=== PATIENT | male | born 1960 | race American Indian/Alaskan Native ===

== ENCOUNTER 2017-03-29 18:15 | Inpatient (IN) ==
[2017-03-29] MEDS ORDERED: IOPAMIDOL 100 ML BOTTLE IJ ONE (18:16)
[2017-03-29] MEDS ORDERED: IPRATROPIUM/ALBUTEROL 3 ML AMPUL.NEB NEB ONE ×3 (18:32→19:28)
[2017-03-29] MEDS ORDERED: 0.9 % SODIUM CHLORIDE 1,000 ML IV ONE ×2 (18:46→19:48)
[2017-03-29 19:12] LABS: Basophils # (Auto) 0 K/mcL (0.0-0.3); Basophils % (Auto) 0.3 % (0.0-2.0); Eosinophils # (Auto) 0.7 K/mcL (0.0-0.7); Eosinophils % (Auto) 5.5 % (0.0-7.0); Granulocytes % (Auto) 61.4 % (38.0-78.0); Lymphocytes # (Auto) 2.9 K/mcL (1.5-4.8); Lymphocytes % (Auto) 23.5 % (15.5-49.0); Mean Cell Volume 85.7 fL (80.0-100.0); Mean Corpuscular HGB Conc 33.6 g/dL (31.0-36.0); Mean Corpuscular Hemoglobin 28.8 pg (26.0-34.0); Monocytes # (Auto) 1.1 K/mcL (0.1-0.9); Monocytes % (Auto) 9.3 % (1.0-12.0); Platelet Count 352 K/mcL (140-440); RBC 4.91 M/mcL (4.50-5.90); Red Cell Distribution Width 13.9 % (11.5-14.5)
[2017-03-29 19:28] LABS: ALT/SGPT 11 U/l (0-40); Albumin 3.9 gm/dL (3.2-5.2); Albumin/Globulin Ratio 0.8 (1.0-2.3); Alkaline Phosphatase 116 U/L (39-117); Blood Urea Nitrogen 24 mg/dl (6-20); proBNP 298.6 pg/ml (0-125)
--- NOTE | 2017-03-29 19:50 | Emergency Department Note ---
SOB HPI - General Chief Complaint: Shortness of Breath/Dyspnea Stated Complaint: shortness of breath Time Seen by Provider: 03/29/17 18:46 Source: patient Mode of arrival: ambulatory Limitations: no limitations - History of Present Illness 56-year-old male comes in with complaint of slowly worsening shortness of breath over the last 1-2 years. He is wheezing and has a history of asthma and briefly smoked back in the 1970s. He has an upcoming appointment with Dr. Burr, the clean room technician, for possible idiopathic pulmonary fibrosis next month. He is not on home oxygen. He does have some chest pressure but no chest pain. Denies fever chills nausea vomiting diarrhea. He states, "I just can't breathe". Looking on his history he also has a history of bronchiectasis. No specific trigger or recent illness - Related Data Home Medications Medication Instructions Recorded Confirmed aspirin 81 mg tablet,delayed 81 mg PO QDAY 03/28/17 03/29/17 release furosemide 20 mg tablet 20 mg PO QDAY 03/28/17 03/29/17 lisinopril 10 mg tablet 10 mg PO QDAY 03/28/17 03/29/17 omeprazole 20 mg capsule,delayed 20 mg PO QDAY cap 03/28/17 03/29/17 release Allergies Allergy/AdvReac Type Severity Reaction Status Date / Time Cyclobenzaprine Allergy Unknown Verified 03/29/17 18:20 naproxen Allergy Unknown Verified 03/29/17 18:20 Review of Systems All systems ED: reviewed and negative except as stated. Past Medical History - Past Medical History Attestation: Yes: The following information was validated with the patient. Medical history: Reports: asthma (and bronchiectasis), coronary artery disease, CVA, hyperlipidemia, hypertension, renal disease, other (psoriasis) Surgical history ED: Reports: no surgical history - Social History smoking status: Former smoker Alcohol use: Reports: Occasionally Physical Exam Mild respiratory distress. Normocephalic atraumatic. Conjunctiva clear sclerae anicteric. No nasal discharge or congestion. Oropharynx pink and moist. Neck is supple without lymphadenopathy thyromegaly or carotid bruit. Heart is regular rate and rhythm no murmurs appreciated. Lungs are basically clear to auscultation bilaterally but he does have an end expiratory wheeze with pursed lip breathing. He does have some modest improvement after single breathing treatment but end expiratory wheeze and shortness of breath remains. Abdomen is soft nontender nondistended. +2 radial pulse. No pedal edema. He is alert oriented able to answer questions appropriately and can talk in full sentences but he does take frequent shallow breaths. No dysarthria ataxia - General Limitations: no limitations Course Vital Signs Temperature 98.0 F 03/29/17 18:16 Respiratory Rate 30 H 03/29/17 18:16 Blood Pressure 100/61 03/29/17 18:16 Pulse Oximetry (%) 90 03/29/17 18:16 Temperature 98.0 F 03/29/17 18:16 Pulse Rate 106 H 03/29/17 20:04 Respiratory Rate 26 H 03/29/17 20:04 Blood Pressure 131/101 03/29/17 20:04 Pulse Oximetry (%) 96 03/29/17 20:04 Shortness of Breath/Dyspnea - Lab Data Lab results reviewed: Yes I reviewed the patient's lab results. Result diagrams: 03/29/17 18:20 03/29/17 18:20 Lab Results 03/29/17 03/29/17 03/29/17 Range/Units 18:20 18:20 18:20 WBC 12.3 H (4.5-11.0) K/mcL RBC 4.91 (4.50-5.90) M/mcL Hgb 14.1 (13.5-16.5) g/dL Hct 42.1 (41.0-55.0) % POC Hct 41.0 (41.0-55.0) % MCV 85.7 (80.0-100.0) fL MCH 28.8 (26.0-34.0) pg MCHC 33.6 (31.0-36.0) g/dL RDW 13.9 (11.5-14.5) % Plt Count 352 (140-440) K/mcL MPV 8.3 (7.4-10.4) fL Gran % 61.4 (38.0-78.0) % Lymph % (Auto) 23.5 (15.5-49.0) % [place] % (Auto) 9.3 (1.0-12.0) % Eos % (Auto) 5.5 (0.0-7.0) % Baso % (Auto) 0.3 (0.0-2.0) % Gran # 7.5 (1.8-8.0) K/mcL Lymph # (Auto) 2.9 (1.5-4.8) K/mcL [place] # (Auto) 1.1 H (0.1-0.9) K/mcL Eos # (Auto) 0.7 (0.0-0.7) K/mcL Baso # (Auto) 0 (0.0-0.3) K/mcL D-Dimer 1.86 H (0.00-0.40) ug/ml POC Sodium 140 (133-145) mmol/L Sodium 138 (133-145) mmol/L POC Potassium 3.6 (3.3-5.1) mmol/L Potassium 3.3 (3.3-5.1) mmol/L POC Chloride 107 (96-108) mmol/L Chloride 99 (96-108) mmol/L Carbon Dioxide 21 L (22-30) mmol/L POC Total CO2 21 L (22-30) mmol/L Anion Gap 18.0 H (8-16) POC BUN 24 H (6-20) mg/dl BUN 24 H (6-20) mg/dl Creatinine 1.8 H (0.7-1.2) mg/dl POC Creatinine 1.6 H (0.7-1.2) mg/dl GFR Calculation 41 Glucose 118 H (70-105) mg/dL POC Glucose 109 H (70-105) mg/dL Calcium 8.6 (8.6-10.4) mg/dl POC WB Ioniz Calcium 0.96 L (1.16-1.32) mmol/L Total Bilirubin 0.4 (0.0-1.0) mg/dL AST 16 (0-37) U/l ALT 11 (0-40) U/l Alkaline Phosphatase 116 (39-117) U/L Troponin T (0-0.03) ng/ml NT-Pro-B Natriuret Pep 298.6 H (0-125) pg/ml Total Protein 8.7 H (5.9-8.4) gm/dL Albumin 3.9 (3.2-5.2) gm/dL Globulin 4.8 H (2.2-3.7) gm/dL Albumin/Globulin Ratio 0.8 L (1.0-2.3) 03/29/17 Range/Units 18:20 WBC (4.5-11.0) K/mcL RBC (4.50-5.90) M/mcL Hgb (13.5-16.5) g/dL Hct (41.0-55.0) % POC Hct (41.0-55.0) % MCV (80.0-100.0) fL MCH (26.0-34.0) pg MCHC (31.0-36.0) g/dL RDW (11.5-14.5) % Plt Count (140-440) K/mcL MPV (7.4-10.4) fL Gran % (38.0-78.0) % Lymph % (Auto) (15.5-49.0) % [place] % (Auto) (1.0-12.0) % Eos % (Auto) (0.0-7.0) % Baso % (Auto) (0.0-2.0) % Gran # (1.8-8.0) K/mcL Lymph # (Auto) (1.5-4.8) K/mcL [place] # (Auto) (0.1-0.9) K/mcL Eos # (Auto) (0.0-0.7) K/mcL Baso # (Auto) (0.0-0.3) K/mcL D-Dimer (0.00-0.40) ug/ml POC Sodium (133-145) mmol/L Sodium (133-145) mmol/L POC Potassium (3.3-5.1) mmol/L Potassium (3.3-5.1) mmol/L POC Chloride (96-108) mmol/L Chloride (96-108) mmol/L Carbon Dioxide (22-30) mmol/L POC Total CO2 (22-30) mmol/L Anion Gap (8-16) POC BUN (6-20) mg/dl BUN (6-20) mg/dl Creatinine (0.7-1.2) mg/dl POC Creatinine (0.7-1.2) mg/dl GFR Calculation Glucose (70-105) mg/dL POC Glucose (70-105) mg/dL Calcium (8.6-10.4) mg/dl POC WB Ioniz Calcium (1.16-1.32) mmol/L Total Bilirubin (0.0-1.0) mg/dL AST (0-37) U/l ALT (0-40) U/l Alkaline Phosphatase (39-117) U/L Troponin T < 0.01 (0-0.03) ng/ml NT-Pro-B Natriuret Pep (0-125) pg/ml Total Protein (5.9-8.4) gm/dL Albumin (3.2-5.2) gm/dL Globulin (2.2-3.7) gm/dL Albumin/Globulin Ratio (1.0-2.3) rterial blood gas shows a pH 7.4 PCO2 of 40 PO2 of 81% on oxygen - Radiology Data Radiology results reviewed: Yes I reviewed the patient's radiology results. CT scan with angiogram of the chest is done to rule out pulmonary embolism- no embolism is seen. This is compared to previous CT from 4 months ago but today' s scan also shows a pneumonia atop likely end-stage pulmonary fibrosis and bronchiectasis - EKG Data EKG attestation: Yes I reviewed and interpreted this EKG. EKG results narrative: EKG shows a rate of 100 normal sinus rhythm with LVH Disposition Pt seen by BOTTLE LABEL INSPECTOR/PA only: No (MD only) Clinical Impression: Hypoxia, Pulmonary fibrosis Pneumonia Qualifiers: Pneumonia type: due to unspecified organism Laterality: bilateral Lung location : lower lobe of lung Qualified Code(s): J18.9 - Pneumonia, unspecified organism Bronchiectasis Qualifiers: Bronchiectasis type: with acute lower respiratory infection Qualified Code(s): J47.0 - Bronchiectasis with acute lower respiratory infection Summary: patient was initially brought in with oxygen saturations in the 70s - he required 4 L to bring him into the 90s. He does not have home oxygen. Workup done with CT angiogram, laboratory, EKG and ABG. He was given 2 breathing treatments which helped only modestly. He continued to require respiratory support Laboratory shows leukocytosis and CT scan showed new bilateral pneumonia on top end-stage pulmonary fibrosis and bronchiectasis. started Zosyn. discussed case with Dr. Dowling the hospitalist agreed to accept the patient in transfer for further inpatient care Disposition: Xfer As Inpt ([facility]) Condition: Serious Referrals: Kristopher Tillman MD [Primary Care Provider] -
--- NOTE | 2017-03-29 20:13 | Cat Scan Report ---
CLINICAL INFORMATION: History of severe interstitial lung disease with extensive bronchiectasis and honeycombing. Hypoxia. COMPARISON: CT scan dated 10/25/2016. Chest x-rays dated 01/01/2017 and 10/18/2016 TECHNIQUE: Axial images obtained through the chest. 80 mL intravenous contrast administration was administered, and scanning was performed during pulmonary arterial phase. Sagittally and coronally reformatted images were obtained. MIP reformatted images. FINDINGS: Main pulmonary artery, right pulmonary artery, left pulmonary artery are negative. No intraluminal filling defects. No lobar, segmental, or subsegmental abnormalities. Negative examination for pulmonary embolism. Very severe bilateral lung disease. There is extensive bilateral lobe bronchiectasis. There is mild bronchiectasis in the right middle lobe. There is honeycombing. Findings are consistent with severe interstitial lung disease. There has been interval development of extensive groundglass density throughout both lungs. This is predominantly in the lower lobes but there are focal groundglass infiltrates in the upper lobes as well. This is a nonspecific appearance and this patient with severe underlying lung disease. Super imposed pneumonia is suspected. There is extensive mediastinal and right hilar adenopathy. Adenopathy is unchanged since previous examination. No pleural fluid. No pericardial fluid. No axillary or supraclavicular adenopathy. Upper abdomen is negative except for calcified gallstones. Negative thoracic spine. No rib or sternal lesions. IMPRESSION: 1. Very severe lung disease with extensive bronchiectasis and honeycombing. Appearance is consistent with interstitial pulmonary fibrosis. 2. Extensive groundglass density. Findings suggest superimposed pneumonia 3. Mediastinal and right hilar adenopathy, stable 4. Cholelithiasis 5. Negative pulmonary CTA Interpreted and Authenticated by: Jeffrey Schrader 03/29/17
[2017-03-29] MEDS ORDERED: PIPERACILLIN SODIUM/TAZOBACTAM 3.375 GM in DEXTROSE 5% IN WATER 50 ML IV ONE (20:45)
--- NOTE | 2017-03-29 21:00 | Internal Med History&Physical ---
Medical - H&P: HPI Patient information: Note initiated : 03/29/17 at 8:56 pm Patient: Drew Broussard Jr 56 y/o M admitted on for shortness of breath. History of present illness: Mr. Bobo Hayden is a 56 year old man, his chart indicates he has a past history of alcohol abuse, coronary disease, CHF, stroke. The patient presented to the emergency room today complaining that he had been having dizziness and severe headaches and shortness of breath for more than a year now. He says he is gotten to the point where he just cannot take it anymore. He is feeling extremely weak, whenever he tries to walk more than 15 or 20 feet. If he stops to rest, his breathing eventually gets back to normal. He has had persistent headaches, so has been taking ibuprofen 2 tablets every 4-6 hours at home. I believe he was being seen at the [facility] clinic. It looks like someone had started an evaluation back in October, and the patient says he has an upcoming appointment with our lead recoverer, but he has not been seen yet In the emergency room, he was noted to have room air O2 saturations in the 70s, at rest. CT scan of his chest showed diffuse severe disease, consistent with probable IPF, with superimposed infiltrates, worrisome for a new pneumonia. The patient is admitted for treatment of same. Otherwise, he denies recent fever or chills. He does have a chronic cough that is productive of yellowish to greenish sputum, but only very small amounts. He does report chronic headaches and dizziness. He denies new eye or ear symptoms , or sore throat. He denies swollen glands, chest pain or palpitations, abdominal pain, nausea or vomiting, diarrhea or constipation, dysuria. He denies any significant changes in his weight recently. He does admit that he drinks alcohol on an almost daily basis. He says when he drinks varies from vodka to whiskey to beer, and tends to drink with whatever friends he can find and drinks whenever they have. He could not give me a definite amount. Otherwise, he is unemployed, so they should be limited occupational exposure. He smoked for 5 years or so as a child, but quit around age 15. He has a fairly poor historian, and seems unaware of most of his medical history that probably came from the [facility] clinic. He does not recall ever having any heart issues, but thinks he does recall a stroke at some point in the past, but could not remember timeframe. Past medical history: Alcohol abuse Bronchiectasis/asthma Coronary artery disease CHF Hypertension Folate deficiency GERD History of CVA Hyperlipidemia Vitamin D deficiency X Current medications: (Patient is confused about his medications, and actually told the pharmacist that he was not taking aspirin, after confirming to me that he did take aspirin. He also told her that he is allergic to Naprosyn, but also told me that he has been popping ibuprofen quite frequently.) Omeprazole 20 mg daily Lisinopril 10 mg daily Lasix 20 mg daily 81 mg aspirin daily Ibuprofen, [id number], 2 tabs every 4-6 hours as needed headache Allergies: (Patient is unsure about these) Cyclobenzaprine Naprosyn Family history: The patient believes his mother had diabetes. His father's health is unknown. At least one sister has diabetes. Another sister has some type of lung disease. He says his family is "split apart", so he is not in touch with many of them. He reports he has 6 children. He believes they are all healthy. Social history: Distant smoking history in the 1970s. He says he quit around age 15. He drinks vodka, whiskey, and/or beer, most days, depending on which friends he is hanging around with. He is unemployed, other than doing occasional yard work. He has been very physically limited over the last year or so due to his breathing. I believe he said he currently lives with an ex- girlfriend.. He did not want us to call any family members to notify them that he was here. He stated "they do not let me know when they are in the hospital". Medical - H&P: Meds Home Medications Medication Instructions Recorded Confirmed Type aspirin 81 mg tablet,delayed 81 mg PO QDAY 03/28/17 03/29/17 History release furosemide 20 mg tablet 20 mg PO QDAY 03/28/17 03/29/17 History lisinopril 10 mg tablet 10 mg PO QDAY 03/28/17 03/29/17 History omeprazole 20 mg capsule,delayed 20 mg PO QDAY cap 03/28/17 03/29/17 History release Allergies Allergy/AdvReac Type Severity Reaction Status Date / Time Cyclobenzaprine Allergy Mild Hives Verified 03/30/17 09:27 naproxen Allergy Mild Hives Verified 03/30/17 09:28 Medical - H&P: Exam - Constitutional Vitals: Temp Pulse Resp BP Pulse Ox 98.0 F 105 H 32 H 134/76 97 03/29/17 18:16 03/29/17 20:54 03/29/17 20:54 03/29/17 20:46 03/29/17 20:54 On arrival, O2 saturation 86% on room air, dropping into the 70s per the ER MD. 2 saturation 90% on 4 L nasal cannula. Respiratory rate varying from 20-40. Heart rate 105. On exam, initially the patient is not in any distress. He does seem to have mild dyspnea with talking. Otherwise he is calm and cooperative, but he seems to have very limited recall of any of his medical history or even his symptoms. Head: Is normocephalic, atraumatic. Eyes: PERRLA, EOMI, anicteric. Ears: TMs and canals are clear. Pharynx: Is clear. Teeth are in good repair. Mucosa appears normal. Neck: Appears supple, without obvious lymphadenopathy, JVD, thyromegaly, bruits. Cardiac exam: Shows regular rate and rhythm, with normal S1 and S2. I do not appreciate murmurs, rubs, gallops. Lungs: Have fairly diffuse fine crackles throughout all lung figueroa. No significant wheezing or rhonchi is noted at this time. Abdomen: Soft and nontender, without obvious masses. Bowel sounds are active. There is no guarding or rebound. Extremities: Show no significant edema. Pulses are intact. Neurologic exam: Patient is alert and oriented, but extremely forgetful. He seems to lack any insight at all into his health issues. Otherwise his neuro exam is grossly nonfocal. Skin exam: Does not show any obvious rashes or other worrisome skin lesions. Medical - H&P: Reslt - Labs CBC & Chem 7: 03/30/17 05:15 03/30/17 05:15 Labs: Short CBC 03/29/17 Range/Units 18:20 WBC 12.3 H (4.5-11.0) K/mcL Hgb 14.1 (13.5-16.5) g/dL Hct 42.1 (41.0-55.0) % Plt Count 352 (140-440) K/mcL BMP 03/29/17 18:20 Sodium 138 Potassium 3.3 Chloride 99 Carbon Dioxide 21 L BUN 24 H Creatinine 1.8 H Glucose 118 H Calcium 8.6 Cardiac Enzymes 03/29/17 Range/Units 18:20 Troponin T < 0.01 (0-0.03) ng/ml Liver Function 03/29/17 Range/Units 18:20 Total Bilirubin 0.4 (0.0-1.0) mg/dL AST 16 (0-37) U/l ALT 11 (0-40) U/l Alkaline Phosphatase 116 (39-117) U/L Albumin 3.9 (3.2-5.2) gm/dL March 29: D-dimer is elevated at 1.86 Lactic acid is normal at 1.2 next Ionized calcium is low at 0.96 Troponin is normal at less than 0.01 BNP is mildly elevated at 298 Albumin is normal at 3.9 Globulin level is high at 4.8 ABG on room air: PH 7.4, PCO2 40, PO2 81, O2 saturation 96% CT angiogram: Shows severe lung disease with extensive bronchiectasis and honeycombing, consistent with interstitial pulmonary fibrosis. Extensive groundglass infiltrates, in both lungs, are dominantly in the lower lobes, but also focal groundglass infiltrates in the upper lobes. Suggest pneumonia. Mediastinal and right hilar adenopathy, stable. Cholelithiasis. Negative for PE. EKG: Shows sinus tachycardia at a rate of about 100, left axis deviation, nonspecific ST-T changes. January 14, 2017: PFTs: FVC is 2 L which is 51% of predicted. FEV1 is 1.7 L, 58% of predicted. FEV 1 / FVC is 86%. FEF 25-75 is 2.1, 79% of predicted. DLCO is 7.9, which is 31% of predicted. October 26, 2016: Echocardiogram: Moderate hypokinesis of the ventricular septum. Mildly depressed LV function, with ejection fraction 45-50%. Medical - H&P: A/P (1) Pneumonia Current visit: Yes Status: Acute (2) Bronchiectasis Current visit: Yes Status: Chronic (3) Hypoxia Current visit: Yes Status: Acute (4) Pulmonary fibrosis Current visit: Yes Status: Chronic (5) CAD (coronary artery disease) Current visit: No Status: Chronic (6) Alcohol abuse Current visit: Yes Status: Chronic - Narrative A/P Narrative: #1. Pulmonary/infectious disease. -This patient with apparent severe underlying lung disease presents with shortness of breath and hypoxia, and CT findings suggestive of pneumonia superimposed on probable pulmonary fibrosis. Admit. -Blood and sputum cultures -Empiric antibiotic coverage with Zosyn and Zithromax. -Consider inhaled steroids for COPD. -Bronchodilators, oxygen, pulmonary toilet. -Check follow-up chest x-ray in the morning. Check follow-up labs in the morning. -Pulmonary consult, if available. 2. CODE STATUS: Full code. He does not have a written POA, but says he would choose his cousin, Yane Wei. He says he will give her a call in the morning. 3. DVT prophylaxis: Subcu heparin. 4. Renal. Patient presents with abnormal renal function. It is unclear if this is acute or chronic. Hydrate, and recheck labs tomorrow. 5. History of alcohol abuse, ongoing. Start him on the alcohol withdrawal protocol. - crisis intervention counselor regarding the overall effect on his long-term health. 6. History of vitamin D deficiency. -Replace. 7. Cardiac. History of coronary disease, CHF, hypertension. -Continue lisinopril, aspirin, Lasix, assuming his renal function tolerates.. -Inquired about why he is not on a statin cholesterol drug. Since he really has no idea if he is ever been on one, I will go ahead and start him on Lipitor. 8. GI. History of GERD. Continue PPI. 9. Neurologic. Reported history of stroke. Continue aspirin, lisinopril. Consider statin. This visit took approximately 60 minutes, to review the patient's previous test , review his case with the ER MD, review more recent records and test results, interview and examine him, and write orders.
[2017-03-29] MEDS ORDERED: ACETAMINOPHEN 325 MG TABLET PO PRN (21:26)
[2017-03-29] MEDS ORDERED: DOCUSATE SODIUM 100 MG CAPSULE PO PRN (21:26)
[2017-03-29] MEDS ORDERED: ONDANSETRON 4 MG/2 ML VIAL IV PRN (21:26)
[2017-03-29] MEDS ORDERED: MAGNESIUM HYDROXIDE 30 ML ORAL.SUSP PO PRN (21:26)
[2017-03-29] MEDS ORDERED: NALOXONE HCL 0.4 MG/ML VIAL IV PRN (21:26)
[2017-03-29] MEDS ORDERED: ALBUTEROL SULFATE 2.5 MG/3 ML NEBULIZER NEB PRN (21:26)
[2017-03-29] MEDS ORDERED: POTASSIUM CHLORIDE 20 MEQ/10 ML VIAL IV ONE (21:34)
[2017-03-29] MEDS: POTASSIUM CHLORIDE 20 MEQ in 0.45 % SODIUM CHLORIDE 1,000 ML IV SCH (21:50)
[2017-03-29] MEDS: AZITHROMYCIN 500 MG in DEXTROSE 5% IN WATER 250 ML IV SCH (22:20)
[2017-03-30] MEDS ORDERED: PIPERACILLIN SODIUM/TAZOBACTAM 3.375 GM VIAL IV ONE (00:54)
[2017-03-30] MEDS: 0.9 % SODIUM CHLORIDE 10 ML SYRINGE IV SCH ×4 (01:13→21:08)
[2017-03-30] MEDS: PIPERACILLIN SODIUM/TAZOBACTAM 3.375 GM in DEXTROSE 5% IN WATER 50 ML IV SCH ×4 (01:14→20:58)
[2017-03-30] MEDS ORDERED: cloNIDine HCL 0.1 MG TABLET PO PRN (01:42)
[2017-03-30] MEDS ORDERED: LORazepam 2 MG/ML VIAL IV PRN (01:42)
[2017-03-30] MEDS: IPRATROPIUM/ALBUTEROL 3 ML AMPUL.NEB NEB SCH ×4 (01:54→19:15)
[2017-03-30] MEDS: HEPARIN 5,000 UNIT/ML VIAL SQ SCH ×3 (03:04→21:02)
[2017-03-30] MEDS: HYDROcodone/APAP 5/325MG TABLET PO PRN (05:30)
[2017-03-30] MEDS ORDERED: 0.9 % SODIUM CHLORIDE 10 ML SYRINGE IV SCH (06:00)
[2017-03-30 06:36] LABS: Basophils # (Auto) 0 K/mcL (0.0-0.3); Basophils % (Auto) 0.3 % (0.0-2.0); Eosinophils # (Auto) 0.7 K/mcL (0.0-0.7); Eosinophils % (Auto) 5.8 % (0.0-7.0); Granulocytes % (Auto) 68.6 % (38.0-78.0); Lymphocytes % (Auto) 17.7 % (15.5-49.0); Mean Cell Volume 86.4 fL (80.0-100.0); Mean Corpuscular Hemoglobin 28.5 pg (26.0-34.0); Monocytes # (Auto) 0.9 K/mcL (0.1-0.9); Monocytes % (Auto) 7.6 % (1.0-12.0); Platelet Count 311 K/mcL (140-440); RBC 4.58 M/mcL (4.50-5.90); Red Cell Distribution Width 13.6 % (11.5-14.5)
[2017-03-30] MEDS: PANTOPRAZOLE 40 MG TABLET PO SCH (06:59)
[2017-03-30] MEDS: POTASSIUM CHLORIDE 20 MEQ in 0.45 % SODIUM CHLORIDE 1,000 ML IV SCH ×4 (07:00→21:07)
[2017-03-30 07:32] LABS: ALT/SGPT 9 U/l (0-40); Albumin 3.3 gm/dL (3.2-5.2); Albumin/Globulin Ratio 0.8 (1.0-2.3); Alkaline Phosphatase 95 U/L (39-117); Bilirubin,Direct < 0.2 mg/dL (0.0-0.3); Blood Urea Nitrogen 13 mg/dl (6-20); Gamma Glutamyl Transpeptidase 33 U/L (8-61); Magnesium 2.1 mg/dL (1.6-2.5); Uric Acid 6.4 mg/dL (2.5-8.0)
[2017-03-30] MEDS: LISINOPRIL 10 MG TABLET PO SCH (08:57)
[2017-03-30] MEDS: MULTIVIT,THER IRON,CA,FA & MIN 1 TABLET PO SCH (08:57)
[2017-03-30] MEDS: FUROSEMIDE 20 MG TABLET PO SCH (08:58)
[2017-03-30] MEDS: FOLIC ACID 1 MG TABLET PO SCH (08:59)
[2017-03-30] MEDS: THIAMINE 100 MG TABLET PO SCH (08:59)
[2017-03-30 09:39] LABS: Ionized Calcium 1.13 mmol/L (1.16-1.32)
--- NOTE | 2017-03-30 10:12 | XRay Report ---
CLINICAL INFORMATION: Dyspnea TECHNIQUE: AP portable upright chest x-ray COMPARISON: Previous chest x-rays dated 01/01/2017 and 10/18/2016. Comparison made with previous chest CT scans dated 03/29/2017 and 10/25/2016 FINDINGS: Chest CT scan is consistent with severe lung disease, probably interstitial fibrosis. There are diffuse superimposed parenchymal infiltrates which are significantly worse than on 01/01/2017. Radiographic appearance is consistent with underlying lung disease and acute pneumonia. Acute pulmonary edema is possible. Continued radiographic follow-up recommended IMPRESSION: Diffuse parenchymal infiltrates, significantly worse than on 01/01/2017 Interpreted and Authenticated by: Jeffrey Schrader 03/30/17
[2017-03-30] MEDS: ASPIRIN 81 MG TAB.CHEW PO SCH (11:33)
--- NOTE | 2017-03-30 12:59 | Internal Med Progress Note ---
Medical - PN: Subj Patient information: Note initiated : 03/30/17 at 12:59 pm Patient: Drew Broussard Jr 56 y/o M admitted on 03/29/17 for shortness of breath. Interval history: March 29, 2017: History of present illness: Mr. Bobo Hayden is a 56 year old man, whose chart indicates he has a past history of alcohol abuse, coronary disease, CHF, stroke. The patient presented to the emergency room today complaining that he had been having dizziness and severe headaches and shortness of breath for more than a year now. He says he is gotten to the point where he just cannot take it anymore. He is feeling extremely weak, whenever he tries to walk more than 15 or 20 feet. If he stops to rest, his breathing eventually gets back to normal. He has had persistent headaches, so has been taking ibuprofen 2 tablets every 4-6 hours at home. I believe he was being seen at the [facility]. It looks like someone had started an evaluation back in October, and the patient says he has an upcoming appointment with our boiler/chiller operator, but he has not been seen yet In the emergency room, he was noted to have room air O2 saturations in the 70s, at rest. CT scan of his chest showed diffuse severe disease, consistent with probable IPF, with superimposed infiltrates, worrisome for a new pneumonia. The patient is admitted for treatment of same. Otherwise, he denies recent fever or chills. He does have a chronic cough that is productive of yellowish to greenish sputum, but only very small amounts. He does report chronic headaches and dizziness. He denies new eye or ear symptoms , or sore throat. He denies swollen glands, chest pain or palpitations, abdominal pain, nausea or vomiting, diarrhea or constipation, dysuria. He denies any significant changes in his weight recently. March 30: Today, the patient says he feels about the same. He feels okay at rest, but with trying to walk to the bathroom he becomes extremely short of breath. He still has a cough, productive of tiny amounts of yellowish phlegm, with some red streaks. His brother is actually here in the room with him today. He initially got up to use the bathroom early this morning and took his oxygen off. When he got back in bed, his O2 saturations red around 60%. After about 5 minutes on 4 L nasal cannula, he did return back up to 94%. When I entered the room today, he had just come back from the bathroom, while wearing his oxygen. His O2 levels are still down in the 60s at that time, and it did take about 5 minutes before he rebounded into the 90s. Otherwise, he denies fever or chills, chest pain or palpitations, abdominal pain , nausea or vomiting, diarrhea or constipation or dysuria. - Constitutional Vitals: Vital Signs Temp Pulse Resp BP Pulse Ox 97.2 F 100 H 20 133/77 90 03/30/17 12:00 03/30/17 07:47 03/30/17 12:00 03/30/17 12:00 03/30/17 12:00 Period Temp Pulse Resp BP Sys/Hernandez Pulse Ox Last 24 Hr 96.7 F-98.0 F 95-103 14-20 121-138/77-84 90-96 Intake and Output 03/29/17 03/30/17 03/30/17 21:59 05:59 13:59 Intake Total 400 / 400 1610 / 1610 Output Total 425 / 425 1275 / 1275 Balance -25 / -25 335 / 335 Weight 169 lb Patient Weight 03/31/17 05:59 Weight 169 lb O2 saturation is ranging from 60% to about 96%, on 4 L nasal cannula. Intake & Output: Intake & Output 03/29/17 03/30/17 03/30/17 21:59 05:59 13:59 Intake Total 400 / 400 1610 / 1610 Output Total 425 / 425 1275 / 1275 Balance -25 / -25 335 / 335 Weight 169 lb Intake: IV 1010 / 1010 Potassium Chloride 20 Meq 1010 / 1010 In Sodium Chloride 0.45% 1,000 ml @ 100 mls/hr IV .Q10H6M [facility] Rx#: [id number] Oral 400 / 400 GI Tube Flush 600 / 600 Output: Void Amount 425 / 425 1275 / 1275 Other: Meal Breakfast Percent of Meal Consumed 100% Feeding Ability Independent O2 saturation is ranging from 60% to about 96%, on 4 L nasal cannula. On exam, he is a well-developed well-nourished man, who appears older than his stated age. Neck is supple without obvious lymphadenopathy or JVD. Cardiac exam shows regular rate and rhythm without obvious murmurs. Lung exam shows fairly diffuse very fine crackles heard throughout all lung figueroa. No significant wheezing is noted. Abdomen is soft and nontender. Extremities show no significant edema. Neurologic exam is grossly nonfocal. Medical - PN: Obj Da - Labs CBC & Chem 7: 03/30/17 05:15 03/30/17 05:15 Labs: Abnormal Lab Results 03/30/17 03/30/17 03/30/17 08:42 05:15 05:15 WBC 11.2 H Hgb 13.1 L Hct 39.6 L Calcium 7.9 L Ionized Calcium Penny 1.13 L Lactate Dehydrogenase 347 H Globulin 4.1 H Albumin/Globulin Ratio 0.8 L March 30: -Chest x-ray: Diffuse parenchymal infiltrates, significantly worse than the chest x-ray from January 012016. There is evidence for pulmonary fibrosis with superimposed infiltrates consistent with acute pneumonia. Acute pulmonary edema is also possible. CBC differential looks normal this morning. Chemistries: BUN and creatinine are back to normal after hydration. LFTs are within normal limits except for LDH which is elevated at 347. Globulin level remains elevated at 4.1, with normal albumin of 3.3 Calcium continues low at 7.9. Ionized calcium is low at 1.13 March 29: CBC shows white blood cell count 12,000, hemoglobin 14, hematocrit 42, absolute monocyte count a bit elevated at 1100. D-dimer was elevated at 1.86 Lactic acid normal at 1.2 Chemistry panel showed normal electrolytes, but BUN elevated at 24, creatinine elevated at 1.8. Glucose 118. LFTs within normal limits. BNP slightly elevated at 298. ionized calcium is low at 0.96 Troponin is normal at less than 0.01 BNP is mildly elevated at 298 Albumin is normal at 3.9 Globulin level is high at 4.8 ABG on room air: PH 7.4, PCO2 40, PO2 81, O2 saturation 96% CT angiogram: Shows severe lung disease with extensive bronchiectasis and honeycombing, consistent with interstitial pulmonary fibrosis. Extensive groundglass infiltrates, in both lungs, are dominantly in the lower lobes, but also focal groundglass infiltrates in the upper lobes. Suggest pneumonia. Mediastinal and right hilar adenopathy, stable. Cholelithiasis. Negative for PE. EKG: Shows sinus tachycardia at a rate of about 100, left axis deviation, nonspecific ST-T changes. January 14, 2017: PFTs: FVC is 2 L which is 51% of predicted. FEV1 is 1.7 L, 58% of predicted. FEV 1 / FVC is 86%. FEF 25-75 is 2.1, 79% of predicted. DLCO is 7.9, which is 31% of predicted. October 26, 2016: Echocardiogram: Moderate hypokinesis of the ventricular septum. Mildly depressed LV function, with ejection fraction 45-50%. Meds: Medications Acetaminophen (Tylenol) 650 mg PO Q6HP PRN PRN Reason: PAIN/FEVER > 101 Hydrocodone Bitart/Acetaminophen ([place] 5/325mg) 1 tab PO Q4HP PRN PRN Reason: Pain Last Admin: 03/30/17 05:30 Dose: 1 tab Albuterol Sulfate (Ventolin) 2.5 mg NEB Q2HP PRN PRN Reason: Shortness Of Breath Albuterol/Ipratropium (Duoneb) 3 ml NEB Q6HRT [facility] Last Admin: 03/30/17 07:45 Dose: 3 ml Aspirin (Aspirin) 81 mg PO DAILY [facility] Last Admin: 03/30/17 11:33 Dose: 81 mg Budesonide (Pulmicort) 0.5 mg NEB Q12 [facility] Clonidine HCl (Catapres) 0.1 mg PO Q4HP PRN PRN Reason: Alcohol Withdrawal Docusate Sodium (Colace) 100 mg PO BID PRN PRN Reason: Constipation Folic Acid (Folic Acid) 1 mg PO DAILY [facility] Last Admin: 03/30/17 08:59 Dose: 1 mg Furosemide (Lasix) 20 mg PO DAILY [facility] Last Admin: 03/30/17 08:58 Dose: 20 mg Heparin Sodium (Porcine) (Heparin) 5,000 unit SQ Q12 [facility] Last Admin: 03/30/17 08:57 Dose: 5,000 unit Azithromycin 500 mg/ Dextrose 250 mls @ 250 mls/hr IV DAILY [facility] Stop: 03/31/17 09:59 Last Admin: 03/29/17 22:20 Dose: 250 mls/hr Potassium Chloride 20 meq/ (Sodium Chloride) 1,010 mls @ 100 mls/hr IV .Q10H6M [facility] Last Admin: 03/30/17 08:46 Dose: 100 mls/hr Piperacillin Sod/Tazobactam (Sod 3.375 gm/ Dextrose) 50 mls @ 100 mls/hr IV Q6H [facility] Last Admin: 03/30/17 08:56 Dose: 100 mls/hr Iron Carb/Multivit/Assignment Editor/Folic Acid (Multivitamin W/Minerals) 1 tab PO DAILY [facility] Last Admin: 03/30/17 08:57 Dose: 1 tab Lisinopril (Zestril) 10 mg PO DAILY [facility] Last Admin: 03/30/17 08:57 Dose: 10 mg Lorazepam (Ativan) 1 mg IV Q4HP PRN; Protocol PRN Reason: Alcohol Withdrawal Magnesium Hydroxide (Milk Of Magnesia) 30 ml PO DAILYP PRN PRN Reason: Constipation Naloxone HCl (Narcan) 0.1 mg IV Q2MIN PRN PRN Reason: Opiate Reversal Ondansetron HCl (Zofran) 4 mg IV Q6HP PRN PRN Reason: Nausea And Vomiting Pantoprazole Sodium (Protonix) 40 mg PO QAMAC [facility] Last Admin: 03/30/17 06:59 Dose: 40 mg Sodium Chloride (Saline Flush) 10 ml IV Q8 [facility] Last Admin: 03/30/17 06:31 Dose: Not Given Thiamine HCl (Vitamin B1) 100 mg PO QDAY [facility] Last Admin: 03/30/17 08:59 Dose: 100 mg Medical - PN: A/P - Time Spent With Patient Total time spent is greater than 50% in coordination of care (as documented) at patient's floor/unit and/or counseling patient: Greater than 35 minutes (1) Pneumonia Status: Acute Current Visit: Yes (2) Bronchiectasis Status: Chronic Current Visit: Yes (3) Hypoxia Status: Acute Current Visit: Yes (4) Pulmonary fibrosis Status: Chronic Current Visit: Yes (5) CAD (coronary artery disease) Status: Chronic Current Visit: No - Narrative A/P Narrative: #1. Pulmonary/infectious disease. -This patient with apparent severe underlying lung disease presents with shortness of breath and hypoxia, and CT findings suggestive of pneumonia superimposed on probable pulmonary fibrosis. -Blood and sputum cultures are pending. -Empiric antibiotic coverage with Zosyn and Zithromax. -Consider inhaled steroids for COPD. -Bronchodilators, oxygen, pulmonary toilet. -Check follow-up chest x-ray in the morning. Check follow-up labs in the morning. -Pulmonary consult, if available. -He will clearly need to be discharged home on continuous oxygen. 2. CODE STATUS: Full code. He does not have a written POA, but says he would choose his cousin, Yane Wei. He says he will give her a call in the morning. At least he did reach a younger brother today, who is here at the bedside today. 3. DVT prophylaxis: Subcu heparin. 4. Renal. Patient presents with abnormal renal function. Renal function is much improved today, after hydration.. 5. History of alcohol abuse, ongoing. -alcohol withdrawal protocol. - middle school counselor regarding the overall effect on his long-term health. 6. History of vitamin D deficiency. -Replace. 7. Cardiac. History of coronary disease, CHF, hypertension. -Continue lisinopril, aspirin, Lasix, assuming his renal function tolerates.. -Inquired about why he is not on a statin cholesterol drug. Since he really has no idea if he is ever been on one, I will go ahead and start him on Lipitor. 8. GI. History of GERD. Continue PPI. 9. Neurologic. Reported history of stroke. Continue aspirin, lisinopril. Consider statin. #10. Hematologic. Patient does present with anemia, and elevated globulin fraction. It is unclear what role that is playing in his pulmonary symptoms. -Check serum protein electrophoresis. Approximately 35 minutes was spent today, reviewing patient's test results, interviewing and examining him, reviewing test results and plan of care with the patient and his brother, and writing orders. Medical - PN: Qual - VTE Deep Vein Thrombosis/Pulmonary Embolism Present on Admission: No
[2017-03-30] MEDS: BUDESONIDE 0.5 MG/2 ML AMPUL.NEB NEB SCH ×2 (13:37→19:35)
[2017-03-30] MEDS: AZITHROMYCIN 500 MG in DEXTROSE 5% IN WATER 250 ML IV SCH (15:16)
[2017-03-30] MEDS: ATORVASTATIN 20 MG TABLET PO SCH (21:02)
[2017-03-30] MEDS: VITAMIN D3 1,000 UNIT TABLET PO SCH (21:02)
[2017-03-30] MEDS: CALCIUM CARBONATE 500 MG TAB.CHEW CHEWED SCH (21:02)
[2017-03-31] MEDS: IPRATROPIUM/ALBUTEROL 3 ML AMPUL.NEB NEB SCH ×4 (01:28→19:22)
[2017-03-31] MEDS: PIPERACILLIN SODIUM/TAZOBACTAM 3.375 GM in DEXTROSE 5% IN WATER 50 ML IV SCH ×4 (01:28→20:35)
[2017-03-31] MEDS: 0.9 % SODIUM CHLORIDE 10 ML SYRINGE IV SCH ×3 (06:10→22:30)
[2017-03-31] MEDS: POTASSIUM CHLORIDE 20 MEQ in 0.45 % SODIUM CHLORIDE 1,000 ML IV SCH ×4 (06:11→20:34)
[2017-03-31 07:31] LABS: Basophils # (Auto) 0 K/mcL (0.0-0.3); Basophils % (Auto) 0.4 % (0.0-2.0); Eosinophils # (Auto) 0.5 K/mcL (0.0-0.7); Eosinophils % (Auto) 5.1 % (0.0-7.0); Granulocytes % (Auto) 69.3 % (38.0-78.0); Lymphocytes # (Auto) 1.7 K/mcL (1.5-4.8); Lymphocytes % (Auto) 16.4 % (15.5-49.0); Mean Cell Volume 86.1 fL (80.0-100.0); Mean Corpuscular HGB Conc 33.1 g/dL (31.0-36.0); Mean Corpuscular Hemoglobin 28.5 pg (26.0-34.0); Monocytes # (Auto) 0.9 K/mcL (0.1-0.9); Monocytes % (Auto) 8.8 % (1.0-12.0); Platelet Count 306 K/mcL (140-440); RBC 4.24 M/mcL (4.50-5.90); Red Cell Distribution Width 13.3 % (11.5-14.5)
[2017-03-31] MEDS: BUDESONIDE 0.5 MG/2 ML AMPUL.NEB NEB SCH ×2 (07:31→19:22)
[2017-03-31 07:59] LABS: ALT/SGPT 9 U/l (0-40); Albumin/Globulin Ratio 0.7 (1.0-2.3); Alkaline Phosphatase 95 U/L (39-117); Bilirubin,Direct 0.3 mg/dL (0.0-0.3); Blood Urea Nitrogen 6 mg/dl (6-20); Gamma Glutamyl Transpeptidase 40 U/L (8-61); Uric Acid 4.3 mg/dL (2.5-8.0)
[2017-03-31] MEDS: FOLIC ACID 1 MG TABLET PO SCH (08:22)
[2017-03-31] MEDS: CALCIUM CARBONATE 500 MG TAB.CHEW CHEWED SCH ×2 (08:22→20:35)
[2017-03-31] MEDS: VITAMIN D3 1,000 UNIT TABLET PO SCH ×2 (08:22→20:35)
[2017-03-31] MEDS: FUROSEMIDE 20 MG TABLET PO SCH (08:22)
[2017-03-31] MEDS: MULTIVIT,THER IRON,CA,FA & MIN 1 TABLET PO SCH (08:22)
[2017-03-31] MEDS: LISINOPRIL 10 MG TABLET PO SCH (08:22)
[2017-03-31] MEDS: PANTOPRAZOLE 40 MG TABLET PO SCH (08:22)
[2017-03-31] MEDS: HEPARIN 5,000 UNIT/ML VIAL SQ SCH ×2 (08:22→20:34)
[2017-03-31] MEDS: THIAMINE 100 MG TABLET PO SCH (08:22)
[2017-03-31] MEDS: ASPIRIN 81 MG TAB.CHEW PO SCH (08:22)
[2017-03-31] MEDS: AZITHROMYCIN 500 MG in DEXTROSE 5% IN WATER 250 ML IV SCH (10:05)
--- NOTE | 2017-03-31 15:22 | Internal Med Progress Note ---
Medical - PN: Subj Patient information: Note initiated : 03/31/17 at 3:18 pm Service Date, if different from initiated Date: [] Patient: Drew Broussard Jr 56 y/o M admitted on 03/29/17 for shortness of breath. Chief Complaint: [] Interval history: March 29, 2017: History of present illness: Mr. Bobo Hayden is a 56 year old man, whose chart indicates he has a past history of alcohol abuse, coronary disease, CHF, stroke. The patient presented to the emergency room today complaining that he had been having dizziness and severe headaches and shortness of breath for more than a year now. He says he is gotten to the point where he just cannot take it anymore. He is feeling extremely weak, whenever he tries to walk more than 15 or 20 feet. If he stops to rest, his breathing eventually gets back to normal. He has had persistent headaches, so has been taking ibuprofen 2 tablets every 4-6 hours at home. I believe he was being seen at the [facility] clinic. It looks like someone had started an evaluation back in October, and the patient says he has an upcoming appointment with our mold stamper and repairer, but he has not been seen yet In the emergency room, he was noted to have room air O2 saturations in the 70s, at rest. CT scan of his chest showed diffuse severe disease, consistent with probable IPF, with superimposed infiltrates, worrisome for a new pneumonia. The patient is admitted for treatment of same. Otherwise, he denies recent fever or chills. He does have a chronic cough that is productive of yellowish to greenish sputum, but only very small amounts. He does report chronic headaches and dizziness. He denies new eye or ear symptoms , or sore throat. He denies swollen glands, chest pain or palpitations, abdominal pain, nausea or vomiting, diarrhea or constipation, dysuria. He denies any significant changes in his weight recently. March 30: Today, the patient says he feels about the same. He feels okay at rest, but with trying to walk to the bathroom he becomes extremely short of breath. He still has a cough, productive of tiny amounts of yellowish phlegm, with some red streaks. His brother is actually here in the room with him today. He initially got up to use the bathroom early this morning and took his oxygen off. When he got back in bed, his O2 saturations red around 60%. After about 5 minutes on 4 L nasal cannula, he did return back up to 94%. When I entered the room today, he had just come back from the bathroom, while wearing his oxygen. His O2 levels are still down in the 60s at that time, and it did take about 5 minutes before he rebounded into the 90s. Otherwise, he denies fever or chills, chest pain or palpitations, abdominal pain , nausea or vomiting, diarrhea or constipation or dysuria. March 31- patient feels a lot better. pulmonology consult pending. on 4 L oxygen. no overnight fever chills nausea vomiting or concerns per medical staff. Improving cough and dyspnea. On antibiotic coverage. friends at bedside. - Constitutional Vitals: Vital Signs Temp Pulse Resp BP Pulse Ox 98.0 F 98 H 20 100/61 96 03/31/17 12:00 03/31/17 13:21 03/31/17 13:21 03/31/17 12:00 03/31/17 12:00 Period Temp Pulse Resp BP Sys/Hernandez Pulse Ox Last 24 Hr 97.6 F-98.3 F 94-111 18-24 100-122/61-77 94-97 Intake and Output 03/31/17 03/31/17 03/31/17 05:59 13:59 21:59 Intake Total 250 / 250 1300 / 1300 Output Total 400 / 400 675 / 675 Balance -150 / -150 625 / 625 Weight 167 lb Patient Weight 04/01/17 05:59 Weight 167 lb Intake & Output: Intake & Output 03/31/17 03/31/17 03/31/17 05:59 13:59 21:59 Intake Total 250 / 250 1300 / 1300 Output Total 400 / 400 675 / 675 Balance -150 / -150 625 / 625 Weight 167 lb Intake: IV 50 / 50 1060 / 1060 Zosyn 3.375 gm In 50 / 50 50 / 50 Dextrose 5% in Water 50 ml @ 100 mls/hr IV Q6H [facility] Rx#:[id number] Potassium Chloride 20 Meq 1010 / 1010 In Sodium Chloride 0.45% 1,000 ml @ 100 mls/hr IV .Q10H6M [facility] Rx#: [id number] Oral 200 / 200 240 / 240 Output: Void Amount 400 / 400 675 / 675 Other: Meal Breakfast Percent of Meal Consumed 100% Feeding Ability Independent # Voids 1 General appearance: cooperative, no acute distress Exam: Alert oriented nonlabored breathing however on 4 L oxygen No anxiety Nondistended abdomen Medical - PN: Obj Da - Labs CBC & Chem 7: 03/31/17 05:52 03/31/17 05:52 Labs: Abnormal Lab Results 03/31/17 03/31/17 03/30/17 05:52 05:52 08:42 WBC RBC 4.24 L Hgb 12.1 L Hct 36.5 L Calcium 7.9 L Ionized Calcium Penny 1.13 L Lactate Dehydrogenase 324 H Albumin 3.0 L Globulin 4.1 H Albumin/Globulin Ratio 0.7 L 03/30/17 03/30/17 05:15 05:15 WBC 11.2 H RBC Hgb 13.1 L Hct 39.6 L Calcium 7.9 L Ionized Calcium Penny Lactate Dehydrogenase 347 H Albumin Globulin 4.1 H Albumin/Globulin Ratio 0.8 L Meds: Medications Acetaminophen (Tylenol) 650 mg PO Q6HP PRN PRN Reason: PAIN/FEVER > 101 Hydrocodone Bitart/Acetaminophen ([place] 5/325mg) 1 tab PO Q4HP PRN PRN Reason: Pain Last Admin: 03/30/17 05:30 Dose: 1 tab Albuterol Sulfate (Ventolin) 2.5 mg NEB Q2HP PRN PRN Reason: Shortness Of Breath Last Admin: 03/30/17 19:35 Dose: 2.5 mg Albuterol/Ipratropium (Duoneb) 3 ml NEB Q6HRT [facility] Last Admin: 03/31/17 13:20 Dose: 3 ml Aspirin (Aspirin) 81 mg PO DAILY [facility] Last Admin: 03/31/17 08:22 Dose: 81 mg Atorvastatin Calcium (Lipitor) 20 mg PO HS [facility] Last Admin: 03/30/17 21:02 Dose: 20 mg Budesonide (Pulmicort) 0.5 mg NEB Q12 [facility] Last Admin: 03/31/17 07:31 Dose: 0.5 mg Calcium Carbonate/Glycine (Tums) 500 mg CHEWED BID [facility] Last Admin: 03/31/17 08:22 Dose: 500 mg Clonidine HCl (Catapres) 0.1 mg PO Q4HP PRN PRN Reason: Alcohol Withdrawal Last Admin: 03/31/17 08:22 Dose: 0.1 mg Docusate Sodium (Colace) 100 mg PO BID PRN PRN Reason: Constipation Folic Acid (Folic Acid) 1 mg PO DAILY [facility] Last Admin: 03/31/17 08:22 Dose: 1 mg Furosemide (Lasix) 20 mg PO DAILY [facility] Last Admin: 03/31/17 08:22 Dose: 20 mg Heparin Sodium (Porcine) (Heparin) 5,000 unit SQ Q12 [facility] Last Admin: 03/31/17 08:22 Dose: 5,000 unit Potassium Chloride 20 meq/ (Sodium Chloride) 1,010 mls @ 100 mls/hr IV .Q10H6M [facility] Last Admin: 03/31/17 11:58 Dose: Not Given Piperacillin Sod/Tazobactam (Sod 3.375 gm/ Dextrose) 50 mls @ 100 mls/hr IV Q6H [facility] Last Infusion: 03/31/17 09:30 Dose: Infused Iron Carb/Multivit/[place]/Folic Acid (Multivitamin W/Minerals) 1 tab PO DAILY [facility] Last Admin: 03/31/17 08:22 Dose: 1 tab Lisinopril (Zestril) 10 mg PO DAILY [facility] Last Admin: 03/31/17 08:22 Dose: 10 mg Lorazepam (Ativan) 1 mg IV Q4HP PRN; Protocol PRN Reason: Alcohol Withdrawal Magnesium Hydroxide (Milk Of Magnesia) 30 ml PO DAILYP PRN PRN Reason: Constipation Naloxone HCl (Narcan) 0.1 mg IV Q2MIN PRN PRN Reason: Opiate Reversal Ondansetron HCl (Zofran) 4 mg IV Q6HP PRN PRN Reason: Nausea And Vomiting Pantoprazole Sodium (Protonix) 40 mg PO QAMAC [facility] Last Admin: 03/31/17 08:22 Dose: 40 mg Sodium Chloride (Saline Flush) 10 ml IV Q8 [facility] Last Admin: 03/31/17 13:39 Dose: Not Given Thiamine HCl (Vitamin B1) 100 mg PO QDAY [facility] Last Admin: 03/31/17 08:22 Dose: 100 mg Vitamin D (Vitamin D3) 1,000 unit PO BID [facility] Last Admin: 03/31/17 08:22 Dose: 1,000 unit Medical - PN: A/P - Time Spent With Patient Total time spent is greater than 50% in coordination of care (as documented) at patient's floor/unit and/or counseling patient: 15 - 24 minutes - Narrative A/P Narrative: * hypoxic respiratory insufficiency-econdary to primary fibrosis. Pulmonology consulted * Multifocal pneumonia-on antibiotic coverage including Zosyn/ azithromycin.Clinical improvement noted * prophylaxis subcutaneous heparin * Full CODE STATUS * Alcohol dependence-monitor for withdrawal * History of CAD/CHF-continue home meds * History of hypertension continue GABRIEL inhibitor * History of stroke continue aspirin and statin Plan * Antibiotic coverage * Pulmonary consult * pre-existing medical condition management as above Medical - PN: Qual - VTE Deep Vein Thrombosis/Pulmonary Embolism Present on Admission: No
[2017-03-31] MEDS: ATORVASTATIN 20 MG TABLET PO SCH (20:35)
[2017-04-01] MEDS: POTASSIUM CHLORIDE 20 MEQ in 0.45 % SODIUM CHLORIDE 1,000 ML IV SCH ×3 (00:55→19:47)
[2017-04-01] MEDS: PIPERACILLIN SODIUM/TAZOBACTAM 3.375 GM in DEXTROSE 5% IN WATER 50 ML IV SCH ×4 (02:45→19:46)
[2017-04-01] MEDS: IPRATROPIUM/ALBUTEROL 3 ML AMPUL.NEB NEB SCH ×4 (02:45→20:00)
[2017-04-01] MEDS: 0.9 % SODIUM CHLORIDE 10 ML SYRINGE IV SCH ×3 (06:10→23:14)
[2017-04-01 07:33] LABS: Basophils # (Auto) 0.1 K/mcL (0.0-0.3); Basophils % (Auto) 0.5 % (0.0-2.0); Eosinophils # (Auto) 0.6 K/mcL (0.0-0.7); Eosinophils % (Auto) 4.2 % (0.0-7.0); Lymphocytes # (Auto) 1.5 K/mcL (1.5-4.8); Lymphocytes % (Auto) 11.3 % (15.5-49.0); Mean Cell Volume 85.9 fL (80.0-100.0); Mean Corpuscular HGB Conc 33.3 g/dL (31.0-36.0); Mean Corpuscular Hemoglobin 28.6 pg (26.0-34.0); Monocytes # (Auto) 1.2 K/mcL (0.1-0.9); Platelet Count 334 K/mcL (140-440); RBC 4.29 M/mcL (4.50-5.90); Red Cell Distribution Width 13.2 % (11.5-14.5)
[2017-04-01 07:49] LABS: ALT/SGPT 10 U/l (0-40); Albumin 3.3 gm/dL (3.2-5.2); Albumin/Globulin Ratio 0.8 (1.0-2.3); Alkaline Phosphatase 104 U/L (39-117); Bilirubin,Direct 0.3 mg/dL (0.0-0.3); Blood Urea Nitrogen 7 mg/dl (6-20); Gamma Glutamyl Transpeptidase 49 U/L (8-61); Uric Acid 3.9 mg/dL (2.5-8.0)
[2017-04-01] MEDS: BUDESONIDE 0.5 MG/2 ML AMPUL.NEB NEB SCH ×2 (07:55→20:00)
[2017-04-01] MEDS: PANTOPRAZOLE 40 MG TABLET PO SCH (08:08)
[2017-04-01] MEDS: HEPARIN 5,000 UNIT/ML VIAL SQ SCH ×2 (08:33→21:39)
[2017-04-01] MEDS: FOLIC ACID 1 MG TABLET PO SCH (08:33)
[2017-04-01] MEDS: CALCIUM CARBONATE 500 MG TAB.CHEW CHEWED SCH ×2 (08:33→21:39)
[2017-04-01] MEDS: MULTIVIT,THER IRON,CA,FA & MIN 1 TABLET PO SCH (08:33)
[2017-04-01] MEDS: FUROSEMIDE 20 MG TABLET PO SCH (08:33)
[2017-04-01] MEDS: LISINOPRIL 10 MG TABLET PO SCH ×2 (08:33→08:35)
[2017-04-01] MEDS: THIAMINE 100 MG TABLET PO SCH (08:34)
[2017-04-01] MEDS: ASPIRIN 81 MG TAB.CHEW PO SCH (08:34)
[2017-04-01] MEDS: VITAMIN D3 1,000 UNIT TABLET PO SCH ×2 (08:34→21:39)
[2017-04-01] MEDS: OMEPRAZOLE 20 MG CAPSULE PO SCH (08:34)
--- NOTE | 2017-04-01 08:36 | Pulmonology Consult Note ---
History of Present Illness Patient information: Note initiated : 04/01/17 at 8:27 am Service Date, if different from initiated Date: [] Patient: Justin Broussard Jr 56 y/o M admitted on 03/29/17 for shortness of breath. 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 He had a sense of chills but denies fever. The patient indicates that he smoked for a few years but quit at a very young age. 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 He denies unusual pets plants or birds in the home. He does not consider himself to be an allergic person. He does have significant symptomatic gastroesophageal reflux disease. He denies travel outside of the [facility]. He denies known cardiac conditions. He is a vague historian and reports a stroke some years ago which she states mainly affected the left side of his face but had a full recovery in that regard. His ex- presents during the course of the interview and indicates that he can only take 2 or 3 steps trying to mow the lawn; walking around his home also leaves him significantly air hungry and short of breath. Other than hypertension the patient denies known cardiac issues. He has not experienced palpitations and he denies dependent edema or chest pain. He denies joint issues or inflammatory joint disease such as rheumatoid arthritis. He thinks he has a remote negative PPD skin test. The patient does indicate significant alcohol on a daily basis but more recently just when he gets together with his friends. Systems review is not considered reliable negative on questioning in detail fashion. On physical examination patient is a pleasant gentleman in no acute distress. Head is atraumatic and normocephalic. Eyes purulent EOMI sclera and conjunctiva clear. Neck supple carotids without bruits. Lungs significantly decreased breath sounds with fine and coarser interstitial lung sounds scattered throughout both lung figueroa more prevalent in the bases. Heart regular S1-S2 no gallop rub jugular venous distention no dependent edema. Bones joints and extremities are intact neurologic exam is nonfocal. Review of laboratory data indicates a profound interstitial fibrotic process with bronchiectasis and honeycombing. Laboratory values have only mild leukocytosis. Impression impression fibrotic lung disease possibly on the basis of intermittent aspiration reflux disease. This disease is fairly advanced and the patient is likely require oxygen therapy. Will recheck an echocardiogram if not recently performed and. Recommended intense antireflux regimen elevation of head of bed and empty stomach at bedtime. Agree with antibiotics to cover the possibility of pneumonia in his complex clinical setting. I will discuss and follow with. Thank you for the opportunity to participate in care of this pleasant gentleman. Inflammatory markers for rheumatologic pathologic conditions Medications and Allergies Home Medications Medication Instructions Recorded Confirmed Type aspirin 81 mg tablet,delayed 81 mg PO QDAY 03/28/17 03/29/17 History release furosemide 20 mg tablet 20 mg PO QDAY 03/28/17 03/29/17 History lisinopril 10 mg tablet 10 mg PO QDAY 03/28/17 03/29/17 History omeprazole 20 mg capsule,delayed 20 mg PO QDAY cap 03/28/17 03/29/17 History release Allergies Allergy/AdvReac Type Severity Reaction Status Date / Time Cyclobenzaprine Allergy Mild Hives Verified 03/30/17 09:27 naproxen Allergy Mild Hives Verified 03/30/17 09:28 Physical Examination Vital signs: Temp Pulse Resp BP Pulse Ox 98.9 F 101 H 26 H 112/73 91 04/01/17 08:00 04/01/17 04:00 04/01/17 08:00 04/01/17 08:00 04/01/17 08:00 Results - Laboratory Findings CBC and BMP: 04/01/17 05:55 04/01/17 05:55 PT/INR, D-dimer D-Dimer 1.86 ug/ml (0.00-0.40) H 03/29/17 18:20 Abnormal lab findings: Abnormal Labs 03/30/17 03/30/17 03/30/17 05:15 05:15 08:42 WBC 11.2 H RBC Hgb 13.1 L Hct 39.6 L Lymph % (Auto) Gran # Glynn # (Auto) Calcium 7.9 L Ionized Calcium Penny 1.13 L Lactate Dehydrogenase 347 H Albumin Globulin 4.1 H Albumin/Globulin Ratio 0.8 L 03/31/17 03/31/17 04/01/17 05:52 05:52 05:55 WBC 13.5 H RBC 4.24 L 4.29 L Hgb 12.1 L 12.3 L Hct 36.5 L 36.8 L Lymph % (Auto) 11.3 L Gran # 10.1 H Glynn # (Auto) 1.2 H Calcium 7.9 L Ionized Calcium Penny Lactate Dehydrogenase 324 H Albumin 3.0 L Globulin 4.1 H Albumin/Globulin Ratio 0.7 L 04/01/17 05:55 WBC RBC Hgb Hct Lymph % (Auto) Gran # Glynn # (Auto) Calcium Ionized Calcium Penny Lactate Dehydrogenase 344 H Albumin Globulin 4.0 H Albumin/Globulin Ratio 0.8 L
[2017-04-01] MEDS ORDERED: NON FORMULARY MEDICATION 1 DOSE MISCELL (Aspirin [Lo-Dose Aspirin Ec] 81 MG) PO SCH (09:00)
[2017-04-01] MEDS ORDERED: FUROSEMIDE 20 MG TABLET PO SCH (09:00)
--- NOTE | 2017-04-01 10:04 | Internal Med Progress Note ---
Medical - PN: Subj Patient information: Note initiated : 04/01/17 at 10:02 am Service Date, if different from initiated Date: [] Patient: Drew Broussard Jr 56 y/o M admitted on 03/29/17 for shortness of breath. Chief Complaint: [] Interval history: March 29, 2017: History of present illness: Mr. Bobo Hayden is a 56 year old man, whose chart indicates he has a past history of alcohol abuse, coronary disease, CHF, stroke. The patient presented to the emergency room today complaining that he had been having dizziness and severe headaches and shortness of breath for more than a year now. He says he is gotten to the point where he just cannot take it anymore. He is feeling extremely weak, whenever he tries to walk more than 15 or 20 feet. If he stops to rest, his breathing eventually gets back to normal. He has had persistent headaches, so has been taking ibuprofen 2 tablets every 4-6 hours at home. I believe he was being seen at the [facility] clinic. It looks like someone had started an evaluation back in October, and the patient says he has an upcoming appointment with our sales effectiveness manager, but he has not been seen yet In the emergency room, he was noted to have room air O2 saturations in the 70s, at rest. CT scan of his chest showed diffuse severe disease, consistent with probable IPF, with superimposed infiltrates, worrisome for a new pneumonia. The patient is admitted for treatment of same. Otherwise, he denies recent fever or chills. He does have a chronic cough that is productive of yellowish to greenish sputum, but only very small amounts. He does report chronic headaches and dizziness. He denies new eye or ear symptoms , or sore throat. He denies swollen glands, chest pain or palpitations, abdominal pain, nausea or vomiting, diarrhea or constipation, dysuria. He denies any significant changes in his weight recently. March 30: Today, the patient says he feels about the same. He feels okay at rest, but with trying to walk to the bathroom he becomes extremely short of breath. He still has a cough, productive of tiny amounts of yellowish phlegm, with some red streaks. His brother is actually here in the room with him today. He initially got up to use the bathroom early this morning and took his oxygen off. When he got back in bed, his O2 saturations red around 60%. After about 5 minutes on 4 L nasal cannula, he did return back up to 94%. When I entered the room today, he had just come back from the bathroom, while wearing his oxygen. His O2 levels are still down in the 60s at that time, and it did take about 5 minutes before he rebounded into the 90s. Otherwise, he denies fever or chills, chest pain or palpitations, abdominal pain , nausea or vomiting, diarrhea or constipation or dysuria. March 31- patient feels a lot better. pulmonology consult pending. on 4 L oxygen. no overnight fever chills nausea vomiting or concerns per medical staff. Improving cough and dyspnea. On antibiotic coverage. friends at bedside. April 01- patient is doing well. n currently 4 L oxygen. white count 13.5. pulmonology consulted. Recommends echocardiogram/oxygen therapy and antireflux regimen, continue antibiotic coverage for multifocal pneumonia. no overnight fever chills. No concerns from medical staff or patient. - Constitutional Vitals: Vital Signs Temp Pulse Resp BP Pulse Ox 98.9 F 95 H 26 H 112/73 91 04/01/17 08:00 04/01/17 07:55 04/01/17 08:00 04/01/17 08:00 04/01/17 08:00 Period Temp Pulse Resp BP Sys/Hernandez Pulse Ox Last 24 Hr 98.0 F-99.8 F 95-114 16-32 100-116/61-77 90-96 Intake and Output 03/31/17 04/01/17 04/01/17 21:59 05:59 13:59 Intake Total 1790 / 1790 350 / 350 1010 / 1010 Output Total 875 / 875 775 / 775 550 / 550 Balance 915 / 915 -425 / -425 460 / 460 Weight 168 lb Intake & Output: Intake & Output 03/31/17 04/01/17 04/01/17 21:59 05:59 13:59 Intake Total 1790 / 1790 350 / 350 1010 / 1010 Output Total 875 / 875 775 / 775 550 / 550 Balance 915 / 915 -425 / -425 460 / 460 Weight 168 lb Intake: IV 1110 / 1110 50 / 50 1010 / 1010 Zosyn 3.375 gm In 100 / 100 50 / 50 Dextrose 5% in Water 50 ml @ 100 mls/hr IV Q6H [facility] Rx#:[id number] Potassium Chloride 20 Meq 1010 / 1010 1010 / 1010 In Sodium Chloride 0.45% 1,000 ml @ 100 mls/hr IV .Q10H6M [facility] Rx#: [id number] Oral 680 / 680 300 / 300 Output: Void Amount 875 / 875 775 / 775 550 / 550 Other: Meal Dinner Percent of Meal Consumed 100% # Voids 1 General appearance: no acute distress Exam: alert oriented on 4 L oxygen No anxiety nondistended abdomen Medical - PN: Obj Da - Labs CBC & Chem 7: 04/01/17 05:55 04/01/17 05:55 Labs: Abnormal Lab Results 04/01/17 04/01/17 03/31/17 05:55 05:55 05:52 WBC 13.5 H RBC 4.29 L Hgb 12.3 L Hct 36.8 L Lymph % (Auto) 11.3 L Gran # 10.1 H Denali # (Auto) 1.2 H Calcium 7.9 L Ionized Calcium Penny Lactate Dehydrogenase 344 H 324 H Albumin 3.0 L Globulin 4.0 H 4.1 H Albumin/Globulin Ratio 0.8 L 0.7 L 03/31/17 03/30/17 03/30/17 05:52 08:42 05:15 WBC RBC 4.24 L Hgb 12.1 L Hct 36.5 L Lymph % (Auto) Gran # Denali # (Auto) Calcium 7.9 L Ionized Calcium Penny 1.13 L Lactate Dehydrogenase 347 H Albumin Globulin 4.1 H Albumin/Globulin Ratio 0.8 L 03/30/17 05:15 WBC 11.2 H RBC Hgb 13.1 L Hct 39.6 L Lymph % (Auto) Gran # Denali # (Auto) Calcium Ionized Calcium Penny Lactate Dehydrogenase Albumin Globulin Albumin/Globulin Ratio Meds: Medications Acetaminophen (Tylenol) 650 mg PO Q6HP PRN PRN Reason: PAIN/FEVER > 101 Hydrocodone Bitart/Acetaminophen (Tappan 5/325mg) 1 tab PO Q4HP PRN PRN Reason: Pain Last Admin: 03/30/17 05:30 Dose: 1 tab Albuterol Sulfate (Ventolin) 2.5 mg NEB Q2HP PRN PRN Reason: Shortness Of Breath Last Admin: 03/30/17 19:35 Dose: 2.5 mg Albuterol/Ipratropium (Duoneb) 3 ml NEB Q6HRT [facility] Last Admin: 04/01/17 07:55 Dose: 3 ml Aspirin (Aspirin) 81 mg PO DAILY [facility] Last Admin: 04/01/17 08:34 Dose: 81 mg Atorvastatin Calcium (Lipitor) 20 mg PO HS [facility] Last Admin: 03/31/17 20:35 Dose: 20 mg Budesonide (Pulmicort) 0.5 mg NEB Q12 [facility] Last Admin: 04/01/17 07:55 Dose: 0.5 mg Calcium Carbonate/Glycine (Tums) 500 mg CHEWED BID [facility] Last Admin: 04/01/17 08:33 Dose: 500 mg Clonidine HCl (Catapres) 0.1 mg PO Q4HP PRN PRN Reason: Alcohol Withdrawal Last Admin: 03/31/17 08:22 Dose: 0.1 mg Docusate Sodium (Colace) 100 mg PO BID PRN PRN Reason: Constipation Folic Acid (Folic Acid) 1 mg PO DAILY [facility] Last Admin: 04/01/17 08:33 Dose: 1 mg Furosemide (Lasix) 20 mg PO DAILY [facility] Last Admin: 04/01/17 08:33 Dose: 20 mg Furosemide (Lasix) 20 mg PO QDAY [facility] Last Admin: 04/01/17 08:35 Dose: 20 mg Heparin Sodium (Porcine) (Heparin) 5,000 unit SQ Q12 [facility] Last Admin: 04/01/17 08:33 Dose: 5,000 unit Potassium Chloride 20 meq/ (Sodium Chloride) 1,010 mls @ 100 mls/hr IV .Q10H6M [facility] Last Admin: 04/01/17 08:08 Dose: 100 mls/hr Piperacillin Sod/Tazobactam (Sod 3.375 gm/ Dextrose) 50 mls @ 100 mls/hr IV Q6H [facility] Last Admin: 04/01/17 08:34 Dose: 100 mls/hr Iron Carb/Multivit/Television Agent/Folic Acid (Multivitamin W/Minerals) 1 tab PO DAILY [facility] Last Admin: 04/01/17 08:33 Dose: 1 tab Lisinopril (Zestril) 10 mg PO DAILY [facility] Last Admin: 04/01/17 08:33 Dose: 10 mg Lisinopril (Zestril) 10 mg PO QDAY [facility] Last Admin: 04/01/17 08:35 Dose: 10 mg Lorazepam (Ativan) 1 mg IV Q4HP PRN; Protocol PRN Reason: Alcohol Withdrawal Magnesium Hydroxide (Milk Of Magnesia) 30 ml PO DAILYP PRN PRN Reason: Constipation Naloxone HCl (Narcan) 0.1 mg IV Q2MIN PRN PRN Reason: Opiate Reversal Omeprazole (Prilosec) 20 mg PO QAMAC [facility] Last Admin: 04/01/17 08:34 Dose: Not Given Ondansetron HCl (Zofran) 4 mg IV Q6HP PRN PRN Reason: Nausea And Vomiting Pantoprazole [facility]ix) [facility] Last Admin: 04/01/17 08:08 Dose: 40 mg Sodium Chloride (Saline Flush) 10 ml IV Q8 [facility] Last Admin: 04/01/17 06:10 Dose: 10 ml Thiamine HCl (Vitamin B1) 100 mg PO QDAY [facility] Last Admin: 04/01/17 08:34 Dose: 100 mg Vitamin D (Vitamin D3) 1,000 unit PO BID [facility] Last Admin: 04/01/17 08:34 Dose: 1,000 unit Medical - PN: A/P - Time Spent With Patient Total time spent is greater than 50% in coordination of care (as documented) at patient's floor/unit and/or counseling patient: 15 - 24 minutes - Narrative A/P Narrative: * hypoxic respiratory insufficiency-Secondary to primary fibrosis. Pulmonology consulted * Multifocal pneumonia-on antibiotic coverage including Zosyn/ azithromycin.Clinical improvement noted * advance pulmonary fibrosis- oncology consulted. Continue supplemental oxygen/ antireflux regimen. Echo pending * Sepsis secondary to multifocal pneumonia-continue close monitoring. White count 3000 * prophylaxis subcutaneous heparin * Full CODE STATUS * Alcohol dependence-monitor for withdrawal * History of CAD/CHF-continue home meds * History of hypertension continue GABRIEL inhibitor * History of stroke continue aspirin and statin Plan * Antibiotic coverage to continue * echocardiogram * pre-existing medical condition management as above * physical therapy Medical - PN: Qual - VTE Deep Vein Thrombosis/Pulmonary Embolism Present on Admission: No
--- NOTE | 2017-04-01 11:36 | XRay Report ---
CLINICAL INFORMATION: Severe lung disease. Possible aspiration pneumonia TECHNIQUE: Routine air contrast barium swallow COMPARISON: CT scan of the chest dated 03/29/2017 FINDINGS: Abnormal esophageal peristalsis. There are multiple tertiary contractions. 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 No esophageal strictures. No esophageal mass. No hiatal hernia Cervical esophagus is negative. No cricopharyngeal dysmotility. No Zenker's diverticulum. There is pooling in the valleculae. No airway penetration or aspiration observed. There is gastroesophageal reflux to the mid to upper thoracic esophagus. IMPRESSION: 1. Abnormal esophageal peristalsis for age. Tertiary contractions demonstrated as above 2. Gastroesophageal reflux 3. No esophageal strictures. No esophageal mass Interpreted and Authenticated by: Jeffrey Schrader 04/01/17
[2017-04-01] MEDS ORDERED: ACETAMINOPHEN 1,000 MG/100 ML BOTTLE IV PRN (17:31)
[2017-04-01] MEDS: ATORVASTATIN 20 MG TABLET PO SCH (21:39)
[2017-04-01] MEDS: HYDROcodone/APAP 5/325MG TABLET PO PRN (23:56)
[2017-04-02] MEDS: PIPERACILLIN SODIUM/TAZOBACTAM 3.375 GM in DEXTROSE 5% IN WATER 50 ML IV SCH ×5 (01:28→23:36)
[2017-04-02] MEDS: IPRATROPIUM/ALBUTEROL 3 ML AMPUL.NEB NEB SCH ×5 (01:28→23:07)
[2017-04-02] MEDS: 0.9 % SODIUM CHLORIDE 10 ML SYRINGE IV SCH ×3 (04:57→21:19)
[2017-04-02 06:02] LABS: Basophils # (Auto) 0 K/mcL (0.0-0.3); Basophils % (Auto) 0.3 % (0.0-2.0); Eosinophils # (Auto) 0.8 K/mcL (0.0-0.7); Eosinophils % (Auto) 6.3 % (0.0-7.0); Granulocytes % (Auto) 72.3 % (38.0-78.0); Lymphocytes # (Auto) 1.8 K/mcL (1.5-4.8); Lymphocytes % (Auto) 13.5 % (15.5-49.0); Mean Corpuscular HGB Conc 33.3 g/dL (31.0-36.0); Mean Corpuscular Hemoglobin 28.7 pg (26.0-34.0); Monocytes % (Auto) 7.6 % (1.0-12.0); Platelet Count 341 K/mcL (140-440); RBC 4.12 M/mcL (4.50-5.90)
[2017-04-02 06:23] LABS: ALT/SGPT 10 U/l (0-40); Albumin 3.1 gm/dL (3.2-5.2); Albumin/Globulin Ratio 0.7 (1.0-2.3); Alkaline Phosphatase 109 U/L (39-117); Bilirubin,Direct 0.3 mg/dL (0.0-0.3); Blood Urea Nitrogen 7 mg/dl (6-20); Gamma Glutamyl Transpeptidase 56 U/L (8-61); Magnesium 2.1 mg/dL (1.6-2.5); Uric Acid 3.6 mg/dL (2.5-8.0)
[2017-04-02 06:55] LABS: Rheumatoid Factor 108 IU/ml (0-14)
[2017-04-02] MEDS: OMEPRAZOLE 20 MG CAPSULE PO SCH (07:15)
[2017-04-02] MEDS: PANTOPRAZOLE 40 MG TABLET PO SCH (07:15)
[2017-04-02] MEDS: BUDESONIDE 0.5 MG/2 ML AMPUL.NEB NEB SCH ×2 (07:31→19:10)
--- NOTE | 2017-04-02 08:44 | Pulmonology Progress Note ---
Subjective Patient information: Note initiated : 04/02/17 at 8:37 am Service Date, if different from initiated Date: [] Patient: Drew Broussard Jr 56 y/o M admitted on 03/29/17 for shortness of breath. Chief Complaint: [SOB The patient reports a reasonable nights sleep. Ex- in the room . She indicates he has been having greater or lesser problems with GERD for a long time. Less sputum and purulence, Esophgram demonstrated profound issues with reflux and risk for aspiration. Lungs: crackles bases continue finer and coarser Heart Reg S1 S2 W/O M G R JVD or edema. Abd soft BSP decreased. Labs stable IMP: Interstitial fibrosis secondary to reflux and aspiration VS other. Plan continue support as per orders . Instructed Pt,. and Ex in acid textile supervisor, elevate HOB, EMPTY STOMACH at recline time and wt loss to help this problem. Aiden Burr MD Pulmonary Jewel Setter] Objective Vital Signs Temp Pulse Pulse Resp BP Pulse Ox 04/02/17 07:54 98.8 F 108 H 30 H 110/70 88 L 04/02/17 07:39 112 H 16 94 04/02/17 04:00 98.0 F 103 H 32 H 103/68 92 04/02/17 00:00 98.2 F 101 H 32 H 86/53 91 04/01/17 20:07 100 H 16 04/01/17 20:01 92 04/01/17 20:00 91 04/01/17 19:50 98.3 F 102 H 36 H 99/62 91 04/01/17 19:24 97.9 F 103 H 32 H 92 04/01/17 18:25 101.4 F H 04/01/17 18:09 101.4 F H 04/01/17 17:30 102.7 F H 32 H 92 04/01/17 16:55 102.7 F H 04/01/17 16:10 101.4 F H 04/01/17 16:00 101.2 F H 32 H 152/79 93 04/01/17 14:41 92 04/01/17 13:34 109 H 16 04/01/17 12:00 97.7 F 24 H 97/66 92 Intake and Output 04/01/17 04/02/17 04/02/17 21:59 05:59 13:59 Intake Total 1110 / 1110 710 / 710 Output Total 950 / 950 800 / 800 300 / 300 Balance 160 / 160 -90 / -90 -300 / -300 Intake: IV 1110 / 1110 Zosyn 3.375 gm In 100 / 100 Dextrose 5% in Water 50 ml @ 100 mls/hr IV Q6H [facility] Rx#:[id number] Potassium Chloride 20 Meq 1010 / 1010 In Sodium Chloride 0.45% 1,000 ml @ 100 mls/hr IV .Q10H6M [facility] Rx#: [id number] Oral 710 / 710 Output: Void Amount 950 / 950 800 / 800 300 / 300 Other: Meal Lunch Dinner Percent of Meal Consumed 75% 75% Feeding Ability Independent Assist with Tray Set Up Weight 168 lb Intake & Output: Intake & Output 04/01/17 04/02/17 04/02/17 21:59 05:59 13:59 Intake Total 1110 / 1110 710 / 710 Output Total 950 / 950 800 / 800 300 / 300 Balance 160 / 160 -90 / -90 -300 / -300 Weight 168 lb Intake: IV 1110 / 1110 Zosyn 3.375 gm In 100 / 100 Dextrose 5% in Water 50 ml @ 100 mls/hr IV Q6H [facility] Rx#:[id number] Potassium Chloride 20 Meq 1010 / 1010 In Sodium Chloride 0.45% 1,000 ml @ 100 mls/hr IV .Q10H6M [facility] Rx#: [id number] Oral 710 / 710 Output: Void Amount 950 / 950 800 / 800 300 / 300 Other: Meal Lunch Dinner Percent of Meal Consumed 75% 75% Feeding Ability Independent Assist with Tray Set Up CBC and BMP: 04/02/17 04:25 04/02/17 04:25 ABG, PT/INR, D-dimer: PT/INR, D-dimer D-Dimer 1.86 ug/ml (0.00-0.40) H 03/29/17 18:20 Abnormal lab findings: Abnormal Labs 03/30/17 03/30/17 03/30/17 05:15 05:15 08:42 WBC 11.2 H RBC Hgb 13.1 L Hct 39.6 L Lymph % (Auto) Gran # White # (Auto) Eos # (Auto) Calcium 7.9 L Ionized Calcium Penny 1.13 L Lactate Dehydrogenase 347 H Albumin Globulin 4.1 H Albumin/Globulin Ratio 0.8 L Rheumatoid Factor 03/31/17 03/31/17 04/01/17 05:52 05:52 05:55 WBC 13.5 H RBC 4.24 L 4.29 L Hgb 12.1 L 12.3 L Hct 36.5 L 36.8 L Lymph % (Auto) 11.3 L Gran # 10.1 H White # (Auto) 1.2 H Eos # (Auto) Calcium 7.9 L Ionized Calcium Penny Lactate Dehydrogenase 324 H Albumin 3.0 L Globulin 4.1 H Albumin/Globulin Ratio 0.7 L Rheumatoid Factor 04/01/17 04/02/17 04/02/17 05:55 04:19 04:25 WBC 13.0 H RBC 4.12 L Hgb 11.8 L Hct 35.4 L Lymph % (Auto) 13.5 L Gran # 9.4 H White # (Auto) 1.0 H Eos # (Auto) 0.8 H Calcium Ionized Calcium Penny Lactate Dehydrogenase 344 H Albumin Globulin 4.0 H Albumin/Globulin Ratio 0.8 L Rheumatoid Factor 108 H 04/02/17 04:25 WBC RBC Hgb Hct Lymph % (Auto) Gran # White # (Auto) Eos # (Auto) Calcium 8.2 L Ionized Calcium Penny Lactate Dehydrogenase 371 H Albumin 3.1 L Globulin 4.3 H Albumin/Globulin Ratio 0.7 L Rheumatoid Factor
[2017-04-02] MEDS: CALCIUM CARBONATE 500 MG TAB.CHEW CHEWED SCH ×2 (08:55→20:36)
[2017-04-02] MEDS: THIAMINE 100 MG TABLET PO SCH (08:55)
[2017-04-02] MEDS: HEPARIN 5,000 UNIT/ML VIAL SQ SCH ×2 (08:55→20:36)
[2017-04-02] MEDS: MULTIVIT,THER IRON,CA,FA & MIN 1 TABLET PO SCH (08:56)
[2017-04-02] MEDS: FOLIC ACID 1 MG TABLET PO SCH (08:56)
[2017-04-02] MEDS: ASPIRIN 81 MG TAB.CHEW PO SCH (08:56)
[2017-04-02] MEDS: VITAMIN D3 1,000 UNIT TABLET PO SCH ×2 (08:56→20:36)
[2017-04-02] MEDS: LISINOPRIL 10 MG TABLET PO SCH ×2 (08:56→08:57)
[2017-04-02] MEDS: FUROSEMIDE 20 MG TABLET PO SCH (08:57)
--- NOTE | 2017-04-02 09:24 | Internal Med Progress Note ---
Medical - PN: Subj Patient information: Note initiated : 04/02/17 at 9:22 am Service Date, if different from initiated Date: [] Patient: Drew Broussard Jr 56 y/o M admitted on 03/29/17 for shortness of breath. Chief Complaint: [] Interval history: March 29, 2017: History of present illness: Mr. Bobo Hayden is a 56 year old man, whose chart indicates he has a past history of alcohol abuse, coronary disease, CHF, stroke. The patient presented to the emergency room today complaining that he had been having dizziness and severe headaches and shortness of breath for more than a year now. He says he is gotten to the point where he just cannot take it anymore. He is feeling extremely weak, whenever he tries to walk more than 15 or 20 feet. If he stops to rest, his breathing eventually gets back to normal. He has had persistent headaches, so has been taking ibuprofen 2 tablets every 4-6 hours at home. I believe he was being seen at the [facility] clinic. It looks like someone had started an evaluation back in October, and the patient says he has an upcoming appointment with our head of data, but he has not been seen yet In the emergency room, he was noted to have room air O2 saturations in the 70s, at rest. CT scan of his chest showed diffuse severe disease, consistent with probable IPF, with superimposed infiltrates, worrisome for a new pneumonia. The patient is admitted for treatment of same. Otherwise, he denies recent fever or chills. He does have a chronic cough that is productive of yellowish to greenish sputum, but only very small amounts. He does report chronic headaches and dizziness. He denies new eye or ear symptoms , or sore throat. He denies swollen glands, chest pain or palpitations, abdominal pain, nausea or vomiting, diarrhea or constipation, dysuria. He denies any significant changes in his weight recently. March 30: Today, the patient says he feels about the same. He feels okay at rest, but with trying to walk to the bathroom he becomes extremely short of breath. He still has a cough, productive of tiny amounts of yellowish phlegm, with some red streaks. His brother is actually here in the room with him today. He initially got up to use the bathroom early this morning and took his oxygen off. When he got back in bed, his O2 saturations red around 60%. After about 5 minutes on 4 L nasal cannula, he did return back up to 94%. When I entered the room today, he had just come back from the bathroom, while wearing his oxygen. His O2 levels are still down in the 60s at that time, and it did take about 5 minutes before he rebounded into the 90s. Otherwise, he denies fever or chills, chest pain or palpitations, abdominal pain , nausea or vomiting, diarrhea or constipation or dysuria. March 31- patient feels a lot better. pulmonology consult pending. on 4 L oxygen. no overnight fever chills nausea vomiting or concerns per medical staff. Improving cough and dyspnea. On antibiotic coverage. friends at bedside. April 01- patient is doing well. n currently 4 L oxygen. white count 13.5. pulmonology consulted. Recommends echocardiogram/oxygen therapy and antireflux regimen, continue antibiotic coverage for multifocal pneumonia. no overnight fever chills. No concerns from medical staff or patient. April 02- patient had a rough night with a fever of over 102. Blood cultures drawn. White count 13,000. worsening hypoxia requiring 7 L oxygen. cultures negative to date. patient desaturates with minimal effort. Pulmonology on board. Transfer to telemetry in light of significant hypoxic respiratory failure for close monitoring of hemodynamics. Rheumatoid/MARGARITA panel ordered by pulmonology. rheumatoid factor 108. continue antibiotic coverage. Currently afebrile - Constitutional Vitals: Vital Signs Temp Pulse Resp BP Pulse Ox 98.8 F 108 H 30 H 110/70 88 L 04/02/17 07:54 04/02/17 07:54 04/02/17 07:54 04/02/17 07:54 04/02/17 07:54 Period Temp Pulse Resp BP Sys/Hernandez Pulse Ox Last 24 Hr 97.7 F-102.7 F 100-112 16-36 86-152/53-79 88-94 Intake and Output 04/01/17 04/02/17 04/02/17 21:59 05:59 13:59 Intake Total 1110 / 1110 760 / 760 Output Total 950 / 950 800 / 800 300 / 300 Balance 160 / 160 -40 / -40 -300 / -300 Weight 168 lb Intake & Output: Intake & Output 07/17/17 07/18/17 07/18/17 21:59 05:59 13:59 Intake Total 1110 / 1110 760 / 760 Output Total 950 / 950 800 / 800 300 / 300 Balance 160 / 160 -40 / -40 -300 / -300 Weight 168 lb Intake: IV 1110 / 1110 50 / 50 Zosyn 3.375 gm In 100 / 100 50 / 50 Dextrose 5% in Water 50 ml @ 100 mls/hr IV Q6H [facility] Rx#:[id number] Potassium Chloride 20 Meq 1010 / 1010 In Sodium Chloride 0.45% 1,000 ml @ 100 mls/hr IV .Q10H6M LOGAN Rx#: [id number] Oral 710 / 710 Output: Void Amount 950 / 950 800 / 800 300 / 300 Other: Meal Lunch Dinner Percent of Meal Consumed 75% 75% Feeding Ability Independent Assist with Tray Set Up General appearance: mild distress Exam: short of breath and labored Bilateral crackles Nondistended abdomen Minimally anxious Medical - PN: Obj Da - Labs CBC & Chem 7: 04/02/17 04:25 04/02/17 04:25 Labs: Abnormal Lab Results 04/02/17 04/02/17 04/02/17 04:25 04:25 04:19 WBC 13.0 H RBC 4.12 L Hgb 11.8 L Hct 35.4 L Lymph % (Auto) 13.5 L Gran # 9.4 H [place] # (Auto) 1.0 H Eos # (Auto) 0.8 H Calcium 8.2 L Ionized Calcium Penny Lactate Dehydrogenase 371 H Albumin 3.1 L Albumin (PEP) Globulin 4.3 H Globulin (PEP) Albumin/Globulin Ratio 0.7 L Albumin/Globulin (PEP) Beta Globulins Gamma Globulins Rheumatoid Factor 108 H 04/01/17 04/01/17 03/31/17 05:55 05:55 05:52 WBC 13.5 H RBC 4.29 L Hgb 12.3 L Hct 36.8 L Lymph % (Auto) 11.3 L Gran # 10.1 H [place] # (Auto) 1.2 H Eos # (Auto) Calcium 7.9 L Ionized Calcium Penny Lactate Dehydrogenase 344 H 324 H Albumin 3.0 L Albumin (PEP) Globulin 4.0 H 4.1 H Globulin (PEP) Albumin/Globulin Ratio 0.8 L 0.7 L Albumin/Globulin (PEP) Beta Globulins Gamma Globulins Rheumatoid Factor 03/31/17 03/30/17 03/30/17 05:52 14:11 08:42 WBC RBC 4.24 L Hgb 12.1 L Hct 36.5 L Lymph % (Auto) Gran # [place] # (Auto) Eos # (Auto) Calcium Ionized Calcium Penny 1.13 L Lactate Dehydrogenase Albumin Albumin (PEP) 2.80 L Globulin Globulin (PEP) 4.5 H Albumin/Globulin Ratio Albumin/Globulin (PEP) 0.6 L Beta Globulins 1.22 H Gamma Globulins 1.97 H Rheumatoid Factor Meds: Medications Acetaminophen (Tylenol) 650 mg PO Q6HP PRN PRN Reason: PAIN/FEVER > 101 Last Admin: 04/01/17 16:10 Dose: 650 mg Hydrocodone Bitart/Acetaminophen ([place] 5/325mg) 1 tab PO Q4HP PRN PRN Reason: Pain Last Admin: 04/01/17 23:56 Dose: 1 tab Albuterol Sulfate (Ventolin) 2.5 mg NEB Q2HP PRN PRN Reason: Shortness Of Breath Last Admin: 03/30/17 19:35 Dose: 2.5 mg Albuterol/Ipratropium (Duoneb) 3 ml NEB Q6HRT [facility] Last Admin: 04/02/17 07:31 Dose: 3 ml Aspirin (Aspirin) 81 mg PO DAILY [facility] Last Admin: 04/02/17 08:56 Dose: 81 mg Atorvastatin Calcium (Lipitor) 20 mg PO HS [facility] Last Admin: 04/01/17 21:39 Dose: 20 mg Budesonide (Pulmicort) 0.5 mg NEB Q12 [facility] Last Admin: 04/02/17 07:31 Dose: 0.5 mg Calcium Carbonate/Glycine (Tums) 500 mg CHEWED BID [facility] Last Admin: 04/02/17 08:55 Dose: 500 mg Clonidine HCl (Catapres) 0.1 mg PO Q4HP PRN PRN Reason: Alcohol Withdrawal Last Admin: 03/31/17 08:22 Dose: 0.1 mg Docusate Sodium (Colace) 100 mg PO BID PRN PRN Reason: Constipation Folic Acid (Folic Acid) 1 mg PO DAILY [facility] Last Admin: 04/02/17 08:56 Dose: 1 mg Furosemide (Lasix) 20 mg PO DAILY [facility] Last Admin: 04/02/17 08:57 Dose: 20 mg Heparin Sodium (Porcine) (Heparin) 5,000 unit SQ Q12 [facility] Last Admin: 04/02/17 08:55 Dose: 5,000 unit Piperacillin Sod/Tazobactam (Sod 3.375 gm/ Dextrose) 50 mls @ 100 mls/hr IV Q6H [facility] Last Admin: 04/02/17 08:55 Dose: 100 mls/hr Acetaminophen (Ofirmev) 1,000 mg in 100 mls @ 200 mls/hr IV Q6HP PRN PRN Reason: PAIN/FEVER > 101 Iron Carb/Multivit/[place]/Folic Acid (Multivitamin W/Minerals) 1 tab PO DAILY [facility] Last Admin: 04/02/17 08:56 Dose: 1 tab Lisinopril (Zestril) 10 mg PO DAILY [facility] Last Admin: 04/02/17 08:56 Dose: 10 mg Lisinopril (Zestril) 10 mg PO QDAY [facility] Last Admin: 04/02/17 08:57 Dose: Not Given Lorazepam (Ativan) 1 mg IV Q4HP PRN; Protocol PRN Reason: Alcohol Withdrawal Magnesium Hydroxide (Milk Of Magnesia) 30 ml PO DAILYP PRN PRN Reason: Constipation Naloxone HCl (Narcan) 0.1 mg IV Q2MIN PRN PRN Reason: Opiate Reversal Omeprazole (Prilosec) 20 mg PO QAMAC [facility] Last Admin: 04/02/17 07:15 Dose: 20 mg Ondansetron HCl (Zofran) 4 mg IV Q6HP PRN PRN Reason: Nausea And Vomiting Pantoprazole Sodium (Protonix) 40 mg PO QAMAC [facility] Last Admin: 04/02/17 07:15 Dose: 40 mg Sodium Chloride (Saline Flush) 10 ml IV Q8 [facility] Last Admin: 04/02/17 04:57 Dose: 10 ml Thiamine HCl (Vitamin B1) 100 mg PO QDAY [facility] Last Admin: 04/02/17 08:55 Dose: 100 mg Vitamin D (Vitamin D3) 1,000 unit PO BID [facility] Last Admin: 04/02/17 08:56 Dose: 1,000 unit Medical - PN: A/P - Time Spent With Patient Total time spent is greater than 50% in coordination of care (as documented) at patient's floor/unit and/or counseling patient: 25 - 35 minutes - Narrative A/P Narrative: * hypoxic respiratory failure now on 7 L oxygen-Secondary to primary fibrosis nd superimposed pneumonia. Pulmonology on board. Continue antibiotic coverage/ supplemental oxygen. Transfer to telemetry for close hemodynamic monitoring * Multifocal pneumonia-on antibiotic coverage including Zosyn/ azithromycin.clinically worsening * Advance pulmonary fibrosis-pulmonology on board. MARGARITA panel pending. Rheumatoid factor 108. Continue supplemental oxygen/antireflux regimen. Echo pending * Sepsis secondary to multifocal pneumonia- WBC 13,000 * Alcohol dependence-monitor for withdrawal * History of CAD/CHF-continue home meds * History of hypertension continue GABRIEL inhibitor * History of stroke continue aspirin and statin * prophylaxis subcutaneous heparin * Full CODE STATUS Plan * continue antibiotic coverage * transfer to telemetry for close hemodynamic monitoring * Await further pulmonology recommendations * echocardiogram awaited * pre-existing medical condition management as above Medical - PN: Qual - VTE Deep Vein Thrombosis/Pulmonary Embolism Present on Admission: No
[2017-04-02] MEDS ORDERED: ALBUTEROL SULFATE 2.5 MG/3 ML NEBULIZER NEB PRN (10:02)
[2017-04-02] MEDS ORDERED: DOCUSATE SODIUM 100 MG CAPSULE PO PRN (10:02)
[2017-04-02] MEDS ORDERED: ACETAMINOPHEN 1,000 MG/100 ML BOTTLE IV PRN (10:02)
[2017-04-02] MEDS ORDERED: ONDANSETRON 4 MG/2 ML VIAL IV PRN (10:02)
[2017-04-02] MEDS ORDERED: cloNIDine HCL 0.1 MG TABLET PO PRN (10:02)
[2017-04-02] MEDS ORDERED: NALOXONE HCL 0.4 MG/ML VIAL IV PRN (10:02)
[2017-04-02] MEDS ORDERED: ACETAMINOPHEN 325 MG TABLET PO PRN (10:02)
[2017-04-02] MEDS ORDERED: MAGNESIUM HYDROXIDE 30 ML ORAL.SUSP PO PRN (10:02)
--- NOTE | 2017-04-02 10:28 | XRay Report ---
CLINICAL INFORMATION: Worsening hypoxia. TECHNIQUE: AP portable upright chest x-ray COMPARISON: Previous examinations dated 03/30/2017 and 01/01/2017 FINDINGS: Persistent cardiomegaly. Bilateral diffuse pulmonary parenchymal infiltrates are significantly worse since 01/01/2017. Infiltrates appear essentially stable or slightly worse since 03/30/2017. Appearance remains consistent with severe underlying lung disease and superimposed pneumonia IMPRESSION: Severe diffuse pulmonary parenchymal infiltrates, these may be slightly worse than on 03/30/2017 Interpreted and Authenticated by: Jefrfey Schrader 04/02/17
[2017-04-02] MEDS ORDERED: IPRATROPIUM/ALBUTEROL 3 ML AMPUL.NEB NEB SCH (13:00)
[2017-04-02] MEDS ORDERED: VANCOMYCIN PER PHARMACY IV SCH (17:01)
[2017-04-02] MEDS ORDERED: methylPREDNISolone SOD SUCC 125 MG/2 ML VIAL IV ONE (17:41)
[2017-04-02] MEDS ORDERED: PANTOPRAZOLE 40 MG VIAL IV ONE (17:44)
--- NOTE | 2017-04-02 18:10 | Event Note ---
Pt noted to be hypoxic with minimal movement, getting up to bed lead to desaturations. CXR this AM was worse than before. He still has low grade temp WBC elevated and is on zosyn. pulmonary following, with ILD as possible diagnosis, RA factor positive. ABG shows Ph 7.45/41/57 on 9L oxygen, pt tachypenic to RR 35-40, Will place on bipap to see if this helps with oxygenation. Duonebs swichted to q 4 hrs. BP is soft, clinically does not appear to be fluid overloaded, no pedal edema, will hold off on lasix for now. ADD vancomycin for HCAP coverage Given RA Factor positive and ILD diagnosis, progressive worsening of pulmonary function, start on steroids, 125mg today and 60mg from AM, will discuss with pulm regarding need for continued use.
[2017-04-02] MEDS: VANCOMYCIN 1,000 MG in 0.9 % SODIUM CHLORIDE 250 ML IV SCH (19:08)
[2017-04-02] MEDS: ATORVASTATIN 20 MG TABLET PO SCH (20:36)
[2017-04-02] MEDS: HYDROcodone/APAP 5/325MG TABLET PO PRN (21:19)
[2017-04-02] MEDS: LORazepam 2 MG/ML VIAL IV PRN (23:36)
[2017-04-03] MEDS: IPRATROPIUM/ALBUTEROL 3 ML AMPUL.NEB NEB SCH ×6 (02:45→23:07)
[2017-04-03] MEDS: PIPERACILLIN SODIUM/TAZOBACTAM 3.375 GM in DEXTROSE 5% IN WATER 50 ML IV SCH ×4 (05:10→23:08)
[2017-04-03] MEDS: 0.9 % SODIUM CHLORIDE 10 ML SYRINGE IV SCH ×3 (05:10→22:25)
[2017-04-03] MEDS: VANCOMYCIN 1,000 MG in 0.9 % SODIUM CHLORIDE 250 ML IV SCH ×2 (05:44→17:24)
[2017-04-03 06:04] LABS: Basophils # (Auto) 0 K/mcL (0.0-0.3); Basophils % (Auto) 0.1 % (0.0-2.0); Eosinophils # (Auto) 0.1 K/mcL (0.0-0.7); Eosinophils % (Auto) 0.6 % (0.0-7.0); Granulocytes % (Auto) 94.1 % (38.0-78.0); Lymphocytes # (Auto) 0.4 K/mcL (1.5-4.8); Lymphocytes % (Auto) 4.3 % (15.5-49.0); Mean Cell Volume 86.6 fL (80.0-100.0); Mean Corpuscular Hemoglobin 28.6 pg (26.0-34.0); Monocytes # (Auto) 0.1 K/mcL (0.1-0.9); Monocytes % (Auto) 0.9 % (1.0-12.0); Platelet Count 387 K/mcL (140-440); RBC 4.41 M/mcL (4.50-5.90); Red Cell Distribution Width 13.3 % (11.5-14.5)
[2017-04-03 06:39] LABS: Procalcitonin 0.19 ng/mL (<0.10)
[2017-04-03 06:52] LABS: ALT/SGPT 12 U/l (0-40); Albumin 3.2 gm/dL (3.2-5.2); Albumin/Globulin Ratio 0.7 (1.0-2.3); Alkaline Phosphatase 133 U/L (39-117); Bilirubin,Direct < 0.2 mg/dL (0.0-0.3); Blood Urea Nitrogen 14 mg/dl (6-20); C-Reactive Protein 19.5 mg/dl (0.0-0.8); Gamma Glutamyl Transpeptidase 73 U/L (8-61); Magnesium 2.6 mg/dL (1.6-2.5); Uric Acid 5.2 mg/dL (2.5-8.0)
[2017-04-03] MEDS: BUDESONIDE 0.5 MG/2 ML AMPUL.NEB NEB SCH ×2 (07:06→19:20)
[2017-04-03] MEDS: PANTOPRAZOLE 40 MG TABLET PO SCH (07:20)
[2017-04-03] MEDS: FOLIC ACID 1 MG TABLET PO SCH (07:32)
[2017-04-03] MEDS: CALCIUM CARBONATE 500 MG TAB.CHEW CHEWED SCH ×2 (07:32→20:37)
[2017-04-03] MEDS: LISINOPRIL 10 MG TABLET PO SCH (07:33)
[2017-04-03] MEDS: HEPARIN 5,000 UNIT/ML VIAL SQ SCH ×2 (07:33→20:37)
[2017-04-03] MEDS: ASPIRIN 81 MG TAB.CHEW PO SCH (07:34)
[2017-04-03] MEDS: MULTIVIT,THER IRON,CA,FA & MIN 1 TABLET PO SCH (07:37)
[2017-04-03] MEDS: HYDROcodone/APAP 5/325MG TABLET PO PRN ×2 (07:49→20:38)
[2017-04-03] MEDS: VITAMIN D3 1,000 UNIT TABLET PO SCH ×2 (07:50→20:37)
[2017-04-03] MEDS ORDERED: predniSONE 20 MG TABLET PO SCH (08:00)
--- NOTE | 2017-04-03 08:09 | Internal Med Progress Note ---
Medical - PN: Subj Patient information: Note initiated : 04/03/17 at 8:06 am Service Date, if different from initiated Date: [] Patient: Drew Broussard Jr 56 y/o M admitted on 03/29/17 for shortness of breath. Chief Complaint: [] Interval history: March 29, 2017: History of present illness: Mr. Bobo Hayden is a 56 year old man, whose chart indicates he has a past history of alcohol abuse, coronary disease, CHF, stroke. The patient presented to the emergency room today complaining that he had been having dizziness and severe headaches and shortness of breath for more than a year now. He says he is gotten to the point where he just cannot take it anymore. He is feeling extremely weak, whenever he tries to walk more than 15 or 20 feet. If he stops to rest, his breathing eventually gets back to normal. He has had persistent headaches, so has been taking ibuprofen 2 tablets every 4-6 hours at home. I believe he was being seen at the [facility] clinic. It looks like someone had started an evaluation back in October, and the patient says he has an upcoming appointment with our adhesion tester, but he has not been seen yet In the emergency room, he was noted to have room air O2 saturations in the 70s, at rest. CT scan of his chest showed diffuse severe disease, consistent with probable IPF, with superimposed infiltrates, worrisome for a new pneumonia. The patient is admitted for treatment of same. Otherwise, he denies recent fever or chills. He does have a chronic cough that is productive of yellowish to greenish sputum, but only very small amounts. He does report chronic headaches and dizziness. He denies new eye or ear symptoms , or sore throat. He denies swollen glands, chest pain or palpitations, abdominal pain, nausea or vomiting, diarrhea or constipation, dysuria. He denies any significant changes in his weight recently. March 30: Today, the patient says he feels about the same. He feels okay at rest, but with trying to walk to the bathroom he becomes extremely short of breath. He still has a cough, productive of tiny amounts of yellowish phlegm, with some red streaks. His brother is actually here in the room with him today. He initially got up to use the bathroom early this morning and took his oxygen off. When he got back in bed, his O2 saturations red around 60%. After about 5 minutes on 4 L nasal cannula, he did return back up to 94%. When I entered the room today, he had just come back from the bathroom, while wearing his oxygen. His O2 levels are still down in the 60s at that time, and it did take about 5 minutes before he rebounded into the 90s. Otherwise, he denies fever or chills, chest pain or palpitations, abdominal pain , nausea or vomiting, diarrhea or constipation or dysuria. March 31- patient feels a lot better. pulmonology consult pending. on 4 L oxygen. no overnight fever chills nausea vomiting or concerns per medical staff. Improving cough and dyspnea. On antibiotic coverage. friends at bedside. April 01- patient is doing well. n currently 4 L oxygen. white count 13.5. pulmonology consulted. Recommends echocardiogram/oxygen therapy and antireflux regimen, continue antibiotic coverage for multifocal pneumonia. no overnight fever chills. No concerns from medical staff or patient. April 02- patient had a rough night with a fever of over 102. Blood cultures drawn. White count 13,000. worsening hypoxia requiring 7 L oxygen. cultures negative to date. patient desaturates with minimal effort. Pulmonology on board. Transfer to telemetry in light of significant hypoxic respiratory failure for close monitoring of hemodynamics. Rheumatoid/IFEANYI panel ordered by pulmonology. rheumatoid factor 108. continue antibiotic coverage. Currently afebrile April 03: Patient seen examined, see event note for details yesterday evening, in short the patient conintues to need high levels of oxygen, remains [id number] with shallow breathing, and has low grade temp. He denies any acute complaints. Given his infiltrates and positive RA, started on steroids. IV vanco andded, Zithro to be added to cover atypical agents. Pt is presently on 10-14L oxygen depending of his activity level. He is tolerating bipap well with fio2 35, 10/5 settings. Pertinent ROS: Denies headache, dizziness Denies chest pain, palpitations Denies cough or shortness of breath Denies abdominal pain, nausea or vomiting. - Constitutional Vitals: Vital Signs Temp Pulse Resp BP Pulse Ox 97.9 F 90 18 95/58 94 04/03/17 03:58 04/03/17 07:39 04/03/17 07:39 04/03/17 03:58 04/03/17 07:39 Period Temp Pulse Resp BP Sys/Hernandez Pulse Ox Last 24 Hr 96.9 F-99.1 F 87-110 18-36 92-103/58-65 90-96 Intake and Output 04/02/17 04/03/17 04/03/17 21:59 05:59 13:59 Intake Total 350 / 350 50 / 50 Output Total 900 / 900 350 / 350 Balance -550 / -550 -300 / -300 Weight 164 lb 1.6 oz Intake & Output: Intake & Output 04/02/17 04/03/17 04/03/17 21:59 05:59 13:59 Intake Total 350 / 350 50 / 50 Output Total 900 / 900 350 / 350 Balance -550 / -550 -300 / -300 Weight 164 lb 1.6 oz Intake: IV 350 / 350 50 / 50 Zosyn 3.375 gm In 100 / 100 50 / 50 Dextrose 5% in Water 50 ml @ 100 mls/hr IV Q6H [facility] Rx#:[id number] Vancomycin 1,000 mg In 250 / 250 Sodium Chloride 0.9% 250 ml @ 250 mls/hr IV Q12H [facility] Rx#:[id number] Output: Urine Catheter Amount 350 / 350 Void Amount 900 / 900 Other: # Bowel Movements 0 Exam: Constitutional; Afebrile, cooperative, alert, not in distress. Eyes- No icterus, , No periorbital swelling Ears- Ext ear normal, hearing normal to conversation. Neck- Midline trachea, supple Respiratory system: Air Entry equal on both sides, maykel shallow breaths, maykel conducted sounds. no wheezing. CVS- Rate rhythm regular, S1,S2 heard, no gallop, no rub. Abdomen- Soft nontender abdomen, no organomegaly, no tenderness, no guarding or rigidity, [employer]ERK- AOOx3, moving all extremities, no gross focal deficit noted. Medical - PN: Obj Da - Labs CBC & Chem 7: 04/03/17 03:40 04/03/17 03:40 Labs: Abnormal Lab Results 04/03/17 04/03/17 04/02/17 03:40 03:40 04:25 WBC RBC 4.41 L Hgb 12.6 L Hct 38.2 L Gran % 94.1 H Lymph % (Auto) 4.3 L Turner % (Auto) 0.9 L Gran # 9.2 H Lymph # (Auto) 0.4 L Turner # (Auto) Eos # (Auto) Glucose 179 H Calcium 8.2 L Phosphorus 4.6 H Magnesium 2.6 H GGT 73 H Alkaline Phosphatase 133 H Lactate Dehydrogenase 367 H 371 H C-Reactive Protein 19.5 H Albumin 3.1 L Albumin (PEP) Globulin 4.9 H 4.3 H Globulin (PEP) Albumin/Globulin Ratio 0.7 L 0.7 L Albumin/Globulin (PEP) Beta Globulins Gamma Globulins Rheumatoid Factor 04/02/17 04/02/17 04/01/17 04:25 04:19 05:55 WBC 13.0 H RBC 4.12 L Hgb 11.8 L Hct 35.4 L Gran % Lymph % (Auto) 13.5 L Turner % (Auto) Gran # 9.4 H Lymph # (Auto) Turner # (Auto) 1.0 H Eos # (Auto) 0.8 H Glucose Calcium Phosphorus Magnesium GGT Alkaline Phosphatase Lactate Dehydrogenase 344 H C-Reactive Protein Albumin Albumin (PEP) Globulin 4.0 H Globulin (PEP) Albumin/Globulin Ratio 0.8 L Albumin/Globulin (PEP) Beta Globulins Gamma Globulins Rheumatoid Factor 108 H 04/01/17 03/30/17 05:55 14:11 WBC 13.5 H RBC 4.29 L Hgb 12.3 L Hct 36.8 L Gran % Lymph % (Auto) 11.3 L Turner % (Auto) Gran # 10.1 H Lymph # (Auto) Turner # (Auto) 1.2 H Eos # (Auto) Glucose Calcium Phosphorus Magnesium GGT Alkaline Phosphatase Lactate Dehydrogenase C-Reactive Protein Albumin Albumin (PEP) 2.80 L Globulin Globulin (PEP) 4.5 H Albumin/Globulin Ratio Albumin/Globulin (PEP) 0.6 L Beta Globulins 1.22 H Gamma Globulins 1.97 H Rheumatoid Factor Meds: Medications Acetaminophen (Tylenol) 650 mg PO Q6HP PRN PRN Reason: PAIN/FEVER > 101 Hydrocodone Bitart/Acetaminophen ([place] 5/325mg) 1 tab PO Q4HP PRN PRN Reason: Pain Last Admin: 04/03/17 07:49 Dose: 1 tab Albuterol Sulfate (Ventolin) 2.5 mg NEB Q2HP PRN PRN Reason: Shortness Of Breath Albuterol/Ipratropium (Duoneb) 3 ml NEB Q4HRT [facility] Last Admin: 04/03/17 07:06 Dose: 3 ml Aspirin (Aspirin) 81 mg PO DAILY [facility] Last Admin: 04/03/17 07:34 Dose: 81 mg Atorvastatin Calcium (Lipitor) 20 mg PO HS [facility] Last Admin: 04/02/17 20:36 Dose: 20 mg Budesonide (Pulmicort) 0.5 mg NEB Q12 [facility] Last Admin: 04/03/17 07:06 Dose: 0.5 mg Calcium Carbonate/Glycine (Tums) 500 mg CHEWED BID [facility] Last Admin: 04/03/17 07:32 Dose: 500 mg Clonidine HCl (Catapres) 0.1 mg PO Q4HP PRN PRN Reason: Alcohol Withdrawal Docusate Sodium (Colace) 100 mg PO BID PRN PRN Reason: Constipation Last Admin: 04/03/17 07:37 Dose: 100 mg Folic Acid (Folic Acid) 1 mg PO DAILY [facility] Last Admin: 04/03/17 07:32 Dose: 1 mg Furosemide (Lasix) 20 mg PO DAILY [facility] Last Admin: 04/03/17 07:33 Dose: 20 mg Heparin Sodium (Porcine) (Heparin) 5,000 unit SQ Q12 [facility] Last Admin: 04/03/17 07:33 Dose: 5,000 unit Acetaminophen (Ofirmev) 1,000 mg in 100 mls @ 200 mls/hr IV Q6HP PRN PRN Reason: PAIN/FEVER > 101 Piperacillin Sod/Tazobactam (Sod 3.375 gm/ Dextrose) 50 mls @ 100 mls/hr IV Q6H [facility] Last Admin: 04/03/17 05:10 Dose: 100 mls/hr Vancomycin HCl 1,000 mg/ (Sodium Chloride) 250 mls @ 250 mls/hr IV Q12H [facility] Last Admin: 04/03/17 05:44 Dose: 250 mls/hr Iron Carb/Multivit/[place]/Folic Acid (Multivitamin W/Minerals) 1 tab PO DAILY [facility] Last Admin: 04/03/17 07:37 Dose: 1 tab Lisinopril (Zestril) 10 mg PO DAILY [facility] Last Admin: 04/03/17 07:33 Dose: 10 mg Lorazepam (Ativan) 1 mg IV Q4HP PRN; Protocol PRN Reason: Alcohol Withdrawal Last Admin: 04/02/17 23:36 Dose: 1 mg Magnesium Hydroxide (Milk Of Magnesia) 30 ml PO DAILYP PRN PRN Reason: Constipation Naloxone HCl (Narcan) 0.1 mg IV Q2MIN PRN PRN Reason: Opiate Reversal Ondansetron HCl (Zofran) 4 mg IV Q6HP PRN PRN Reason: Nausea And Vomiting Pantoprazole Sodium (Protonix) 40 mg PO [facility] Last Admin: 04/03/17 07:20 Dose: 40 mg Prednisone (Prednisone) 60 mg PO [facility] Last Admin: 04/03/17 07:41 Dose: 60 mg Sodium Chloride (Saline Flush) 10 ml IV Q8 [facility] Last Admin: 04/03/17 05:10 Dose: 10 ml Thiamine HCl (Vitamin B1) 100 mg PO QDAY [facility] Vancomycin HCl (Vancomycin Per Pharmacy) 1 order IV UD [facility] Vitamin D (Vitamin D3) 1,000 unit PO BID [facility] Last Admin: 04/03/17 07:50 Dose: 1,000 unit Medical - PN: A/P - Time Spent With Patient Total time spent is greater than 50% in coordination of care (as documented) at patient's floor/unit and/or counseling patient: - Narrative A/P Narrative: A/P Acute hypoxic Respiratory failure: due to lung fibrosis, pna. Pulmonary following, On high flow NC At 9-14 depending on activity level. BIPAP FIo2 35, 10/5, echo offical report pending, likely elevated RV pressures. LV function ok? Pneumonia : neg microbiology so far, possible pna, on zosyn, Vanco added yesterdary, Zithromax today for atypical coverage. Monitor ILD: Etiology, aspiration vs rheumatoid vs other. Pulmonary following, on steroids. Await ifeanyi and anti ccp levels. SS DNA ordered by pulm, RA factor elevated Sepsis: due to pna, clnically improving. Alcohol dependence: not in withdrawal, monitor. CAD/ CHF/ CVA: Continue statin, lasix, asa, lisinopril, for secondary prophylaxis. Full Code DVT Prophylaxis, Hep SQ Medical - PN: Qual - VTE Deep Vein Thrombosis/Pulmonary Embolism Present on Admission: No
--- NOTE | 2017-04-03 08:42 | Pulmonology Progress Note ---
Subjective Patient information: Note initiated : 04/03/17 at 8:39 am Service Date, if different from initiated Date: [] Patient: Drew Broussard Jr 56 y/o M admitted on 03/29/17 for shortness of breath. Chief Complaint: [] Additional PMFSH (Level 3 Only): Pulmonary consult progress note. The patient had an uneventful night with increased temperature and hypoxemia transferred to the intensive care unit by hospitalist staff. This morning he is alert and conversational. He is without specific new complaints. Vital signs as noted in the electronic record. On physical examination pleasant gentleman head Head atraumatic and normocephalic Neck supple. Lungs continued coarse rhonchi and interstitial sounds. Heart regular S1-S2 without gallop rub jugular venous distention or dependent edema. Abdomen soft bowel sounds present no tenderness or organomegaly. Bones joints and extremities intact and without acute changes. Neurologic exam nonfocal. Laboratory noted is the elevated rheumatoid factor I 108. Agree with initiation of steroids. Wonder if the rheumatology staff could review the situation. CCP is pending at this time rheumatoid factor may be nonspecific. 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 Agree with broadened antibiotics in light of temperature. Discussed and reviewed this a.m. 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 Recommendation continue current therapy as per orders. Aiden Burr MD Pulmonary consult Objective Vital Signs Temp Pulse Pulse Resp BP Pulse Ox 04/03/17 07:39 90 18 94 04/03/17 03:58 97.9 F 94 H 24 H 95/58 90 04/03/17 02:54 95 H 24 H 04/03/17 01:09 87 33 H 94 04/03/17 00:00 96.9 F L 100 H 36 H 94/61 96 04/02/17 23:22 103 H 24 H 95 04/02/17 23:16 101 H 24 H 04/02/17 20:11 94 04/02/17 20:00 97.0 F 20 92/65 95 04/02/17 19:21 110 H 24 H 04/02/17 19:15 108 H 22 94 04/02/17 17:40 105 H 36 H 95 04/02/17 16:00 99.0 F H 24 H 103/58 90 04/02/17 14:00 91 04/02/17 13:57 103 H 18 04/02/17 12:00 99.1 F H 26 H 99/61 90 Intake and Output 04/02/17 04/03/17 04/03/17 21:59 05:59 13:59 Intake Total 350 / 350 50 / 50 Output Total 900 / 900 350 / 350 Balance -550 / -550 -300 / -300 Intake: IV 350 / 350 50 / 50 Zosyn 3.375 gm In 100 / 100 50 / 50 Dextrose 5% in Water 50 ml @ 100 mls/hr IV Q6H [facility] Rx#:[id number] Vancomycin 1,000 mg In 250 / 250 Sodium Chloride 0.9% 250 ml @ 250 mls/hr IV Q12H LOGAN Rx#:[id number] Output: Urine Catheter Amount 350 / 350 Void Amount 900 / 900 Other: # Bowel Movements 0 Weight 164 lb 1.6 oz Intake & Output: Intake & Output 04/02/17 04/03/17 04/03/17 21:59 05:59 13:59 Intake Total 350 / 350 50 / 50 Output Total 900 / 900 350 / 350 Balance -550 / -550 -300 / -300 Weight 164 lb 1.6 oz Intake: IV 350 / 350 50 / 50 Zosyn 3.375 gm In 100 / 100 50 / 50 Dextrose 5% in Water 50 ml @ 100 mls/hr IV Q6H [facility] Rx#:[id number] Vancomycin 1,000 mg In 250 / 250 Sodium Chloride 0.9% 250 ml @ 250 mls/hr IV Q12H [facility] Rx#:[id number] Output: Urine Catheter Amount 350 / 350 Void Amount 900 / 900 Other: # Bowel Movements 0 CBC and BMP: 04/03/17 03:40 04/03/17 03:40 ABG, PT/INR, D-dimer: PT/INR, D-dimer D-Dimer 1.86 ug/ml (0.00-0.40) H 03/29/17 18:20 Abnormal lab findings: Abnormal Labs 03/30/17 03/30/17 03/30/17 05:15 05:15 08:42 WBC 11.2 H RBC Hgb 13.1 L Hct 39.6 L Gran % Lymph % (Auto) [place] % (Auto) Gran # Lymph # (Auto) [place] # (Auto) Eos # (Auto) Glucose Calcium 7.9 L Ionized Calcium Penny 1.13 L Phosphorus Magnesium GGT Alkaline Phosphatase Lactate Dehydrogenase 347 H C-Reactive Protein Albumin Albumin (PEP) Globulin 4.1 H Globulin (PEP) Albumin/Globulin Ratio 0.8 L Albumin/Globulin (PEP) Beta Globulins Gamma Globulins Rheumatoid Factor 03/30/17 03/31/17 03/31/17 14:11 05:52 05:52 WBC RBC 4.24 L Hgb 12.1 L Hct 36.5 L Gran % Lymph % (Auto) [place] % (Auto) Gran # Lymph # (Auto) [place] # (Auto) Eos # (Auto) Glucose Calcium 7.9 L Ionized Calcium Penny Phosphorus Magnesium GGT Alkaline Phosphatase Lactate Dehydrogenase 324 H C-Reactive Protein Albumin 3.0 L Albumin (PEP) 2.80 L Globulin 4.1 H Globulin (PEP) 4.5 H Albumin/Globulin Ratio 0.7 L Albumin/Globulin (PEP) 0.6 L Beta Globulins 1.22 H Gamma Globulins 1.97 H Rheumatoid Factor 04/01/17 04/01/17 04/02/17 05:55 05:55 04:19 WBC 13.5 H RBC 4.29 L Hgb 12.3 L Hct 36.8 L Gran % Lymph % (Auto) 11.3 L [place] % (Auto) Gran # 10.1 H Lymph # (Auto) [place] # (Auto) 1.2 H Eos # (Auto) Glucose Calcium Ionized Calcium Penny Phosphorus Magnesium GGT Alkaline Phosphatase Lactate Dehydrogenase 344 H C-Reactive Protein Albumin Albumin (PEP) Globulin 4.0 H Globulin (PEP) Albumin/Globulin Ratio 0.8 L Albumin/Globulin (PEP) Beta Globulins Gamma Globulins Rheumatoid Factor 108 H 04/02/17 04/02/17 04/03/17 04:25 04:25 03:40 WBC 13.0 H RBC 4.12 L 4.41 L Hgb 11.8 L 12.6 L Hct 35.4 L 38.2 L Gran % 94.1 H Lymph % (Auto) 13.5 L 4.3 L [place] % (Auto) 0.9 L Gran # 9.4 H 9.2 H Lymph # (Auto) 0.4 L [place] # (Auto) 1.0 H Eos # (Auto) 0.8 H Glucose Calcium 8.2 L Ionized Calcium Penny Phosphorus Magnesium GGT Alkaline Phosphatase Lactate Dehydrogenase 371 H C-Reactive Protein Albumin 3.1 L Albumin (PEP) Globulin 4.3 H Globulin (PEP) Albumin/Globulin Ratio 0.7 L Albumin/Globulin (PEP) Beta Globulins Gamma Globulins Rheumatoid Factor 04/03/17 03:40 WBC RBC Hgb Hct Gran % Lymph % (Auto) [place] % (Auto) Gran # Lymph # (Auto) [place] # (Auto) Eos # (Auto) Glucose 179 H Calcium Ionized Calcium Penny Phosphorus 4.6 H Magnesium 2.6 H GGT 73 H Alkaline Phosphatase 133 H Lactate Dehydrogenase 367 H C-Reactive Protein 19.5 H Albumin Albumin (PEP) Globulin 4.9 H Globulin (PEP) Albumin/Globulin Ratio 0.7 L Albumin/Globulin (PEP) Beta Globulins Gamma Globulins Rheumatoid Factor
[2017-04-03 08:55] LABS: Erythrocyte Sedimentation Rate 97 mm/hr (0-15)
[2017-04-03] MEDS ORDERED: FUROSEMIDE 20 MG TABLET PO SCH (09:00)
--- NOTE | 2017-04-03 09:07 | XRay Report ---
CLINICAL INFORMATION: Hypoxia TECHNIQUE: AP portable semierect chest x-ray COMPARISON: Previous examinations dated 04/02/2017, 03/30/2017, 01/01/2017 FINDINGS: Cardiomegaly is unchanged. Bilateral diffuse pulmonary parenchymal infiltrates are unchanged since 04/02/2017. Findings remain consistent with severe underlying pulmonary parenchymal disease and probable superimposed pneumonia. No new abnormalities. IMPRESSION: No interval change since 04/02/2017 Interpreted and Authenticated by: Jeffrey Schrader 04/03/17
[2017-04-03] MEDS: AZITHROMYCIN 250 MG TABLET PO SCH (15:58)
[2017-04-03] MEDS: THIAMINE 100 MG TABLET PO SCH (16:03)
[2017-04-03] MEDS: ATORVASTATIN 20 MG TABLET PO SCH (20:37)
[2017-04-03] MEDS: LORazepam 2 MG/ML VIAL IV PRN (20:37)
[2017-04-04] MEDS: HYDROcodone/APAP 5/325MG TABLET PO PRN ×2 (00:08→20:31)
[2017-04-04] MEDS: IPRATROPIUM/ALBUTEROL 3 ML AMPUL.NEB NEB SCH ×6 (03:07→22:44)
[2017-04-04] MEDS: PIPERACILLIN SODIUM/TAZOBACTAM 3.375 GM in DEXTROSE 5% IN WATER 50 ML IV SCH ×4 (05:45→23:28)
[2017-04-04] MEDS: 0.9 % SODIUM CHLORIDE 10 ML SYRINGE IV SCH ×3 (05:45→21:44)
[2017-04-04 06:39] LABS: Basophils # (Auto) 0 K/mcL (0.0-0.3); Basophils % (Auto) 0 % (0.0-2.0); Eosinophils # (Auto) 0.1 K/mcL (0.0-0.7); Eosinophils % (Auto) 0.5 % (0.0-7.0); Granulocytes % (Auto) 83.7 % (38.0-78.0); Lymphocytes # (Auto) 1.4 K/mcL (1.5-4.8); Lymphocytes % (Auto) 7.8 % (15.5-49.0); Mean Cell Volume 86.1 fL (80.0-100.0); Mean Corpuscular HGB Conc 32.9 g/dL (31.0-36.0); Mean Corpuscular Hemoglobin 28.3 pg (26.0-34.0); Monocytes # (Auto) 1.5 K/mcL (0.1-0.9); Platelet Count 451 K/mcL (140-440); RBC 4.27 M/mcL (4.50-5.90); Red Cell Distribution Width 13.4 % (11.5-14.5)
[2017-04-04 06:44] LABS: ALT/SGPT 13 U/l (0-40); Albumin 3.2 gm/dL (3.2-5.2); Albumin/Globulin Ratio 0.7 (1.0-2.3); Alkaline Phosphatase 127 U/L (39-117); Bilirubin,Direct < 0.2 mg/dL (0.0-0.3); Blood Urea Nitrogen 20 mg/dl (6-20); Gamma Glutamyl Transpeptidase 69 U/L (8-61); Magnesium 2.6 mg/dL (1.6-2.5); Uric Acid 4.8 mg/dL (2.5-8.0)
[2017-04-04] MEDS: BUDESONIDE 0.5 MG/2 ML AMPUL.NEB NEB SCH ×2 (07:18→19:14)
[2017-04-04] MEDS ORDERED: predniSONE 20 MG TABLET PO SCH (08:00)
--- NOTE | 2017-04-04 08:27 | Pulmonology Progress Note ---
Subjective Patient information: Note initiated : 04/04/17 at 8:22 am Service Date, if different from initiated Date: [] Patient: Drew Broussard Jr 56 y/o M admitted on 03/29/17 for shortness of breath. Chief Complaint: [None voiced today. Patient is a pleasant 56-year-old male. He is a man of few words. He reports that he had a good night. Nursing staff indicates that he used his BiPAP support for 6 or so hours last night in the night. He is still on 13 L oxygen by nasal cannula or facemask. He reports some cough variably productive.] Elevation of white count with the introduction of steroids as noted. On physical examination Head atraumatic and normocephalic. Neck supple. Lungs coarse interstitial and rhonchus sounds scattered but greater in the bases slightly improved. Heart regular S1-S2 no gallops or venous distention no dependent edema. Abdomen soft bowel sounds present decreased. Bones joints extremities intact neurologic Neurologic exam nonfocal. Impression profound interstitial pulmonary insult etiology not precisely defined 's CCP pending elevated rheumatoid factor perhaps nonspecific due to his overall inflammation documented significant esophageal reflux and possible aspiration as etiology. Recommendations at this time stay the course with antibiotics. Taper prednisone to 20 mg fairly rapidly. Objective Vital Signs Temp Pulse Pulse Resp BP Pulse Ox 04/04/17 07:21 96 H 20 91 04/04/17 04:00 98.5 F 100 H 32 H 106/62 90 04/04/17 03:32 97.4 F 04/04/17 03:00 88 33 H 94 04/04/17 01:17 100 H 31 H 96 04/03/17 23:59 98.4 F 97 H 25 H 97/56 93 04/03/17 23:09 94 H 31 H 94 04/03/17 23:08 94 H 22 04/03/17 20:00 97.5 F 97 H 22 112/66 90 04/03/17 19:21 101 H 18 94 04/03/17 16:00 97.1 F 100 H 18 113/67 94 04/03/17 15:14 99 H 20 04/03/17 14:00 94 04/03/17 12:00 97.0 F 101 H 18 107/72 96 04/03/17 11:06 98 H 18 Intake and Output 04/03/17 04/04/1717 21:59 05:59 13:59 Intake Total 350 / 350 1020 / 1020 50 / 50 Output Total 900 / 900 500 / 500 Balance -550 / -550 520 / 520 50 / 50 Intake: IV 50 / 50 300 / 300 50 / 50 Zosyn 3.375 gm In 50 / 50 50 / 50 50 / 50 Dextrose 5% in Water 50 ml @ 100 mls/hr IV Q6H [facility] Rx#:[id number] Vancomycin 1,000 mg In 250 / 250 Sodium Chloride 0.9% 250 ml @ 250 mls/hr IV Q12H [facility] Rx#:[id number] Oral 300 / 300 720 / 720 Output: Void Amount 900 / 900 500 / 500 Other: Meal Lunch Percent of Meal Consumed 75% # Voids 1 Weight 160 lb 8 oz Intake & Output: Intake & Output 04/03/17 04/04/17 04/04/17 21:59 05:59 13:59 Intake Total 350 / 350 1020 / 1020 50 / 50 Output Total 900 / 900 500 / 500 Balance -550 / -550 520 / 520 50 / 50 Weight 160 lb 8 oz Intake: IV 50 / 50 300 / 300 50 / 50 Zosyn 3.375 gm In 50 / 50 50 / 50 50 / 50 Dextrose 5% in Water 50 ml @ 100 mls/hr IV Q6H [facility] Rx#:[id number] Vancomycin 1,000 mg In 250 / 250 Sodium Chloride 0.9% 250 ml @ 250 mls/hr IV Q12H [facility] Rx#:[id number] Oral 300 / 300 720 / 720 Output: Void Amount 900 / 900 500 / 500 Other: Meal Lunch Percent of Meal Consumed 75% # Voids 1 CBC and BMP: 04/04/17 04:07 04/04/17 04:07 ABG, PT/INR, D-dimer: PT/INR, D-dimer D-Dimer 1.86 ug/ml (0.00-0.40) H 03/29/17 18:20 Abnormal lab findings: Abnormal Labs 03/30/17 03/30/17 03/30/17 05:15 05:15 08:42 WBC 11.2 H RBC Hgb 13.1 L Hct 39.6 L Plt Count Gran % Lymph % (Auto) [place] % (Auto) Gran # Lymph # (Auto) [place] # (Auto) Eos # (Auto) ESR Glucose Calcium 7.9 L Ionized Calcium Penny 1.13 L Phosphorus Magnesium GGT Alkaline Phosphatase Lactate Dehydrogenase 347 H C-Reactive Protein Albumin Albumin (PEP) Globulin 4.1 H Globulin (PEP) Albumin/Globulin Ratio 0.8 L Albumin/Globulin (PEP) Beta Globulins Gamma Globulins Vancomycin Trough Rheumatoid Factor 03/30/17 03/31/17 03/31/17 14:11 05:52 05:52 WBC RBC 4.24 L Hgb 12.1 L Hct 36.5 L Plt Count Gran % Lymph % (Auto) [place] % (Auto) Gran # Lymph # (Auto) [place] # (Auto) Eos # (Auto) ESR Glucose Calcium 7.9 L Ionized Calcium Penny Phosphorus Magnesium GGT Alkaline Phosphatase Lactate Dehydrogenase 324 H C-Reactive Protein Albumin 3.0 L Albumin (PEP) 2.80 L Globulin 4.1 H Globulin (PEP) 4.5 H Albumin/Globulin Ratio 0.7 L Albumin/Globulin (PEP) 0.6 L Beta Globulins 1.22 H Gamma Globulins 1.97 H Vancomycin Trough Rheumatoid Factor 04/01/17 04/01/17 04/02/17 05:55 05:55 04:19 WBC 13.5 H RBC 4.29 L Hgb 12.3 L Hct 36.8 L Plt Count Gran % Lymph % (Auto) 11.3 L [place] % (Auto) Gran # 10.1 H Lymph # (Auto) [place] # (Auto) 1.2 H Eos # (Auto) ESR Glucose Calcium Ionized Calcium Penny Phosphorus Magnesium GGT Alkaline Phosphatase Lactate Dehydrogenase 344 H C-Reactive Protein Albumin Albumin (PEP) Globulin 4.0 H Globulin (PEP) Albumin/Globulin Ratio 0.8 L Albumin/Globulin (PEP) Beta Globulins Gamma Globulins Vancomycin Trough Rheumatoid Factor 108 H 04/02/17 04/02/17 04/03/17 04:25 04:25 03:40 WBC 13.0 H RBC 4.12 L 4.41 L Hgb 11.8 L 12.6 L Hct 35.4 L 38.2 L Plt Count Gran % 94.1 H Lymph % (Auto) 13.5 L 4.3 L [place] % (Auto) 0.9 L Gran # 9.4 H 9.2 H Lymph # (Auto) 0.4 L [place] # (Auto) 1.0 H Eos # (Auto) 0.8 H ESR 97 H Glucose Calcium 8.2 L Ionized Calcium Penny Phosphorus Magnesium GGT Alkaline Phosphatase Lactate Dehydrogenase 371 H C-Reactive Protein Albumin 3.1 L Albumin (PEP) Globulin 4.3 H Globulin (PEP) Albumin/Globulin Ratio 0.7 L Albumin/Globulin (PEP) Beta Globulins Gamma Globulins Vancomycin Trough Rheumatoid Factor 04/03/17 04/04/17 04/04/17 03:40 04:07 04:07 WBC 18.3 H RBC 4.27 L Hgb 12.1 L Hct 36.8 L Plt Count 451 H Gran % 83.7 H Lymph % (Auto) 7.8 L [place] % (Auto) Gran # 15.3 H Lymph # (Auto) 1.4 L [place] # (Auto) 1.5 H Eos # (Auto) ESR Glucose 179 H 119 H Calcium Ionized Calcium Penny Phosphorus 4.6 H Magnesium 2.6 H 2.6 H GGT 73 H 69 H Alkaline Phosphatase 133 H 127 H Lactate Dehydrogenase 367 H 363 H C-Reactive Protein 19.5 H Albumin Albumin (PEP) Globulin 4.9 H 4.5 H Globulin (PEP) Albumin/Globulin Ratio 0.7 L 0.7 L Albumin/Globulin (PEP) Beta Globulins Gamma Globulins Vancomycin Trough Rheumatoid Factor 04/04/17 04:07 WBC RBC Hgb Hct Plt Count Gran % Lymph % (Auto) [place] % (Auto) Gran # Lymph # (Auto) [place] # (Auto) Eos # (Auto) ESR Glucose Calcium Ionized Calcium Penny Phosphorus Magnesium GGT Alkaline Phosphatase Lactate Dehydrogenase C-Reactive Protein Albumin Albumin (PEP) Globulin Globulin (PEP) Albumin/Globulin Ratio Albumin/Globulin (PEP) Beta Globulins Gamma Globulins Vancomycin Trough 15.6 H Rheumatoid Factor
[2017-04-04] MEDS: PANTOPRAZOLE 40 MG TABLET PO SCH (08:48)
[2017-04-04] MEDS: FOLIC ACID 1 MG TABLET PO SCH (08:49)
[2017-04-04] MEDS: HEPARIN 5,000 UNIT/ML VIAL SQ SCH ×2 (08:49→20:31)
[2017-04-04] MEDS: ASPIRIN 81 MG TAB.CHEW PO SCH (08:49)
[2017-04-04] MEDS: MULTIVIT,THER IRON,CA,FA & MIN 1 TABLET PO SCH (08:50)
[2017-04-04] MEDS: THIAMINE 100 MG TABLET PO SCH (08:51)
[2017-04-04] MEDS: CALCIUM CARBONATE 500 MG TAB.CHEW CHEWED SCH ×2 (08:51→20:31)
[2017-04-04] MEDS: VANCOMYCIN 1,000 MG in 0.9 % SODIUM CHLORIDE 250 ML IV SCH ×2 (08:51→20:31)
[2017-04-04] MEDS: AZITHROMYCIN 250 MG TABLET PO SCH (08:52)
[2017-04-04] MEDS: VITAMIN D3 1,000 UNIT TABLET PO SCH ×2 (08:52→20:31)
[2017-04-04] MEDS: LISINOPRIL 10 MG TABLET PO SCH (08:52)
[2017-04-04] MEDS ORDERED: FUROSEMIDE 20 MG TABLET PO SCH (09:00)
[2017-04-04] MEDS: FUROSEMIDE 20 MG/2 ML VIAL IV SCH (09:43)
--- NOTE | 2017-04-04 11:27 | Internal Med Progress Note ---
Medical - PN: Subj Patient information: Note initiated : 04/04/17 at 11:17 am Service Date, if different from initiated Date: [] Patient: Drew Broussard Jr 56 y/o M admitted on 03/29/17 for shortness of breath. Chief Complaint: [] Interval history: March 29, 2017: History of present illness: Mr. Bobo Hayden is a 56 year old man, whose chart indicates he has a past history of alcohol abuse, coronary disease, CHF, stroke. The patient presented to the emergency room today complaining that he had been having dizziness and severe headaches and shortness of breath for more than a year now. He says he is gotten to the point where he just cannot take it anymore. He is feeling extremely weak, whenever he tries to walk more than 15 or 20 feet. If he stops to rest, his breathing eventually gets back to normal. He has had persistent headaches, so has been taking ibuprofen 2 tablets every 4-6 hours at home. I believe he was being seen at the [facility] clinic. It looks like someone had started an evaluation back in October, and the patient says he has an upcoming appointment with our lunchroom monitor, but he has not been seen yet In the emergency room, he was noted to have room air O2 saturations in the 70s, at rest. CT scan of his chest showed diffuse severe disease, consistent with probable IPF, with superimposed infiltrates, worrisome for a new pneumonia. The patient is admitted for treatment of same. Otherwise, he denies recent fever or chills. He does have a chronic cough that is productive of yellowish to greenish sputum, but only very small amounts. He does report chronic headaches and dizziness. He denies new eye or ear symptoms , or sore throat. He denies swollen glands, chest pain or palpitations, abdominal pain, nausea or vomiting, diarrhea or constipation, dysuria. He denies any significant changes in his weight recently. March 30: Today, the patient says he feels about the same. He feels okay at rest, but with trying to walk to the bathroom he becomes extremely short of breath. He still has a cough, productive of tiny amounts of yellowish phlegm, with some red streaks. His brother is actually here in the room with him today. He initially got up to use the bathroom early this morning and took his oxygen off. When he got back in bed, his O2 saturations red around 60%. After about 5 minutes on 4 L nasal cannula, he did return back up to 94%. When I entered the room today, he had just come back from the bathroom, while wearing his oxygen. His O2 levels are still down in the 60s at that time, and it did take about 5 minutes before he rebounded into the 90s. Otherwise, he denies fever or chills, chest pain or palpitations, abdominal pain , nausea or vomiting, diarrhea or constipation or dysuria. March 31- patient feels a lot better. pulmonology consult pending. on 4 L oxygen. no overnight fever chills nausea vomiting or concerns per medical staff. Improving cough and dyspnea. On antibiotic coverage. friends at bedside. April 01- patient is doing well. n currently 4 L oxygen. white count 13.5. pulmonology consulted. Recommends echocardiogram/oxygen therapy and antireflux regimen, continue antibiotic coverage for multifocal pneumonia. no overnight fever chills. No concerns from medical staff or patient. April 02- patient had a rough night with a fever of over 102. Blood cultures drawn. White count 13,000. worsening hypoxia requiring 7 L oxygen. cultures negative to date. patient desaturates with minimal effort. Pulmonology on board. Transfer to telemetry in light of significant hypoxic respiratory failure for close monitoring of hemodynamics. Rheumatoid/IFEANYI panel ordered by pulmonology. rheumatoid factor 108. continue antibiotic coverage. Currently afebrile April 03: Patient seen examined, see event note for details yesterday evening, in short the patient conintues to need high levels of oxygen, remains [id number] with shallow breathing, and has low grade temp. He denies any acute complaints. Given his infiltrates and positive RA, started on steroids. IV vanco andded, Zithro to be added to cover atypical agents. Pt is presently on 10-14L oxygen depending of his activity level. He is tolerating bipap well with fio2 35, 10/5 settings. april 04: Pt seen examined , no acute overnight issues, still on high levels of o2 requirement, bipap overnight, stable otherwise. Patient has cough but denies any other symptoms. Case reviewed with PULM, RA positive.. Medical Insurance [employer] is not available for eval untill next week, none the less ccp is pending. ifeanyi is pending. Pt afebrile at present. Plan of care reviewed with the patient. I also explained the prognosis and overall poor condition of the patient to his siter yesterday. Pertinent ROS: Denies headache, dizziness Denies chest pain, palpitations Denies cough or shortness of breath(improving cough and sob) Denies abdominal pain, nausea or vomiting. - Constitutional Vitals: Vital Signs Temp Pulse Resp BP Pulse Ox 98.5 F 96 H 20 106/62 91 04/04/17 04:00 04/04/17 07:21 04/04/17 07:21 04/04/17 04:00 04/04/17 07:21 Period Temp Pulse Resp BP Sys/Hernandez Pulse Ox Last 24 Hr 97.0 F-98.5 F 88-101 18-33 97-113/56-72 90-96 Intake and Output 04/03/17 04/04/17 04/04/17 21:59 05:59 13:59 Intake Total 350 / 350 1020 / 1020 50 / 50 Output Total 900 / 900 500 / 500 575 / 575 Balance -550 / -550 520 / 520 -525 / -525 Weight 160 lb 8 oz Intake & Output: Intake & Output 04/03/17 04/04/17 04/04/17 21:59 05:59 13:59 Intake Total 350 / 350 1020 / 1020 50 / 50 Output Total 900 / 900 500 / 500 575 / 575 Balance -550 / -550 520 / 520 -525 / -525 Weight 160 lb 8 oz Intake: IV 50 / 50 300 / 300 50 / 50 Zosyn 3.375 gm In 50 / 50 50 / 50 50 / 50 Dextrose 5% in Water 50 ml @ 100 mls/hr IV Q6H [facility] Rx#:[id number] Vancomycin 1,000 mg In 250 / 250 Sodium Chloride 0.9% 250 ml @ 250 mls/hr IV Q12H [facility] Rx#:[id number] Oral 300 / 300 720 / 720 Output: Void Amount 900 / 900 500 / 500 575 / 575 Other: Meal Lunch Percent of Meal Consumed 75% # Voids 1 1 Exam: Constitutional; Afebrile, cooperative, alert, not in distress. Eyes- No icterus, , No periorbital swelling Ears- Ext ear normal, hearing normal to conversation. Neck- Midline trachea, supple Respiratory system: Air Entry equal on both sides, mild basilar crackles. CVS- Rate tachycardic rhythm regular, S1,S2 heard, no gallop, no rub. Abdomen- Soft nontender abdomen, no organomegaly, no tenderness, no guarding or rigidity, [employer]- AOOx3, moving all extremities, no gross focal deficit noted. Medical - PN: Obj Da - Labs CBC & Chem 7: 04/04/17 04:07 04/04/17 04:07 Labs: Abnormal Lab Results 04/04/17 04/04/17 04/04/17 04:07 04:07 04:07 WBC 18.3 H RBC 4.27 L Hgb 12.1 L Hct 36.8 L Plt Count 451 H Gran % 83.7 H Lymph % (Auto) 7.8 L Todd % (Auto) Gran # 15.3 H Lymph # (Auto) 1.4 L Todd # (Auto) 1.5 H Eos # (Auto) ESR Glucose 119 H Calcium Phosphorus Magnesium 2.6 H GGT 69 H Alkaline Phosphatase 127 H Lactate Dehydrogenase 363 H C-Reactive Protein Albumin Albumin (PEP) Globulin 4.5 H Globulin (PEP) Albumin/Globulin Ratio 0.7 L Albumin/Globulin (PEP) Beta Globulins Gamma Globulins Vancomycin Trough 15.6 H Rheumatoid Factor 04/03/17 04/03/17 04/02/17 03:40 03:40 04:25 WBC RBC 4.41 L Hgb 12.6 L Hct 38.2 L Plt Count Gran % 94.1 H Lymph % (Auto) 4.3 L Todd % (Auto) 0.9 L Gran # 9.2 H Lymph # (Auto) 0.4 L Todd # (Auto) Eos # (Auto) ESR 97 H Glucose 179 H Calcium 8.2 L Phosphorus 4.6 H Magnesium 2.6 H GGT 73 H Alkaline Phosphatase 133 H Lactate Dehydrogenase 367 H 371 H C-Reactive Protein 19.5 H Albumin 3.1 L Albumin (PEP) Globulin 4.9 H 4.3 H Globulin (PEP) Albumin/Globulin Ratio 0.7 L 0.7 L Albumin/Globulin (PEP) Beta Globulins Gamma Globulins Vancomycin Trough Rheumatoid Factor 04/02/17 04/02/17 03/30/17 04:25 04:19 14:11 WBC 13.0 H RBC 4.12 L Hgb 11.8 L Hct 35.4 L Plt Count Gran % Lymph % (Auto) 13.5 L Todd % (Auto) Gran # 9.4 H Lymph # (Auto) Todd # (Auto) 1.0 H Eos # (Auto) 0.8 H ESR Glucose Calcium Phosphorus Magnesium GGT Alkaline Phosphatase Lactate Dehydrogenase C-Reactive Protein Albumin Albumin (PEP) 2.80 L Globulin Globulin (PEP) 4.5 H Albumin/Globulin Ratio Albumin/Globulin (PEP) 0.6 L Beta Globulins 1.22 H Gamma Globulins 1.97 H Vancomycin Trough Rheumatoid Factor 108 H Meds: Medications Acetaminophen (Tylenol) 650 mg PO Q6HP PRN PRN Reason: PAIN/FEVER > 101 Hydrocodone Bitart/Acetaminophen ([place] 5/325mg) 1 tab PO Q4HP PRN PRN Reason: Pain Last Admin: 04/04/17 00:08 Dose: 1 tab Albuterol Sulfate (Ventolin) 2.5 mg NEB Q2HP PRN PRN Reason: Shortness Of Breath Albuterol/Ipratropium (Duoneb) 3 ml NEB Q4HRT [facility] Last Admin: 04/04/17 07:18 Dose: 3 ml Aspirin (Aspirin) 81 mg PO DAILY [facility] Last Admin: 04/04/17 08:49 Dose: 81 mg Atorvastatin Calcium (Lipitor) 20 mg PO HS [facility] Last Admin: 04/03/17 20:37 Dose: 20 mg Azithromycin (Zithromax) 500 mg PO DAILY [facility] Stop: 04/05/17 09:01 Last Admin: 04/04/17 08:52 Dose: 500 mg Budesonide (Pulmicort) 0.5 mg NEB Q12 [facility] Last Admin: 04/04/17 07:18 Dose: 0.5 mg Calcium Carbonate/Glycine (Tums) 500 mg CHEWED BID [facility] Last Admin: 04/04/17 08:51 Dose: 500 mg Clonidine HCl (Catapres) 0.1 mg PO Q4HP PRN PRN Reason: Alcohol Withdrawal Docusate Sodium (Colace) 100 mg PO BID PRN PRN Reason: Constipation Last Admin: 04/03/17 07:37 Dose: 100 mg Folic Acid (Folic Acid) 1 mg PO DAILY [facility] Last Admin: 04/04/17 08:49 Dose: 1 mg Furosemide (Lasix) 20 mg IV DAILY [facility] Last Admin: 04/04/17 09:43 Dose: 20 mg Heparin Sodium (Porcine) (Heparin) 5,000 unit SQ Q12 [facility] Last Admin: 04/04/17 08:49 Dose: 5,000 unit Acetaminophen (Ofirmev) 1,000 mg in 100 mls @ 200 mls/hr IV Q6HP PRN PRN Reason: PAIN/FEVER > 101 Piperacillin Sod/Tazobactam (Sod 3.375 gm/ Dextrose) 50 mls @ 100 mls/hr IV Q6H [facility] Last Infusion: 04/04/17 06:15 Dose: Infused Vancomycin HCl 1,000 mg/ (Sodium Chloride) 250 mls @ 250 mls/hr IV Q12H [facility] Last Admin: 04/04/17 08:51 Dose: 250 mls/hr Iron Carb/Multivit/[employer]/Folic Acid (Multivitamin W/Minerals) 1 tab PO DAILY [facility] Last Admin: 04/04/17 08:50 Dose: 1 tab Lisinopril (Zestril) 10 mg PO DAILY [facility] Last Admin: 04/04/17 08:52 Dose: 10 mg Lorazepam (Ativan) 1 mg IV Q4HP PRN; Protocol PRN Reason: Alcohol Withdrawal Last Admin: 04/03/17 20:37 Dose: 1 mg Magnesium Hydroxide (Milk Of Magnesia) 30 ml PO DAILYP PRN PRN Reason: Constipation Naloxone HCl (Narcan) 0.1 mg IV Q2MIN PRN PRN Reason: Opiate Reversal Ondansetron HCl (Zofran) 4 mg IV Q6HP PRN PRN Reason: Nausea And Vomiting Pantoprazole Sodium (Protonix) 40 mg PO BIDAC [facility] Prednisone (Prednisone) 20 mg PO [facility] Sodium Chloride (Saline Flush) 10 ml IV Q8 [facility] Last Admin: 04/04/17 05:45 Dose: 10 ml Thiamine HCl (Vitamin B1) 100 mg PO QDAY [facility] Last Admin: 04/04/17 08:51 Dose: 100 mg Vancomycin HCl (Vancomycin Per Pharmacy) 1 order IV UD [facility] Vitamin D (Vitamin D3) 1,000 unit PO BID [facility] Last Admin: 04/04/17 08:52 Dose: 1,000 unit Medical - PN: A/P - Time Spent With Patient Total time spent is greater than 50% in coordination of care (as documented) at patient's floor/unit and/or counseling patient: - Narrative A/P Narrative: A/P Acute hypoxic Respiratory failure: due to lung fibrosis, pna. Pulmonary following, On high flow NC At 9-14 depending on activity level. BIPAP FIo2 35, 10/5, echo official report pending, likely elevated RV pressures. LV function, ok, plan to change oral lasix to IV lasix and monitor his oxygen need. expect a prolonged recovery. Pneumonia : neg microbiology so far, possible pna, on zosyn, Vanco added d2, Zithromax d2 for atypical coverage. Monitor , ILD: Etiology, aspiration vs rheumatoid vs other. Pulmonary following and guiding therapy. Await ifeanyi and anti ccp levels. SS DNA ordered by pulm, RA factor elevated , on steroids, cut back to 40 today and 20mg tomorrow. Sepsis: due to pna, clinically improving. Alcohol dependence: not in withdrawal, monitor. CAD/ CHF/ CVA: Continue statin, lasix, asa, lisinopril, for secondary prophylaxis. Full Code DVT Prophylaxis, Hep SQ Medical - PN: Qual - VTE Deep Vein Thrombosis/Pulmonary Embolism Present on Admission: No
[2017-04-04 18:35] LABS: Complement C3 166.2 mg/dl (90-180)
[2017-04-04] MEDS: LORazepam 2 MG/ML VIAL IV PRN (20:30)
[2017-04-04] MEDS: ATORVASTATIN 20 MG TABLET PO SCH (20:31)
[2017-04-05] MEDS: HYDROcodone/APAP 5/325MG TABLET PO PRN (00:10)
[2017-04-05] MEDS: IPRATROPIUM/ALBUTEROL 3 ML AMPUL.NEB NEB SCH ×6 (02:48→22:48)
[2017-04-05] MEDS: 0.9 % SODIUM CHLORIDE 10 ML SYRINGE IV SCH ×3 (05:46→20:20)
[2017-04-05] MEDS: PIPERACILLIN SODIUM/TAZOBACTAM 3.375 GM in DEXTROSE 5% IN WATER 50 ML IV SCH ×4 (05:46→23:39)
[2017-04-05 06:15] LABS: Basophils # (Auto) 0 K/mcL (0.0-0.3); Basophils % (Auto) 0.2 % (0.0-2.0); Eosinophils # (Auto) 0.3 K/mcL (0.0-0.7); Eosinophils % (Auto) 1.9 % (0.0-7.0); Granulocytes % (Auto) 73.8 % (38.0-78.0); Lymphocytes # (Auto) 2.3 K/mcL (1.5-4.8); Lymphocytes % (Auto) 15.2 % (15.5-49.0); Mean Corpuscular HGB Conc 33.3 g/dL (31.0-36.0); Mean Corpuscular Hemoglobin 28.6 pg (26.0-34.0); Monocytes # (Auto) 1.3 K/mcL (0.1-0.9); Monocytes % (Auto) 8.9 % (1.0-12.0); Platelet Count 429 K/mcL (140-440); RBC 3.98 M/mcL (4.50-5.90); Red Cell Distribution Width 13.4 % (11.5-14.5)
[2017-04-05 06:52] LABS: ALT/SGPT 24 U/l (0-40); Albumin 3.2 gm/dL (3.2-5.2); Albumin/Globulin Ratio 0.8 (1.0-2.3); Alkaline Phosphatase 112 U/L (39-117); Bilirubin,Direct < 0.2 mg/dL (0.0-0.3); Blood Urea Nitrogen 24 mg/dl (6-20); Gamma Glutamyl Transpeptidase 77 U/L (8-61); Magnesium 2.4 mg/dL (1.6-2.5); Uric Acid 4.7 mg/dL (2.5-8.0)
[2017-04-05] MEDS: BUDESONIDE 0.5 MG/2 ML AMPUL.NEB NEB SCH ×2 (07:28→19:19)
[2017-04-05] MEDS ORDERED: predniSONE 20 MG TABLET PO SCH (08:00)
[2017-04-05] MEDS: PANTOPRAZOLE 40 MG TABLET PO SCH ×2 (08:34→17:30)
[2017-04-05] MEDS: HEPARIN 5,000 UNIT/ML VIAL SQ SCH ×2 (08:35→20:19)
[2017-04-05] MEDS: ASPIRIN 81 MG TAB.CHEW PO SCH (08:35)
[2017-04-05] MEDS: FOLIC ACID 1 MG TABLET PO SCH (08:35)
[2017-04-05] MEDS: FUROSEMIDE 20 MG/2 ML VIAL IV SCH (08:35)
[2017-04-05] MEDS: THIAMINE 100 MG TABLET PO SCH (08:36)
[2017-04-05] MEDS: MULTIVIT,THER IRON,CA,FA & MIN 1 TABLET PO SCH (08:36)
[2017-04-05] MEDS: CALCIUM CARBONATE 500 MG TAB.CHEW CHEWED SCH ×2 (08:36→20:19)
[2017-04-05] MEDS: VANCOMYCIN 1,000 MG in 0.9 % SODIUM CHLORIDE 250 ML IV SCH ×2 (08:36→20:20)
[2017-04-05] MEDS: LISINOPRIL 10 MG TABLET PO SCH (08:37)
[2017-04-05] MEDS: VITAMIN D3 1,000 UNIT TABLET PO SCH ×2 (08:37→20:19)
[2017-04-05] MEDS: AZITHROMYCIN 250 MG TABLET PO SCH (08:37)
--- NOTE | 2017-04-05 08:49 | XRay Report ---
CLINICAL INFORMATION: Dyspnea TECHNIQUE: AP portable chest x-ray COMPARISON: 04/03/2017, 04/02/2017, 03/30/2017, 01/01/2017 FINDINGS: Bilateral diffuse pulmonary parenchymal infiltrates appear slightly worse since 04/03/2017. There is increasing mid lung infiltrates bilaterally. Infiltrates are much worse than on baseline study dated 01/01/2017. Appearance remains most consistent with pneumonia superimposed upon chronic lung disease. IMPRESSION: Diffuse pulmonary parenchymal infiltrates, slightly increased since 04/03/2017 Interpreted and Authenticated by: Jeffrey Schrader 04/05/17
--- NOTE | 2017-04-05 15:24 | Internal Med Progress Note ---
Medical - PN: Subj Patient information: Note initiated : 04/05/17 at 3:18 pm Service Date, if different from initiated Date: [] Patient: Drew Broussard Jr 56 y/o M admitted on 03/29/17 for shortness of breath. Chief Complaint: [] Interval history: March 29, 2017: History of present illness: Mr. Bobo Hayden is a 56 year old man, whose chart indicates he has a past history of alcohol abuse, coronary disease, CHF, stroke. The patient presented to the emergency room today complaining that he had been having dizziness and severe headaches and shortness of breath for more than a year now. He says he is gotten to the point where he just cannot take it anymore. He is feeling extremely weak, whenever he tries to walk more than 15 or 20 feet. If he stops to rest, his breathing eventually gets back to normal. He has had persistent headaches, so has been taking ibuprofen 2 tablets every 4-6 hours at home. I believe he was being seen at the [facility] clinic. It looks like someone had started an evaluation back in October, and the patient says he has an upcoming appointment with our sign letterer, but he has not been seen yet In the emergency room, he was noted to have room air O2 saturations in the 70s, at rest. CT scan of his chest showed diffuse severe disease, consistent with probable IPF, with superimposed infiltrates, worrisome for a new pneumonia. The patient is admitted for treatment of same. Otherwise, he denies recent fever or chills. He does have a chronic cough that is productive of yellowish to greenish sputum, but only very small amounts. He does report chronic headaches and dizziness. He denies new eye or ear symptoms , or sore throat. He denies swollen glands, chest pain or palpitations, abdominal pain, nausea or vomiting, diarrhea or constipation, dysuria. He denies any significant changes in his weight recently. March 30: Today, the patient says he feels about the same. He feels okay at rest, but with trying to walk to the bathroom he becomes extremely short of breath. He still has a cough, productive of tiny amounts of yellowish phlegm, with some red streaks. His brother is actually here in the room with him today. He initially got up to use the bathroom early this morning and took his oxygen off. When he got back in bed, his O2 saturations red around 60%. After about 5 minutes on 4 L nasal cannula, he did return back up to 94%. When I entered the room today, he had just come back from the bathroom, while wearing his oxygen. His O2 levels are still down in the 60s at that time, and it did take about 5 minutes before he rebounded into the 90s. Otherwise, he denies fever or chills, chest pain or palpitations, abdominal pain , nausea or vomiting, diarrhea or constipation or dysuria. March 31- patient feels a lot better. pulmonology consult pending. on 4 L oxygen. no overnight fever chills nausea vomiting or concerns per medical staff. Improving cough and dyspnea. On antibiotic coverage. friends at bedside. April 01- patient is doing well. n currently 4 L oxygen. white count 13.5. pulmonology consulted. Recommends echocardiogram/oxygen therapy and antireflux regimen, continue antibiotic coverage for multifocal pneumonia. no overnight fever chills. No concerns from medical staff or patient. April 02- patient had a rough night with a fever of over 102. Blood cultures drawn. White count 13,000. worsening hypoxia requiring 7 L oxygen. cultures negative to date. patient desaturates with minimal effort. Pulmonology on board. Transfer to telemetry in light of significant hypoxic respiratory failure for close monitoring of hemodynamics. Rheumatoid/IFEANYI panel ordered by pulmonology. rheumatoid factor 108. continue antibiotic coverage. Currently afebrile April 03: Patient seen examined, see event note for details yesterday evening, in short the patient conintues to need high levels of oxygen, remains [id number] with shallow breathing, and has low grade temp. He denies any acute complaints. Given his infiltrates and positive RA, started on steroids. IV vanco andded, Zithro to be added to cover atypical agents. Pt is presently on 10-14L oxygen depending of his activity level. He is tolerating bipap well with fio2 35, 10/5 settings. april 04: Pt seen examined , no acute overnight issues, still on high levels of o2 requirement, bipap overnight, stable otherwise. Patient has cough but denies any other symptoms. Case reviewed with PULM, RA positive.. Professional Employer Consultant is not available for eval untill next week, none the less ccp is pending. ifeanyi is pending. Pt afebrile at present. Plan of care reviewed with the patient. I also explained the prognosis and overall poor condition of the patient to his sister April 05: pt seen examined, spent 15 mins with family explaining patients condition. Patient denies any complaints, he seems more sob, and has increased oxygen need, he is presently on 15 L nc, he was placed on bipap today, ABG shows Ph 7.46/46/74, on bipap of 14/8 fio2 50%. He remains on vanco and zosyn and finsied 3 days zithromax 500mg. He is agreeable to transfer to a higher center at this time. Pulmonary is not available this weekend and next week to guide therapy. Pertinent ROS: Denies headache, dizziness Denies chest pain, palpitations Denies cough or shortness of breath Denies abdominal pain, nausea or vomiting. (pt always denies any complaints) - Constitutional Vitals: Vital Signs Temp Pulse Resp BP Pulse Ox 97.5 F 109 H 35 H 102/67 95 04/05/17 12:00 04/05/17 12:00 04/05/17 12:00 04/05/17 12:00 04/05/17 12:00 Period Temp Pulse Resp BP Sys/Hernandez Pulse Ox Last 24 Hr 97.5 F-98.8 F 93-116 18-43 93-102/62-67 86-95 Intake and Output 04/05/17 04/05/17 04/05/17 05:59 13:59 21:59 Intake Total 450 / 450 300 / 300 Output Total 250 / 250 Balance 450 / 450 50 / 50 Intake & Output: Intake & Output 04/05/17 04/05/17 04/05/17 05:59 13:59 21:59 Intake Total 450 / 450 300 / 300 Output Total 250 / 250 Balance 450 / 450 50 / 50 Intake: IV 300 / 300 50 / 50 Zosyn 3.375 gm In 50 / 50 50 / 50 Dextrose 5% in Water 50 ml @ 100 mls/hr IV Q6H [facility] Rx#:[id number] Vancomycin 1,000 mg In 250 / 250 Sodium Chloride 0.9% 250 ml @ 250 mls/hr IV Q12H [facility] Rx#:[id number] Oral 150 / 150 250 / 250 Output: Void Amount 250 / 250 Other: Meal Breakfast Percent of Meal Consumed 100% Feeding Ability Assist with Tray Set Up Exam: Constitutional; Afebrile, cooperative, alert, not in distress. Eyes- No icterus, , No periorbital swelling Ears- Ext ear normal, hearing normal to conversation. Neck- Midline trachea, supple Respiratory system: Air Entry equal on both sides, maykel conducted breath sounds. CVS- Rate tachycardic rhythm regular, S1,S2 heard, no gallop, no rub. Abdomen- Soft nontender abdomen, no organomegaly, no tenderness, no guarding or rigidity, PARTS MANAGER- AOOx3, moving all extremities, no gross focal deficit noted. Medical - PN: Obj Da - Labs CBC & Chem 7: 04/05/17 04:00 04/05/17 04:30 Labs: Abnormal Lab Results 04/05/17 04/05/17 04/04/17 04:30 04:00 04:07 WBC 14.9 H RBC 3.98 L Hgb 11.4 L Hct 34.2 L Plt Count Gran % Lymph % (Auto) 15.2 L [place] % (Auto) Gran # 11.0 H Lymph # (Auto) [place] # (Auto) 1.3 H ESR BUN 24 H Glucose Phosphorus Magnesium GGT 77 H Alkaline Phosphatase Lactate Dehydrogenase 334 H C-Reactive Protein Globulin 4.1 H Albumin/Globulin Ratio 0.8 L Vancomycin Trough 15.6 H IFEANYI Screen 04/04/17 04/04/17 04/03/17 04:07 04:07 03:40 WBC 18.3 H RBC 4.27 L Hgb 12.1 L Hct 36.8 L Plt Count 451 H Gran % 83.7 H Lymph % (Auto) 7.8 L [place] % (Auto) Gran # 15.3 H Lymph # (Auto) 1.4 L [place] # (Auto) 1.5 H ESR BUN Glucose 119 H Phosphorus Magnesium 2.6 H GGT 69 H Alkaline Phosphatase 127 H Lactate Dehydrogenase 363 H C-Reactive Protein Globulin 4.5 H Albumin/Globulin Ratio 0.7 L Vancomycin Trough IFEANYI Screen Pos 1:80 or greater A 04/03/17 04/03/17 03:40 03:40 WBC RBC 4.41 L Hgb 12.6 L Hct 38.2 L Plt Count Gran % 94.1 H Lymph % (Auto) 4.3 L [place] % (Auto) 0.9 L Gran # 9.2 H Lymph # (Auto) 0.4 L [place] # (Auto) ESR 97 H BUN Glucose 179 H Phosphorus 4.6 H Magnesium 2.6 H GGT 73 H Alkaline Phosphatase 133 H Lactate Dehydrogenase 367 H C-Reactive Protein 19.5 H Globulin 4.9 H Albumin/Globulin Ratio 0.7 L Vancomycin Trough IFEANYI Screen Meds: Medications Acetaminophen (Tylenol) 650 mg PO Q6HP PRN PRN Reason: PAIN/FEVER > 101 Hydrocodone Bitart/Acetaminophen (Garfield 5/325mg) 1 tab PO Q4HP PRN PRN Reason: Pain Last Admin: 04/05/17 00:10 Dose: 1 tab Albuterol Sulfate (Ventolin) 2.5 mg NEB Q2HP PRN PRN Reason: Shortness Of Breath Albuterol/Ipratropium (Duoneb) 3 ml NEB Q4HRT [facility] Last Admin: 04/05/17 11:07 Dose: 3 ml Aspirin (Aspirin) 81 mg PO DAILY [facility] Last Admin: 04/05/17 08:35 Dose: 81 mg Atorvastatin Calcium (Lipitor) 20 mg PO HS [facility] Last Admin: 04/04/17 20:31 Dose: 20 mg Budesonide (Pulmicort) 0.5 mg NEB Q12 [facility] Last Admin: 04/05/17 07:28 Dose: 0.5 mg Calcium Carbonate/Glycine (Tums) 500 mg CHEWED BID [facility] Last Admin: 04/05/17 08:36 Dose: 500 mg Clonidine HCl (Catapres) 0.1 mg PO Q4HP PRN PRN Reason: Alcohol Withdrawal Docusate Sodium (Colace) 100 mg PO BID PRN PRN Reason: Constipation Last Admin: 04/03/17 07:37 Dose: 100 mg Folic Acid (Folic Acid) 1 mg PO DAILY [facility] Last Admin: 04/05/17 08:35 Dose: 1 mg Furosemide (Lasix) 20 mg IV DAILY [facility] Last Admin: 04/05/17 08:35 Dose: 20 mg Heparin Sodium (Porcine) (Heparin) 5,000 unit SQ Q12 [facility] Last Admin: 04/05/17 08:35 Dose: 5,000 unit Acetaminophen (Ofirmev) 1,000 mg in 100 mls @ 200 mls/hr IV Q6HP PRN PRN Reason: PAIN/FEVER > 101 Piperacillin Sod/Tazobactam (Sod 3.375 gm/ Dextrose) 50 mls @ 100 mls/hr IV Q6H [facility] Last Admin: 04/05/17 12:27 Dose: 100 mls/hr Vancomycin HCl 1,000 mg/ (Sodium Chloride) 250 mls @ 250 mls/hr IV Q12H [facility] Last Admin: 04/05/17 08:36 Dose: 250 mls/hr Iron Carb/Multivit/[place]/Folic Acid (Multivitamin W/Minerals) 1 tab PO DAILY [facility] Last Admin: 04/05/17 08:36 Dose: 1 tab Lisinopril (Zestril) 10 mg PO DAILY [facility] Last Admin: 04/05/17 08:37 Dose: 10 mg Lorazepam (Ativan) 1 mg IV Q4HP PRN; Protocol PRN Reason: Alcohol Withdrawal Last Admin: 04/04/17 20:30 Dose: 1 mg Magnesium Hydroxide (Milk Of Magnesia) 30 ml PO DAILYP PRN PRN Reason: Constipation Naloxone HCl (Narcan) 0.1 mg IV Q2MIN PRN PRN Reason: Opiate Reversal Ondansetron HCl (Zofran) 4 mg IV Q6HP PRN PRN Reason: Nausea And Vomiting Pantoprazole Sodium (Protonix) 40 mg PO BIDAC [facility] Last Admin: 04/05/17 08:34 Dose: 40 mg [facility]) [facility] Admin: 04/05/17 08:35 Dose: 20 mg Sodium Chloride (Saline Flush) 10 ml IV Q8 [facility] Last Admin: 04/05/17 14:11 Dose: 10 ml Thiamine HCl (Vitamin B1) 100 mg PO QDAY [facility] Last Admin: 04/05/17 08:36 Dose: 100 mg Vancomycin HCl (Vancomycin Per Pharmacy) 1 order IV UD [facility] Vitamin D (Vitamin D3) 1,000 unit PO BID [facility] Last Admin: 04/05/17 08:37 Dose: 1,000 unit Medical - PN: A/P - Time Spent With Patient Total time spent is greater than 50% in coordination of care (as documented) at patient's floor/unit and/or counseling patient: - Narrative A/P Narrative: A/P Acute hypoxic Respiratory failure: due to lung fibrosis, pna. Pulmonary following, on bipap for now, continue same to prevent resp fatigue as well as improve oxygenation. Patient is tolerating it well so far. Consider X jong to higher center if worsens. Presently on bipap with 14/8 Fio2 50% Pneumonia : neg microbiology so far, possible pna, on zosyn, Vanco added d3, Zithromax d3 for atypical coverage. Monitor , ILD: Etiology, aspiration vs rheumatoid vs other. Pulmonary was following and guiding therapy we do not have pulm today and next week. . RA elevated, but ccp pending, IFEANYI mildly positive, c3, c4 wnl. Sepsis: due to pna, clinically improving. Alcohol dependence: not in withdrawal, monitor. CAD/ CHF/ CVA: Continue statin, lasix, asa, lisinopril, for secondary prophylaxis. Full Code DVT Prophylaxis, Hep SQ Medical - PN: Qual - VTE Deep Vein Thrombosis/Pulmonary Embolism Present on Admission: No
[2017-04-05] MEDS ORDERED: predniSONE 20 MG TABLET PO ONE (16:56)
[2017-04-05] MEDS: ATORVASTATIN 20 MG TABLET PO SCH (20:19)
[2017-04-06] MEDS: IPRATROPIUM/ALBUTEROL 3 ML AMPUL.NEB NEB SCH ×6 (02:41→22:56)
[2017-04-06] MEDS: PIPERACILLIN SODIUM/TAZOBACTAM 3.375 GM in DEXTROSE 5% IN WATER 50 ML IV SCH ×4 (05:39→22:44)
[2017-04-06] MEDS: 0.9 % SODIUM CHLORIDE 10 ML SYRINGE IV SCH ×3 (05:39→20:46)
[2017-04-06 05:45] LABS: Basophils # (Auto) 0 K/mcL (0.0-0.3); Basophils % (Auto) 0 % (0.0-2.0); Eosinophils # (Auto) 0 K/mcL (0.0-0.7); Eosinophils % (Auto) 0.3 % (0.0-7.0); Granulocytes % (Auto) 86.9 % (38.0-78.0); Lymphocytes # (Auto) 0.8 K/mcL (1.5-4.8); Lymphocytes % (Auto) 8.1 % (15.5-49.0); Mean Corpuscular HGB Conc 33.3 g/dL (31.0-36.0); Monocytes # (Auto) 0.5 K/mcL (0.1-0.9); Monocytes % (Auto) 4.7 % (1.0-12.0); Platelet Count 453 K/mcL (140-440); RBC 4.24 M/mcL (4.50-5.90); Red Cell Distribution Width 13.6 % (11.5-14.5)
[2017-04-06 05:54] LABS: ALT/SGPT 28 U/l (0-40); Albumin 3.4 gm/dL (3.2-5.2); Albumin/Globulin Ratio 0.8 (1.0-2.3); Alkaline Phosphatase 127 U/L (39-117); Bilirubin,Direct < 0.2 mg/dL (0.0-0.3); Blood Urea Nitrogen 24 mg/dl (6-20); Gamma Glutamyl Transpeptidase 112 U/L (8-61); Magnesium 2.7 mg/dL (1.6-2.5); Uric Acid 4.7 mg/dL (2.5-8.0)
--- NOTE | 2017-04-06 07:16 | Internal Med Progress Note ---
Medical - PN: Subj Patient information: Note initiated : 04/06/17 at 7:01 am Service Date, if different from initiated Date: [] Patient: Drew Broussard Jr 56 y/o M admitted on 03/29/17 for shortness of breath. Chief Complaint: resp failure Interval history: March 29, 2017: History of present illness: Mr. Bobo Hayden is a 56 year old man, whose chart indicates he has a past history of alcohol abuse, coronary disease, CHF, stroke. The patient presented to the emergency room 03/29 complaining that he had been having dizziness and severe headaches and shortness of breath for more than a year now. He says he is gotten to the point where he just cannot take it anymore. He is feeling extremely weak, whenever he tries to walk more than 15 or 20 feet. If he stops to rest, his breathing eventually gets back to normal. He has had persistent headaches, so has been taking ibuprofen 2 tablets every 4-6 hours at home. I believe he was being seen at the [facility] clinic. It looks like someone had started an evaluation back in October, and the patient says he has an upcoming appointment with our bottle line worker, but he has not been seen yet In the emergency room, he was noted to have room air O2 saturations in the 70s, at rest. CT scan of his chest showed diffuse severe disease, consistent with probable IPF, with superimposed infiltrates, worrisome for a new pneumonia. The patient is admitted for treatment of same. Otherwise, he denies recent fever or chills. He does have a chronic cough that is productive of yellowish to greenish sputum, but only very small amounts. He does report chronic headaches and dizziness. He denies new eye or ear symptoms , or sore throat. He denies swollen glands, chest pain or palpitations, abdominal pain, nausea or vomiting, diarrhea or constipation, dysuria. He denies any significant changes in his weight recently. March 30: Today, the patient says he feels about the same. He feels okay at rest, but with trying to walk to the bathroom he becomes extremely short of breath. He still has a cough, productive of tiny amounts of yellowish phlegm, with some red streaks. His brother is actually here in the room with him today. He initially got up to use the bathroom early this morning and took his oxygen off. When he got back in bed, his O2 saturations red around 60%. After about 5 minutes on 4 L nasal cannula, he did return back up to 94%. When I entered the room today, he had just come back from the bathroom, while wearing his oxygen. His O2 levels are still down in the 60s at that time, and it did take about 5 minutes before he rebounded into the 90s. Otherwise, he denies fever or chills, chest pain or palpitations, abdominal pain , nausea or vomiting, diarrhea or constipation or dysuria. March 31- patient feels a lot better. pulmonology consult pending. on 4 L oxygen. no overnight fever chills nausea vomiting or concerns per medical staff. Improving cough and dyspnea. On antibiotic coverage. friends at bedside. April 01- patient is doing well. n currently 4 L oxygen. white count 13.5. pulmonology consulted. Recommends echocardiogram/oxygen therapy and antireflux regimen, continue antibiotic coverage for multifocal pneumonia. no overnight fever chills. No concerns from medical staff or patient. April 02- patient had a rough night with a fever of over 102. Blood cultures drawn. White count 13,000. worsening hypoxia requiring 7 L oxygen. cultures negative to date. patient desaturates with minimal effort. Pulmonology on board. Transfer to telemetry in light of significant hypoxic respiratory failure for close monitoring of hemodynamics. Rheumatoid/IFEANYI panel ordered by pulmonology. rheumatoid factor 108. continue antibiotic coverage. Currently afebrile April 03: Patient seen examined, see event note for details yesterday evening, in short the patient conintues to need high levels of oxygen, remains [id number] with shallow breathing, and has low grade temp. He denies any acute complaints. Given his infiltrates and positive RA, started on steroids. IV vanco andded, Zithro to be added to cover atypical agents. Pt is presently on 10-14L oxygen depending of his activity level. He is tolerating bipap well with fio2 35, 10/5 settings. april 04: Pt seen examined , no acute overnight issues, still on high levels of o2 requirement, bipap overnight, stable otherwise. Patient has cough but denies any other symptoms. Case reviewed with PULM, RA positive.. Technical Agronomist is not available for eval untill next week, none the less ccp is pending. ifeanyi is pending. Pt afebrile at present. Plan of care reviewed with the patient. I also explained the prognosis and overall poor condition of the patient to his sister April 05: pt seen examined, spent 15 mins with family explaining patients condition. Patient denies any complaints, he seems more sob, and has increased oxygen need, he is presently on 15 L nc, he was placed on bipap today, ABG shows Ph 7.46/46/74, on bipap of 14/8 fio2 50%. He remains on vanco and zosyn and finsied 3 days zithromax 500mg. He is agreeable to transfer to a higher center at this time. Pulmonary is not available this weekend and next week to guide therapy. April 06: Was able to tolerated dinner off bipap and held sats on 10L yesterday. FiO2 weaned from 50 down to 40%. Tolerating bipap now on a different mask; pt states the bipap actually felt good. +400cc fluid balance yesterday. Prednisone increased to 60mg yesterday evening after noting pred taper to 20 and worsening respiratory status. He thinks his breathing is a little better. Has cough that is productive of scant phlegm. Had hard BM last night with streaks of blood. Denies h/o constipation or hemorrhoids. Pertinent ROS: no fever or cp - Constitutional Vitals: Vital Signs Temp Pulse Resp BP Pulse Ox 98.5 F 96 H 26 H 111/73 90 04/06/17 04:00 04/06/17 05:00 04/06/17 05:00 04/05/17 21:07 04/06/17 05:34 Period Temp Pulse Resp BP Sys/Hernandez Pulse Ox Last 24 Hr 97.5 F-98.5 F 90-112 24-42 102-123/66-77 89-100 Intake and Output 04/05/17 04/06/17 04/06/17 21:59 05:59 13:59 Intake Total 500 / 500 287 / 287 300 / 300 Output Total 500 / 500 Balance 500 / 500 -213 / -213 300 / 300 Weight 160 lb Intake & Output: Intake & Output 04/05/17 04/06/17 04/06/17 21:59 05:59 13:59 Intake Total 500 / 500 287 / 287 300 / 300 Output Total 500 / 500 Balance 500 / 500 -213 / -213 300 / 300 Weight 160 lb Intake: IV 300 / 300 50 / 50 300 / 300 Zosyn 3.375 gm In 50 / 50 50 / 50 50 / 50 Dextrose 5% in Water 50 ml @ 100 mls/hr IV Q6H [facility] Rx#:[id number] Vancomycin 1,000 mg In 250 / 250 250 / 250 Sodium Chloride 0.9% 250 ml @ 250 mls/hr IV Q12H [facility] Rx#:[id number] Oral 200 / 200 237 / 237 Output: Void Amount 500 / 500 Other: Meal Dinner Percent of Meal Consumed 100% Feeding Ability Independent # Voids 1 # Bowel Movements 1 General appearance: no acute distress Exam: nad - Head Head exam: Present: normal inspection. Absent: atraumatic - Eye Eye exam: Present: PERRL. Absent: conjunctival injection, scleral icterus - ENT ENT exam: Present: mucous membranes moist - Neck Additional comments: no jvd - Respiratory Respiratory exam: Present: CTAB. Absent: accessory muscle use, rales, wheezes - Cardiovascular Additional comments: mild tachycardia at 103. no m/r/g - GI/Abdominal GI/Abdominal exam: Present: normal bowel sounds, soft. Absent: tenderness - Extremities Exam Extremities exam: Absent: calf tenderness, normal inspection, pedal edema - Neurological Exam Neurological exam: Present: alert, CN II-XII intact, oriented X3. Absent: motor sensory deficit - Psychiatric Psychiatric exam: Present: normal affect, normal mood - Skin Skin exam: Present: dry, warm Medical - PN: Obj Da - Labs CBC & Chem 7: 04/06/17 04:26 04/06/17 04:26 Labs: Abnormal Lab Results 04/06/17 04/06/17 04/05/17 04:26 04:26 04:30 WBC RBC 4.24 L Hgb 12.3 L Hct 36.9 L Plt Count 453 H Gran % 86.9 H Lymph % (Auto) 8.1 L Gran # 9.1 H Lymph # (Auto) 0.8 L [place] # (Auto) ESR BUN 24 H 24 H Glucose 179 H Magnesium 2.7 H GGT 112 H 77 H Alkaline Phosphatase 127 H Lactate Dehydrogenase 327 H 334 H Globulin 4.4 H 4.1 H Albumin/Globulin Ratio 0.8 L 0.8 L Vancomycin Trough IFEANYI Screen 04/05/17 04/04/17 04/04/17 04:00 04:07 04:07 WBC 14.9 H RBC 3.98 L Hgb 11.4 L Hct 34.2 L Plt Count Gran % Lymph % (Auto) 15.2 L Gran # 11.0 H Lymph # (Auto) [place] # (Auto) 1.3 H ESR BUN Glucose 119 H Magnesium 2.6 H GGT 69 H Alkaline Phosphatase 127 H Lactate Dehydrogenase 363 H Globulin 4.5 H Albumin/Globulin Ratio 0.7 L Vancomycin Trough 15.6 H IFEANYI Screen 04/04/17 04/03/17 04/03/17 04:07 03:40 03:40 WBC 18.3 H RBC 4.27 L Hgb 12.1 L Hct 36.8 L Plt Count 451 H Gran % 83.7 H Lymph % (Auto) 7.8 L Gran # 15.3 H Lymph # (Auto) 1.4 L [place] # (Auto) 1.5 H ESR 97 H BUN Glucose Magnesium GGT Alkaline Phosphatase Lactate Dehydrogenase Globulin Albumin/Globulin Ratio Vancomycin Trough IFEANYI Screen Pos 1:80 or greater A Meds: Medications Acetaminophen (Tylenol) 650 mg PO Q6HP PRN PRN Reason: PAIN/FEVER > 101 Hydrocodone Bitart/Acetaminophen (Mead 5/325mg) 1 tab PO Q4HP PRN PRN Reason: Pain Last Admin: 04/05/17 00:10 Dose: 1 tab Albuterol Sulfate (Ventolin) 2.5 mg NEB Q2HP PRN PRN Reason: Shortness Of Breath Albuterol/Ipratropium (Duoneb) 3 ml NEB Q4HRT [facility] Last Admin: 04/06/17 02:41 Dose: 3 ml Aspirin (Aspirin) 81 mg PO DAILY [facility] Last Admin: 04/05/17 08:35 Dose: 81 mg Atorvastatin Calcium (Lipitor) 20 mg PO HS [facility] Last Admin: 04/05/17 20:19 Dose: 20 mg Budesonide (Pulmicort) 0.5 mg NEB Q12 [facility] Last Admin: 04/05/17 19:19 Dose: 0.5 mg Calcium Carbonate/Glycine (Tums) 500 mg CHEWED BID [facility] Last Admin: 04/05/17 20:19 Dose: 500 mg Clonidine HCl (Catapres) 0.1 mg PO Q4HP PRN PRN Reason: Alcohol Withdrawal Docusate Sodium (Colace) 100 mg PO BID PRN PRN Reason: Constipation Last Admin: 04/03/17 07:37 Dose: 100 mg Folic Acid (Folic Acid) 1 mg PO DAILY [facility] Last Admin: 04/05/17 08:35 Dose: 1 mg Furosemide (Lasix) 20 mg IV DAILY [facility] Last Admin: 04/05/17 08:35 Dose: 20 mg Heparin Sodium (Porcine) (Heparin) 5,000 unit SQ Q12 [facility] Last Admin: 04/05/17 20:19 Dose: 5,000 unit Acetaminophen (Ofirmev) 1,000 mg in 100 mls @ 200 mls/hr IV Q6HP PRN PRN Reason: PAIN/FEVER > 101 Piperacillin Sod/Tazobactam (Sod 3.375 gm/ Dextrose) 50 mls @ 100 mls/hr IV Q6H [facility] Last Infusion: 04/06/17 06:18 Dose: Infused Vancomycin HCl 1,000 mg/ (Sodium Chloride) 250 mls @ 250 mls/hr IV Q12H [facility] Last Infusion: 04/06/17 06:18 Dose: Infused Iron Carb/Multivit/Bailey/Folic Acid (Multivitamin W/Minerals) 1 tab PO DAILY [facility] Last Admin: 04/05/17 08:36 Dose: 1 tab Lisinopril (Zestril) 10 mg PO DAILY [facility] Last Admin: 04/05/17 08:37 Dose: 10 mg Magnesium Hydroxide (Milk Of Magnesia) 30 ml PO DAILYP PRN PRN Reason: Constipation Naloxone HCl (Narcan) 0.1 mg IV Q2MIN PRN PRN Reason: Opiate Reversal Ondansetron HCl (Zofran) 4 mg IV Q6HP PRN PRN Reason: Nausea And Vomiting Pantoprazole Sodium (Protonix) 40 mg PO BIDAC [facility] Last Admin: 04/05/17 17:30 Dose: 40 mg Prednisone (Prednisone) 60 mg PO [facility] Sodium Chloride (Saline Flush) 10 ml IV Q8 [facility] Last Admin: 04/06/17 05:39 Dose: 10 ml Thiamine HCl (Vitamin B1) 100 mg PO QDAY [facility] Last Admin: 04/05/17 08:36 Dose: 100 mg Vancomycin HCl (Vancomycin Per Pharmacy) 1 order IV [facility] Vitamin D (Vitamin D3) 1,000 unit PO BID [facility] Last Admin: 04/05/17 20:19 Dose: 1,000 unit Medical - PN: A/P - Time Spent With Patient Total time spent is greater than 50% in coordination of care (as documented) at patient's floor/unit and/or counseling patient: Greater than 35 minutes - Narrative A/P Narrative: A/P Acute hypoxic Respiratory failure: due to lung fibrosis, pna. Pulmonary ( [facility]) was following last week. Trial on NC this AM. Definitely will need bipap at [facility], likely also this afternoon. Goal sat 88-92% with CO2 retention. monitor WOB. Cont PRN nebs. Consider X jong to higher center if worsens. Resume bipap later today at prior setting 14/8 FiO2 40%. Watch volume status as he is fluid positive; not clinically volume overloaded. May need to adjust Lasix dose. Pneumonia : neg microbiology so far, CT read as likely superimposed PNA and with fever to 102 on 04/02, will cont tx. Currently on Vanco and Zosyn since . s/p 3 days of high dose azithro (ended 04/05). Plan for at least 8 days of abx (end date possibly 04/09 depending on clinical status). Monitor. Add probiotic to help prevent C diff. ILD: Etiology, aspiration vs rheumatoid vs other. Pulmonary was following and guiding therapy we do not have pulm this week. . RF elevated, but ccp pending, IFEANYI mildly positive, c3, c4 wnl. f/u anti DS Ab. Speech therapy ordered. Cont Protonix BID. He had clinical worsening with tapering of steroids from 40mg to 20mg; now improved on 60mg prednisone. Will cont this dose for now; after a few days of stability/improvement, will consider slower taper. BRBPR: likely 2/2 internal hemorrhoid. Cont bowel meds. Monitor for further signs of bleeding. Trend H/H daily for now. Sepsis: due to pna, clinically improving. Alcohol dependence: not in withdrawal, monitor. CIWA and Ativan D/C'd 04/05. CAD/ CHF/ CVA: Continue statin, lasix, asa, lisinopril, for secondary prophylaxis. Full Code DVT Prophylaxis, Hep SQ Medical - PN: Qual - VTE Deep Vein Thrombosis/Pulmonary Embolism Present on Admission: No
[2017-04-06] MEDS: BUDESONIDE 0.5 MG/2 ML AMPUL.NEB NEB SCH ×2 (07:45→19:08)
[2017-04-06] MEDS: CALCIUM CARBONATE 500 MG TAB.CHEW CHEWED SCH ×2 (08:03→20:45)
[2017-04-06] MEDS: HEPARIN 5,000 UNIT/ML VIAL SQ SCH ×2 (08:03→20:45)
[2017-04-06] MEDS: PANTOPRAZOLE 40 MG TABLET PO SCH ×2 (08:03→17:42)
[2017-04-06] MEDS: FOLIC ACID 1 MG TABLET PO SCH (08:04)
[2017-04-06] MEDS: ASPIRIN 81 MG TAB.CHEW PO SCH (08:04)
[2017-04-06] MEDS: FUROSEMIDE 20 MG/2 ML VIAL IV SCH (08:04)
[2017-04-06] MEDS: predniSONE 20 MG TABLET PO SCH (08:04)
[2017-04-06] MEDS ORDERED: SENNOSIDES/DOCUSATE SODIUM 1 TAB TABLET PO PRN (08:13)
[2017-04-06] MEDS: VITAMIN D3 1,000 UNIT TABLET PO SCH ×2 (08:46→20:46)
[2017-04-06] MEDS: THIAMINE 100 MG TABLET PO SCH (08:46)
[2017-04-06] MEDS: HYDROcodone/APAP 5/325MG TABLET PO PRN (08:47)
[2017-04-06] MEDS: LISINOPRIL 10 MG TABLET PO SCH (08:47)
[2017-04-06] MEDS: MULTIVIT,THER IRON,CA,FA & MIN 1 TABLET PO SCH (08:47)
[2017-04-06] MEDS: VANCOMYCIN 1,000 MG in 0.9 % SODIUM CHLORIDE 250 ML IV SCH ×2 (08:48→20:45)
[2017-04-06] MEDS: LACTOBACILLUS 1 CAPSULE PO SCH ×2 (09:36→20:44)
[2017-04-06] MEDS: ATORVASTATIN 20 MG TABLET PO SCH (20:45)
[2017-04-07] MEDS: IPRATROPIUM/ALBUTEROL 3 ML AMPUL.NEB NEB SCH ×6 (03:12→23:16)
[2017-04-07] MEDS: 0.9 % SODIUM CHLORIDE 10 ML SYRINGE IV SCH ×3 (05:31→20:42)
[2017-04-07] MEDS: PIPERACILLIN SODIUM/TAZOBACTAM 3.375 GM in DEXTROSE 5% IN WATER 50 ML IV SCH ×4 (05:31→23:23)
[2017-04-07 06:09] LABS: Basophils # (Auto) 0 K/mcL (0.0-0.3); Basophils % (Auto) 0.2 % (0.0-2.0); Eosinophils # (Auto) 0.7 K/mcL (0.0-0.7); Eosinophils % (Auto) 3.7 % (0.0-7.0); Granulocytes % (Auto) 72.5 % (38.0-78.0); Lymphocytes % (Auto) 16.7 % (15.5-49.0); Mean Cell Volume 86.3 fL (80.0-100.0); Mean Corpuscular Hemoglobin 28.5 pg (26.0-34.0); Monocytes # (Auto) 1.2 K/mcL (0.1-0.9); Monocytes % (Auto) 6.9 % (1.0-12.0); Platelet Count 501 K/mcL (140-440); RBC 4.13 M/mcL (4.50-5.90); Red Cell Distribution Width 13.3 % (11.5-14.5)
[2017-04-07 06:43] LABS: ALT/SGPT 33 U/l (0-40); Albumin/Globulin Ratio 0.7 (1.0-2.3); Alkaline Phosphatase 109 U/L (39-117); Bilirubin,Direct < 0.2 mg/dL (0.0-0.3); Blood Urea Nitrogen 27 mg/dl (6-20); Gamma Glutamyl Transpeptidase 89 U/L (8-61); Magnesium 2.4 mg/dL (1.6-2.5); Uric Acid 4.9 mg/dL (2.5-8.0)
--- NOTE | 2017-04-07 06:53 | Internal Med Progress Note ---
Medical - PN: Subj Patient information: Note initiated : 04/07/17 at 6:49 am Service Date, if different from initiated Date: [] Patient: Drew Broussard Jr 56 y/o M admitted on 03/29/17 for shortness of breath. Chief Complaint: resp failure Interval history: March 29, 2017: History of present illness: Mr. Bobo Hayden is a 56 year old man, whose chart indicates he has a past history of alcohol abuse, coronary disease, CHF, stroke. The patient presented to the emergency room 03/29 complaining that he had been having dizziness and severe headaches and shortness of breath for more than a year now. He says he is gotten to the point where he just cannot take it anymore. He is feeling extremely weak, whenever he tries to walk more than 15 or 20 feet. If he stops to rest, his breathing eventually gets back to normal. He has had persistent headaches, so has been taking ibuprofen 2 tablets every 4-6 hours at home. I believe he was being seen at the [facility]. It looks like someone had started an evaluation back in October, and the patient says he has an upcoming appointment with our test operator, but he has not been seen yet In the emergency room, he was noted to have room air O2 saturations in the 70s, at rest. CT scan of his chest showed diffuse severe disease, consistent with probable IPF, with superimposed infiltrates, worrisome for a new pneumonia. The patient is admitted for treatment of same. Otherwise, he denies recent fever or chills. He does have a chronic cough that is productive of yellowish to greenish sputum, but only very small amounts. He does report chronic headaches and dizziness. He denies new eye or ear symptoms , or sore throat. He denies swollen glands, chest pain or palpitations, abdominal pain, nausea or vomiting, diarrhea or constipation, dysuria. He denies any significant changes in his weight recently. March 30: Today, the patient says he feels about the same. He feels okay at rest, but with trying to walk to the bathroom he becomes extremely short of breath. He still has a cough, productive of tiny amounts of yellowish phlegm, with some red streaks. His brother is actually here in the room with him today. He initially got up to use the bathroom early this morning and took his oxygen off. When he got back in bed, his O2 saturations red around 60%. After about 5 minutes on 4 L nasal cannula, he did return back up to 94%. When I entered the room today, he had just come back from the bathroom, while wearing his oxygen. His O2 levels are still down in the 60s at that time, and it did take about 5 minutes before he rebounded into the 90s. Otherwise, he denies fever or chills, chest pain or palpitations, abdominal pain , nausea or vomiting, diarrhea or constipation or dysuria. March 31- patient feels a lot better. pulmonology consult pending. on 4 L oxygen. no overnight fever chills nausea vomiting or concerns per medical staff. Improving cough and dyspnea. On antibiotic coverage. friends at bedside. April 01- patient is doing well. n currently 4 L oxygen. white count 13.5. pulmonology consulted. Recommends echocardiogram/oxygen therapy and antireflux regimen, continue antibiotic coverage for multifocal pneumonia. no overnight fever chills. No concerns from medical staff or patient. April 02- patient had a rough night with a fever of over 102. Blood cultures drawn. White count 13,000. worsening hypoxia requiring 7 L oxygen. cultures negative to date. patient desaturates with minimal effort. Pulmonology on board. Transfer to telemetry in light of significant hypoxic respiratory failure for close monitoring of hemodynamics. Rheumatoid/IFEANYI panel ordered by pulmonology. rheumatoid factor 108. continue antibiotic coverage. Currently afebrile April 03: Patient seen examined, see event note for details yesterday evening, in short the patient conintues to need high levels of oxygen, remains [id number] with shallow breathing, and has low grade temp. He denies any acute complaints. Given his infiltrates and positive RA, started on steroids. IV vanco andded, Zithro to be added to cover atypical agents. Pt is presently on 10-14L oxygen depending of his activity level. He is tolerating bipap well with fio2 35, 10/5 settings. april 04: Pt seen examined , no acute overnight issues, still on high levels of o2 requirement, bipap overnight, stable otherwise. Patient has cough but denies any other symptoms. Case reviewed with PULM, RA positive.. Electrical Maintenance Technician is not available for eval untill next week, none the less ccp is pending. ifeanyi is pending. Pt afebrile at present. Plan of care reviewed with the patient. I also explained the prognosis and overall poor condition of the patient to his sister April 05: pt seen examined, spent 15 mins with family explaining patients condition. Patient denies any complaints, he seems more sob, and has increased oxygen need, he is presently on 15 L nc, he was placed on bipap today, ABG shows Ph 7.46/46/74, on bipap of 14/8 fio2 50%. He remains on vanco and zosyn and finsied 3 days zithromax 500mg. He is agreeable to transfer to a higher center at this time. Pulmonary is not available this weekend and next week to guide therapy. April 06: Was able to tolerated dinner off bipap and held sats on 10L yesterday. FiO2 weaned from 50 down to 40%. Tolerating bipap now on a different mask; pt states the bipap actually felt good. +400cc fluid balance yesterday. Prednisone increased to 60mg yesterday evening after noting pred taper to 20 and worsening respiratory status. He thinks his breathing is a little better. Has cough that is productive of scant phlegm. Probiotic added to help prevent C diff Had hard BM last night with streaks of blood. Denies h/o constipation or hemorrhoids. April 07: Was on 10L all day yesterday and just bipap x4 hours overnight. Able to recognize/voice dyspnea better today and counseled on deep breathing/slowing down when this happens. Has poor exercise tolerance, desaturating to 70s with just moving from chair to bed but recovering more quickly. WBC up today after increasing steroids. No fevers. Seems dry by labs an on exam. Will DC Lasix. No further bleeding. He is aware that he has a long recovery course and I told him his lung disease will be progressive in the future, but currently is making progress. Pertinent ROS: no fever or nausea - Constitutional Vitals: Vital Signs Temp Pulse Resp BP Pulse Ox 98.1 F 93 H 30 H 104/54 95 04/07/17 03:30 04/07/17 04:54 04/07/17 04:54 04/07/17 03:30 04/07/17 04:54 Period Temp Pulse Resp BP Sys/Hernandez Pulse Ox Last 24 Hr 97.2 F-98.2 F 82-102 18-32 94-126/54-72 87-98 Intake and Output 04/06/17 04/07/17 04/07/17 21:59 05:59 13:59 Intake Total 1110 / 1110 150 / 150 Output Total 225 / 225 785 / 785 Balance 885 / 885 -635 / -635 Weight 161 lb 4.8 oz Intake & Output: Intake & Output 04/06/17 04/07/17 04/07/17 21:59 05:59 13:59 Intake Total 1110 / 1110 150 / 150 Output Total 225 / 225 785 / 785 Balance 885 / 885 -635 / -635 Weight 161 lb 4.8 oz Intake: IV 50 / 50 50 / 50 Zosyn 3.375 gm In 50 / 50 50 / 50 Dextrose 5% in Water 50 ml @ 100 mls/hr IV Q6H [facility] Rx#:[id number] Oral 1060 / 1060 100 / 100 Output: Void Amount 225 / 225 785 / 785 Other: Meal Dinner Percent of Meal Consumed 75% Feeding Ability Independent # Voids 1 General appearance: no acute distress - Respiratory Respiratory exam: Present: normal respiratory exam, CTAB. Absent: accessory muscle use, rales - Cardiovascular Additional comments: mild tachycardia. no murmurs - GI/Abdominal GI/Abdominal exam: Present: normal bowel sounds, soft - Extremities Exam Additional comments: no c/c/e - Neurological Exam Neurological exam: Present: alert, CN II-XII intact, oriented X3 - Psychiatric Psychiatric exam: Present: normal affect, normal mood Medical - PN: Obj Da - Labs CBC & Chem 7: 04/07/17 04:10 04/07/17 04:10 Labs: Abnormal Lab Results 04/07/17 04/07/17 04/06/17 04:10 04:10 04:26 WBC 17.9 H RBC 4.13 L Hgb 11.8 L Hct 35.6 L Plt Count 501 H Gran % Lymph % (Auto) Gran # 13.0 H Lymph # (Auto) Walton # (Auto) 1.2 H BUN 27 H 24 H Glucose 179 H Magnesium 2.7 H GGT 89 H 112 H Alkaline Phosphatase 127 H Lactate Dehydrogenase 284 H 327 H Albumin 3.0 L Globulin 4.2 H 4.4 H Albumin/Globulin Ratio 0.7 L 0.8 L IFEANYI Screen 04/06/17 04/05/17 04/05/17 04:26 04:30 04:00 WBC 14.9 H RBC 4.24 L 3.98 L Hgb 12.3 L 11.4 L Hct 36.9 L 34.2 L Plt Count 453 H Gran % 86.9 H Lymph % (Auto) 8.1 L 15.2 L Gran # 9.1 H 11.0 H Lymph # (Auto) 0.8 L Walton # (Auto) 1.3 H BUN 24 H Glucose Magnesium GGT 77 H Alkaline Phosphatase Lactate Dehydrogenase 334 H Albumin Globulin 4.1 H Albumin/Globulin Ratio 0.8 L IFEANYI Screen 04/03/17 03:40 WBC RBC Hgb Hct Plt Count Gran % Lymph % (Auto) Gran # Lymph # (Auto) Walton # (Auto) BUN Glucose Magnesium GGT Alkaline Phosphatase Lactate Dehydrogenase Albumin Globulin Albumin/Globulin Ratio IFEANYI Screen Pos 1:80 or greater A Meds: Medications Acetaminophen (Tylenol) 650 mg PO Q6HP PRN PRN Reason: PAIN/FEVER > 101 Hydrocodone Bitart/Acetaminophen ([place] 5/325mg) 1 tab PO Q4HP PRN PRN Reason: Pain Last Admin: 04/06/17 08:47 Dose: 1 tab Albuterol Sulfate (Ventolin) 2.5 mg NEB Q2HP PRN PRN Reason: Shortness Of Breath Albuterol/Ipratropium (Duoneb) 3 ml NEB Q4HRT [facility] Last Admin: 04/07/17 03:12 Dose: 3 ml Aspirin (Aspirin) 81 mg PO DAILY [facility] Last Admin: 04/06/17 08:04 Dose: 81 mg Atorvastatin Calcium (Lipitor) 20 mg PO HS [facility] Last Admin: 04/06/17 20:45 Dose: 20 mg Budesonide (Pulmicort) 0.5 mg NEB Q12 [facility] Last Admin: 04/06/17 19:08 Dose: 0.5 mg Calcium Carbonate/Glycine (Tums) 500 mg CHEWED BID [facility] Last Admin: 04/06/17 20:45 Dose: 500 mg Docusate Sodium (Colace) 100 mg PO BID PRN PRN Reason: Constipation Last Admin: 04/03/17 07:37 Dose: 100 mg Folic Acid (Folic Acid) 1 mg PO DAILY [facility] Last Admin: 04/06/17 08:04 Dose: 1 mg Furosemide (Lasix) 20 mg IV DAILY [facility] Last Admin: 04/06/17 08:04 Dose: 20 mg Heparin Sodium (Porcine) (Heparin) 5,000 unit SQ Q12 [facility] Last Admin: 04/06/17 20:45 Dose: 5,000 unit Acetaminophen (Ofirmev) 1,000 mg in 100 mls @ 200 mls/hr IV Q6HP PRN PRN Reason: PAIN/FEVER > 101 Piperacillin Sod/Tazobactam (Sod 3.375 gm/ Dextrose) 50 mls @ 100 mls/hr IV Q6H [facility] Last Admin: 04/07/17 05:31 Dose: 100 mls/hr Vancomycin HCl 1,000 mg/ (Sodium Chloride) 250 mls @ 250 mls/hr IV Q12H [facility] Last Admin: 04/06/17 20:45 Dose: 200 mls/hr Iron Carb/Multivit/[place]/Folic Acid (Multivitamin W/Minerals) 1 tab PO DAILY [facility] Last Admin: 04/06/17 08:47 Dose: 1 tab Lactobacillus Rhamnosus (Culturelle) 1 cap PO BID [facility] Last Admin: 04/06/17 20:44 Dose: 1 cap Lisinopril (Zestril) 10 mg PO DAILY [facility] Last Admin: 04/06/17 08:47 Dose: 10 mg Naloxone HCl (Narcan) 0.1 mg IV Q2MIN PRN PRN Reason: Opiate Reversal Ondansetron HCl (Zofran) 4 mg IV Q6HP PRN PRN Reason: Nausea And Vomiting Pantoprazole Sodium (Protonix) 40 mg PO BIDAC [facility] Last Admin: 04/06/17 17:42 Dose: 40 mg Prednisone (Prednisone) 60 mg PO [facility] Last Admin: 04/06/17 08:04 Dose: 60 mg Senna/Docusate Sodium (Senna Plus Tablet) 2 tab PO HS PRN PRN Reason: Constipation Sodium Chloride (Saline Flush) 10 ml IV Q8 [facility] Last Admin: 04/07/17 05:31 Dose: 10 ml Thiamine HCl (Vitamin B1) 100 mg PO QDAY [facility] Last Admin: 04/06/17 08:46 Dose: 100 mg Vancomycin HCl (Vancomycin Per Pharmacy) 1 order IV [facility] [place] Vitamin D (Vitamin D3) 1,000 unit PO BID [facility] Last Admin: 04/06/17 20:46 Dose: 1,000 unit Medical - PN: A/P - Time Spent With Patient Total time spent is greater than 50% in coordination of care (as documented) at patient's floor/unit and/or counseling patient: Greater than 35 minutes - Narrative A/P Narrative: A/P Acute hypoxic Respiratory failure: due to lung fibrosis, pna. Pulmonary ( [facility]) was following last week. Trial on NC during day. Definitely will need bipap at [facility], likely also this afternoon. Goal sat 88-92% with CO2 retention. monitor WOB. Cont PRN nebs. Consider X jong to higher center if worsens. Resume bipap q evening at prior setting 29/04 FiO2 40%. mild uremia-->will DC Lasix today. Watch vol status closely. Avoid pulm edema. Pneumonia : neg microbiology so far, CT read as likely superimposed PNA and with fever to 102 on 04/02, will cont tx. Currently on Vanco and Zosyn since . s/p 3 days of high dose azithro (ended 04/05). Plan for at least 8 days of abx (end date possibly 04/09 depending on clinical status). Monitor. Added probiotic 04/06to help prevent C diff. Suspect leukocytosis today is related to demargination; cont to trend. ILD: Etiology, aspiration vs rheumatoid vs other. Pulmonary was following and guiding therapy we do not have pulm this week. . RF elevated, but ccp pending, IFEANYI mildly positive, c3, c4 wnl. f/u anti DS Ab. Speech therapy ordered. Cont Protonix BID. He had clinical worsening with tapering of steroids from 40mg to 20mg; now improved on 60mg prednisone. Will cont this dose for now; after a few days of stability/improvement, will consider slower taper. BRBPR: likely 2/2 internal hemorrhoid. Cont bowel meds. Monitor for further signs of bleeding. Trend H/H daily for now; currently stable Sepsis: due to pna, clinically improving. Alcohol dependence: not in withdrawal, monitor. CIWA and Ativan D/C'd 04/05. CAD/ CHF/ CVA: Continue statin, lasix, asa, lisinopril, for secondary prophylaxis. Full Code DVT Prophylaxis, Hep SQ Medical - PN: Qual - VTE Deep Vein Thrombosis/Pulmonary Embolism Present on Admission: No
[2017-04-07] MEDS: LACTOBACILLUS 1 CAPSULE PO SCH ×2 (08:01→20:41)
[2017-04-07] MEDS: PANTOPRAZOLE 40 MG TABLET PO SCH ×2 (08:01→17:15)
[2017-04-07] MEDS: BUDESONIDE 0.5 MG/2 ML AMPUL.NEB NEB SCH ×2 (08:04→19:08)
[2017-04-07] MEDS: predniSONE 20 MG TABLET PO SCH (08:12)
[2017-04-07] MEDS: ASPIRIN 81 MG TAB.CHEW PO SCH (08:13)
[2017-04-07] MEDS: LISINOPRIL 10 MG TABLET PO SCH (08:13)
[2017-04-07] MEDS: FOLIC ACID 1 MG TABLET PO SCH (08:13)
[2017-04-07] MEDS: MULTIVIT,THER IRON,CA,FA & MIN 1 TABLET PO SCH (08:13)
[2017-04-07] MEDS: CALCIUM CARBONATE 500 MG TAB.CHEW CHEWED SCH ×2 (08:13→20:41)
[2017-04-07] MEDS: HEPARIN 5,000 UNIT/ML VIAL SQ SCH ×2 (08:13→20:41)
[2017-04-07] MEDS: THIAMINE 100 MG TABLET PO SCH (08:14)
[2017-04-07] MEDS: VITAMIN D3 1,000 UNIT TABLET PO SCH ×2 (08:14→20:41)
[2017-04-07] MEDS: VANCOMYCIN 1,000 MG in 0.9 % SODIUM CHLORIDE 250 ML IV SCH ×2 (10:42→20:41)
[2017-04-07] MEDS: ATORVASTATIN 20 MG TABLET PO SCH (20:41)
[2017-04-08] MEDS: IPRATROPIUM/ALBUTEROL 3 ML AMPUL.NEB NEB SCH ×6 (03:04→23:00)
[2017-04-08] MEDS: PIPERACILLIN SODIUM/TAZOBACTAM 3.375 GM in DEXTROSE 5% IN WATER 50 ML IV SCH ×4 (05:39→23:55)
[2017-04-08] MEDS: 0.9 % SODIUM CHLORIDE 10 ML SYRINGE IV SCH ×4 (05:40→21:04)
[2017-04-08 05:55] LABS: ALT/SGPT 27 U/l (0-40); Albumin/Globulin Ratio 0.7 (1.0-2.3); Alkaline Phosphatase 92 U/L (39-117); Basophils # (Auto) 0.1 K/mcL (0.0-0.3); Basophils % (Auto) 0.5 % (0.0-2.0); Bilirubin,Direct < 0.2 mg/dL (0.0-0.3); Blood Urea Nitrogen 18 mg/dl (6-20); Eosinophils # (Auto) 0.5 K/mcL (0.0-0.7); Eosinophils % (Auto) 2.8 % (0.0-7.0); Gamma Glutamyl Transpeptidase 86 U/L (8-61); Granulocytes % (Auto) 74.8 % (38.0-78.0); Lymphocytes # (Auto) 2.4 K/mcL (1.5-4.8); Lymphocytes % (Auto) 14.7 % (15.5-49.0); Magnesium 2.3 mg/dL (1.6-2.5); Mean Corpuscular HGB Conc 33.6 g/dL (31.0-36.0); Mean Corpuscular Hemoglobin 28.2 pg (26.0-34.0); Monocytes # (Auto) 1.2 K/mcL (0.1-0.9); Monocytes % (Auto) 7.2 % (1.0-12.0); Platelet Count 506 K/mcL (140-440); RBC 4.13 M/mcL (4.50-5.90); Red Cell Distribution Width 12.6 % (11.5-14.5); Uric Acid 3.9 mg/dL (2.5-8.0)
[2017-04-08] MEDS: PANTOPRAZOLE 40 MG TABLET PO SCH ×2 (07:13→16:27)
[2017-04-08] MEDS: BUDESONIDE 0.5 MG/2 ML AMPUL.NEB NEB SCH ×2 (07:47→19:18)
[2017-04-08] MEDS: ASPIRIN 81 MG TAB.CHEW PO SCH (08:48)
[2017-04-08] MEDS: FOLIC ACID 1 MG TABLET PO SCH (08:48)
[2017-04-08] MEDS: LACTOBACILLUS 1 CAPSULE PO SCH ×2 (08:48→21:03)
[2017-04-08] MEDS: VITAMIN D3 1,000 UNIT TABLET PO SCH ×2 (08:48→21:02)
[2017-04-08] MEDS: predniSONE 20 MG TABLET PO SCH (08:48)
[2017-04-08] MEDS: LISINOPRIL 10 MG TABLET PO SCH (08:48)
[2017-04-08] MEDS: THIAMINE 100 MG TABLET PO SCH (08:48)
[2017-04-08] MEDS: HEPARIN 5,000 UNIT/ML VIAL SQ SCH ×2 (08:49→21:02)
[2017-04-08] MEDS: CALCIUM CARBONATE 500 MG TAB.CHEW CHEWED SCH ×2 (08:49→21:03)
[2017-04-08] MEDS: VANCOMYCIN 1,000 MG in 0.9 % SODIUM CHLORIDE 250 ML IV SCH ×2 (08:49→21:03)
[2017-04-08] MEDS: MULTIVIT,THER IRON,CA,FA & MIN 1 TABLET PO SCH (08:51)
[2017-04-08 12:53] LABS: Creatine Kinase 37 IU/L (24-195)
--- NOTE | 2017-04-08 13:27 | Internal Med Progress Note ---
Medical - PN: Subj Patient information: Note initiated : 04/08/17 at 1:19 pm Service Date, if different from initiated Date: [] Patient: Drew Broussard Jr 56 y/o M admitted on 03/29/17 for shortness of breath. Chief Complaint: [] Interval history: March 29, 2017: History of present illness: Mr. Bobo Hayden is a 56 year old man, whose chart indicates he has a past history of alcohol abuse, coronary disease, CHF, stroke. The patient presented to the emergency room 03/29 complaining that he had been having dizziness and severe headaches and shortness of breath for more than a year now. He says he is gotten to the point where he just cannot take it anymore. He is feeling extremely weak, whenever he tries to walk more than 15 or 20 feet. If he stops to rest, his breathing eventually gets back to normal. He has had persistent headaches, so has been taking ibuprofen 2 tablets every 4-6 hours at home. I [facility]. It looks like someone had started an evaluation back in October, and the patient says he has an upcoming appointment with our cook night, but he has not been seen yet In the emergency room, he was noted to have room air O2 saturations in the 70s, at rest. CT scan of his chest showed diffuse severe disease, consistent with probable IPF, with superimposed infiltrates, worrisome for a new pneumonia. The patient is admitted for treatment of same. Otherwise, he denies recent fever or chills. He does have a chronic cough that is productive of yellowish to greenish sputum, but only very small amounts. He does report chronic headaches and dizziness. He denies new eye or ear symptoms , or sore throat. He denies swollen glands, chest pain or palpitations, abdominal pain, nausea or vomiting, diarrhea or constipation, dysuria. He denies any significant changes in his weight recently. March 30: Today, the patient says he feels about the same. He feels okay at rest, but with trying to walk to the bathroom he becomes extremely short of breath. He still has a cough, productive of tiny amounts of yellowish phlegm, with some red streaks. His brother is actually here in the room with him today. He initially got up to use the bathroom early this morning and took his oxygen off. When he got back in bed, his O2 saturations red around 60%. After about 5 minutes on 4 L nasal cannula, he did return back up to 94%. When I entered the room today, he had just come back from the bathroom, while wearing his oxygen. His O2 levels are still down in the 60s at that time, and it did take about 5 minutes before he rebounded into the 90s. Otherwise, he denies fever or chills, chest pain or palpitations, abdominal pain , nausea or vomiting, diarrhea or constipation or dysuria. March 31- patient feels a lot better. pulmonology consult pending. on 4 L oxygen. no overnight fever chills nausea vomiting or concerns per medical staff. Improving cough and dyspnea. On antibiotic coverage. friends at bedside. April 01- patient is doing well. n currently 4 L oxygen. white count 13.5. pulmonology consulted. Recommends echocardiogram/oxygen therapy and antireflux regimen, continue antibiotic coverage for multifocal pneumonia. no overnight fever chills. No concerns from medical staff or patient. April 02- patient had a rough night with a fever of over 102. Blood cultures drawn. White count 13,000. worsening hypoxia requiring 7 L oxygen. cultures negative to date. patient desaturates with minimal effort. Pulmonology on board. Transfer to telemetry in light of significant hypoxic respiratory failure for close monitoring of hemodynamics. Rheumatoid/IFEANYI panel ordered by pulmonology. rheumatoid factor 108. continue antibiotic coverage. Currently afebrile April 03: Patient seen examined, see event note for details yesterday evening, in short the patient conintues to need high levels of oxygen, remains [id number] with shallow breathing, and has low grade temp. He denies any acute complaints. Given his infiltrates and positive RA, started on steroids. IV vanco andded, Zithro to be added to cover atypical agents. Pt is presently on 10-14L oxygen depending of his activity level. He is tolerating bipap well with fio2 35, 10/5 settings. april 04: Pt seen examined , no acute overnight issues, still on high levels of o2 requirement, bipap overnight, stable otherwise. Patient has cough but denies any other symptoms. Case reviewed with PULM, RA positive.. Advertising Operations Coordinator is not available for eval untill next week, none the less ccp is pending. ifeanyi is pending. Pt afebrile at present. Plan of care reviewed with the patient. I also explained the prognosis and overall poor condition of the patient to his sister April 05: pt seen examined, spent 15 mins with family explaining patients condition. Patient denies any complaints, he seems more sob, and has increased oxygen need, he is presently on 15 L nc, he was placed on bipap today, ABG shows Ph 7.46/46/74, on bipap of 14/8 fio2 50%. He remains on vanco and zosyn and finsied 3 days zithromax 500mg. He is agreeable to transfer to a higher center at this time. Pulmonary is not available this weekend and next week to guide therapy. April 06: Was able to tolerated dinner off bipap and held sats on 10L yesterday. FiO2 weaned from 50 down to 40%. Tolerating bipap now on a different mask; pt states the bipap actually felt good. +400cc fluid balance yesterday. Prednisone increased to 60mg yesterday evening after noting pred taper to 20 and worsening respiratory status. He thinks his breathing is a little better. Has cough that is productive of scant phlegm. Probiotic added to help prevent C diff Had hard BM last night with streaks of blood. Denies h/o constipation or hemorrhoids. April 07: Was on 10L all day yesterday and just bipap x4 hours overnight. Able to recognize/voice dyspnea better today and counseled on deep breathing/slowing down when this happens. Has poor exercise tolerance, desaturating to 70s with just moving from chair to bed but recovering more quickly. WBC up today after increasing steroids. No fevers. Seems dry by labs an on exam. Will DC Lasix. No further bleeding. He is aware that he has a long recovery course and I told him his lung disease will be progressive in the future, but currently is making progress. April 08: Patient seen examined, no acute overnight events, needs bipap intermittently, still requiring 9L hiflow NC< with drop in oxygen sat with minimal activity. I reviewed the patients case with Dr Mika Julien at [place] who did not feel that anything more needed to be done in terms of his care, Antibiotics and steroids was all that was recommended. Given that patient will likely need 2-3 weeks of antibiotics (bronchiatesis) and is still on high oxygen needs, I discussed with the family today need for x jong to [facility] facility to wean off oxygen and see how he He will be seen by rheumatology today to evaluate if any rheumatological process is ongoing but he is already on 60mg prednisone. Workup in progress. I spent > 30 mins face to face with pt and family and in care coordination today. Pertinent ROS: Denies headache, dizziness Denies chest pain, palpitations cough present, sob on minimal exertion present. Denies abdominal pain, nausea or vomiting. pt usually does not report any symptoms. - Constitutional Vitals: Vital Signs Temp Pulse Resp BP Pulse Ox 98.1 F 104 H 18 100/56 89 L 04/08/17 08:12 04/08/17 11:23 04/08/17 11:23 04/08/17 08:12 04/08/17 08:12 Period Temp Pulse Resp BP Sys/Hernandez Pulse Ox Last 24 Hr 97.0 F-98.4 F 95-104 18-28 100-129/54-72 88-100 Intake and Output 04/07/17 04/08/17 04/08/17 21:59 05:59 13:59 Intake Total 750 / 750 300 / 300 50 / 50 Output Total 550 / 550 400 / 400 1 / Balance 200 / 200 -100 / -100 49 / 49 Weight 162 lb 1.6 oz Intake & Output: Intake & Output 04/07/17 04/08/17 04/08/17 21:59 05:59 13:59 Intake Total 750 / 750 300 / 300 50 / 50 Output Total 550 / 550 400 / 400 1 / 1 Balance 200 / 200 -100 / -100 49 / 49 Weight 162 lb 1.6 oz Intake: IV 50 / 50 300 / 300 50 / 50 Zosyn 3.375 gm In 50 / 50 50 / 50 50 / 50 Dextrose 5% in Water 50 ml @ 100 mls/hr IV Q6H [facility] Rx#:[id number] Vancomycin 1,000 mg In 250 / 250 Sodium Chloride 0.9% 250 ml @ 250 mls/hr IV Q12H [facility] Rx#:[id number] Oral 700 / 700 Output: Void Amount 550 / 550 400 / 400 1 / 1 Other: Meal Dinner Percent of Meal Consumed 100% Feeding Ability Independent # Voids 1 # Bowel Movements 1 Exam: Constitutional; Afebrile, cooperative, alert, not in distress. Eyes- No icterus, , No periorbital swelling Ears- Ext ear normal, hearing normal to conversation. Neck- Midline trachea, supple Respiratory system: Air Entry equal on both sides, maykel conducted breath sounds. CVS- Rate rhythm regular, S1,S2 heard, no gallop, no rub. Abdomen- Soft nontender abdomen, no organomegaly, no tenderness, no guarding or rigidity, RN ACCESS- AOOx3, moving all extremities, no gross focal deficit noted. Medical - PN: Obj Da - Labs CBC & Chem 7: 04/08/17 04:00 04/08/17 04:00 Labs: Abnormal Lab Results 04/08/17 04/08/17 04/07/17 04:00 04:00 07:55 WBC 16.6 H RBC 4.13 L Hgb 11.6 L Hct 34.7 L Plt Count 506 H Gran % Lymph % (Auto) 14.7 L Gran # 12.4 H Lymph # (Auto) Dickinson # (Auto) 1.2 H BUN Glucose Calcium 8.5 L Magnesium GGT 86 H Alkaline Phosphatase Lactate Dehydrogenase 267 H Albumin 3.0 L Globulin 4.1 H Albumin/Globulin Ratio 0.7 L Vancomycin Trough 16.3 H 04/07/17 04/07/17 04/06/17 04:10 04:10 04:26 WBC 17.9 H RBC 4.13 L Hgb 11.8 L Hct 35.6 L Plt Count 501 H Gran % Lymph % (Auto) Gran # 13.0 H Lymph # (Auto) Dickinson # (Auto) 1.2 H BUN 27 H 24 H Glucose 179 H Calcium Magnesium 2.7 H GGT 89 H 112 H Alkaline Phosphatase 127 H Lactate Dehydrogenase 284 H 327 H Albumin 3.0 L Globulin 4.2 H 4.4 H Albumin/Globulin Ratio 0.7 L 0.8 L Vancomycin Trough 04/06/17 04:26 WBC RBC 4.24 L Hgb 12.3 L Hct 36.9 L Plt Count 453 H Gran % 86.9 H Lymph % (Auto) 8.1 L Gran # 9.1 H Lymph # (Auto) 0.8 L Dickinson # (Auto) BUN Glucose Calcium Magnesium GGT Alkaline Phosphatase Lactate Dehydrogenase Albumin Globulin Albumin/Globulin Ratio Vancomycin Trough Meds: Medications Acetaminophen (Tylenol) 650 mg PO Q6HP PRN PRN Reason: PAIN/FEVER > 101 Hydrocodone Bitart/Acetaminophen ([place] 5/325mg) 1 tab PO Q4HP PRN PRN Reason: Pain Last Admin: 04/06/17 08:47 Dose: 1 tab Albuterol Sulfate (Ventolin) 2.5 mg NEB Q2HP PRN PRN Reason: Shortness Of Breath Albuterol/Ipratropium (Duoneb) 3 ml NEB Q4HRT [facility] Last Admin: 04/08/17 11:20 Dose: 3 ml Aspirin (Aspirin) 81 mg PO DAILY [facility] Last Admin: 04/08/17 08:48 Dose: 81 mg Atorvastatin Calcium (Lipitor) 20 mg PO HS [facility] Last Admin: 04/07/17 20:41 Dose: 20 mg Budesonide (Pulmicort) 0.5 mg NEB Q12 [facility] Last Admin: 04/08/17 07:47 Dose: 0.5 mg Calcium Carbonate/Glycine (Tums) 500 mg CHEWED BID [facility] Last Admin: 04/08/17 08:49 Dose: 500 mg Docusate Sodium (Colace) 100 mg PO BID PRN PRN Reason: Constipation Last Admin: 04/03/17 07:37 Dose: 100 mg Folic Acid (Folic Acid) 1 mg PO DAILY [facility] Last Admin: 04/08/17 08:48 Dose: 1 mg Heparin Sodium (Porcine) (Heparin) 5,000 unit SQ Q12 [facility] Last Admin: 04/08/17 08:49 Dose: 5,000 unit Acetaminophen (Ofirmev) 1,000 mg in 100 mls @ 200 mls/hr IV Q6HP PRN PRN Reason: PAIN/FEVER > 101 Piperacillin Sod/Tazobactam (Sod 3.375 gm/ Dextrose) 50 mls @ 100 mls/hr IV Q6H [facility] Last Admin: 04/08/17 11:20 Dose: 100 mls/hr Vancomycin HCl 1,000 mg/ (Sodium Chloride) 250 mls @ 250 mls/hr IV Q12H [facility] Last Admin: 04/08/17 08:49 Dose: 200 mls/hr Iron Carb/Multivit/Patent Litigation Associate/Folic Acid (Multivitamin W/Minerals) 1 tab PO DAILY [facility] Last Admin: 04/08/17 08:51 Dose: 1 tab Lactobacillus Rhamnosus (Culturelle) 1 cap PO BID [facility] Last Admin: 04/08/17 08:48 Dose: 1 cap Lisinopril (Zestril) 10 mg PO DAILY [facility] Last Admin: 04/08/17 08:48 Dose: 10 mg Naloxone HCl (Narcan) 0.1 mg IV Q2MIN PRN PRN Reason: Opiate Reversal Ondansetron HCl (Zofran) 4 mg IV Q6HP PRN PRN Reason: Nausea And Vomiting Pantoprazole Sodium (Protonix) 40 mg PO BIDAC [facility] Last Admin: 04/08/17 07:13 Dose: 40 mg Prednisone (Prednisone) 60 mg PO QAC [facility] Last Admin: 04/08/17 08:48 Dose: 60 mg Senna/Docusate Sodium (Senna Plus Tablet) 2 tab PO HS PRN PRN Reason: Constipation Sodium Chloride (Saline Flush) 10 ml IV Q8 [facility] Last Admin: 04/08/17 12:40 Dose: Not Given Thiamine HCl (Vitamin B1) 100 mg PO QDAY [facility] Last Admin: 04/08/17 08:48 Dose: 100 mg Vancomycin HCl (Vancomycin Per Pharmacy) 1 order IV UD [facility] Vitamin D (Vitamin D3) 1,000 unit PO BID [facility] Last Admin: 04/08/17 08:48 Dose: 1,000 unit Medical - PN: A/P - Time Spent With Patient Total time spent is greater than 50% in coordination of care (as documented) at patient's floor/unit and/or counseling patient: - Narrative A/P Narrative: A/P Acute hypoxic Respiratory failure: due to lung fibrosis, pna. Pulmonary ( [facility]) was following last week. on Hiflow NC during the day, prn bipap at night, oxygen needs increase with minimal activity. Pneumonia : neg microbiology so far, CT read as likely superimposed PNA and with fever to 102 on 04/02, will cont tx. Currently on Vanco and Zosyn since . s/p 3 days of high dose azithro (ended 04/05). Plan for at least 8 days of abx (end date possibly 04/09 depending on clinical status). Monitor. Added probiotic 04/06to help prevent C diff. Suspect leukocytosis today is related to demargination; cont to trend. clinically stable, Given Bronchiztesis, will need 2-3 weeks of Antibiotics. Should his resp condition worsen, will consider transfer to higher center for bronchoscopy and BAL for culture vs lung bx. ILD: Etiology, aspiration vs rheumatoid vs other. Pulmonary was following and guiding therapy we do not have pulm this week . RF elevated, but ccp negative, IFEANYI mildly positive, c3, c4 wnl. f/u anti DS Ab. sub panel pending, Myositis panel pending, ck and aldolase ordered. Speech therapy ordered. Cont Protonix BID. He had clinical worsening with tapering of steroids from 40mg to 20mg; now improved on 60mg prednisone. Will cont this dose for now; after a few days of stability/improvement, will consider slower taper. This can be done at [facility] facility. BRBPR: likely 2/2 internal hemorrhoid. Cont bowel meds. Monitor for further signs of bleeding. Trend H/H daily for now; currently stable Sepsis: due to pna, clinically improving. Alcohol dependence: not in withdrawal, monitor. CIWA and Ativan D/C'd 04/05. CAD/ CHF/ CVA: Continue statin, lasix, asa, lisinopril, for secondary prophylaxis. Full Code DVT Prophylaxis, Hep SQ Medical - PN: Qual - VTE Deep Vein Thrombosis/Pulmonary Embolism Present on Admission: No
--- NOTE | 2017-04-08 19:26 | Internal Medicine Consult Note ---
Medical - CN: HPI - Data of Consult Consult date: 04/08/17 Requesting Physician: Sravani Pittman [facility] Primary Care Provider: Kristopher Tillman - Consult Narrative Reason for consult: Positive Rheumatoid Factor History of present illness: Mr. Bobo Hayden is a 56 year old Male who was admitted in hospital on 03/29/17 with worsening cough, shortness of breath, dizziness and headaches. He says that symptoms of cough productive of yellow colored sputum and sob had been present since last year but progressively gotten worse. He had CTA done in 2016 which reported changes of severe bronchiectasis along with hilar and mediastinal adenopathy, moderate airspace densities and scattered areas of peripheral honeycombing. TTE in 10/2016 was concerning for mild systolic LV dysfunction and moderate septal hypokinesis. SPECT study was concerning for hypokinetic myocardium with abnormally low EF. CTA on current admission reported extensive bronchiectasis with honeycombing and ground glass infiltrates. He had some leukocytosis at admission but was afebrile. He had some febrile spikes in his admission. He had been admitted with hypoxic respiratory failure and being treated with empiric broad spectrum Antibiotics, diuretics, inhaler treatment and oxygen support. Pulmonology was consulted and impression for interstitial lung insult due to infection or autoimmune process was noted. He had been on prednisone 60 mg daily for last few days. As per Hospitalist services his oxygen requirements got worse when he was tried to taper off prednisone quickly. His oxygen requirements had been variable during his admission but overall he feels improved since he has been hospitalized. Further labs evaluation reported elevation in inflammatory markers and RF at 108 IU/ml. CCP Ab testing was negative. MARGARITA was positive at 1:80. CK level was within normal limits. Aldolase level, ANCA screen, Yumi 1 myositis panel and HIMANSHU results are pending. Rheumatology have been consulted to see if his illness can be explained by systemic rheumatological process. He denies any history of joint pain, joint swelling, morning stiffness, sicca symptoms, muscle weakness, fatigue, weight loss, sinus drainage, mono or polyneuropathy , raynaud's , dysphagia, cytopenias , or unusual cutaneous rashes. No significant family history of systemic autoimmune or connective tissue disorder. He has personal history of alcoholism, CHF and stroke. CC: Sravani Pittman All systems: reviewed and no additional remarkable complaints except as stated - Constitutional Constitutional: Present: chills, lethargy. Absent: anorexia, fatigue - EENT Eyes: Absent: blurry vision, loss of peripheral vision, loss of vision, photophobia Ears: Absent: decreased hearing, ear discharge, ear pain Nose, mouth and throat: Present: dizziness, headache(s). Absent: hoarseness, odynophagia - Cardiovascular Cardiovascular: Present: dyspnea, dyspnea on exertion. Absent: chest pain, chest pain at rest - Respiratory Respiratory: Present: cough, dyspnea, dyspnea on exertion, change in phlegm color - Gastrointestinal Gastrointestinal: Absent: diarrhea, heartburn, odynophagia - Genitourinary Genitourinary: flank pain - Musculoskeletal Musculoskeletal: Absent: arthralgias, back pain, deformity, joint swelling, muscle weakness, myalgias, neck pain, numbness, stiffness, tingling - Integumentary Integumentary: Absent: lesions, pruritus, rash - Neurological Neurological: Absent: loss of vision, memory loss, numbness, paresthesias - Psychiatric Psychiatric: Absent: behavioral changes, confusion, panic attacks - Endocrine Endocrine: Absent: cold intolerance, heat intolerance, increase in ring/shoe/ hat size - Hematologic/Lymphatic Hematologic/Lymphatic: Absent: easy bleeding, easy bruising, lymphadenopathy - Allergic/Immunologic Allergic/Immunologic: Present: wheezing. Absent: tongue swelling, uticaria Medical - CN: PMH Functional capacity: independent ambulation Smoking status: Former smoker Alcohol use: heavy Medical - CN: Meds Home Medications Medication Instructions Recorded Confirmed Type aspirin 81 mg tablet,delayed 81 mg PO QDAY 03/28/17 03/29/17 History release furosemide 20 mg tablet 20 mg PO QDAY 03/28/17 03/29/17 History lisinopril 10 mg tablet 10 mg PO QDAY 03/28/17 03/29/17 History omeprazole 20 mg capsule,delayed 20 mg PO QDAY cap 03/28/17 03/29/17 History release Allergies Allergy/AdvReac Type Severity Reaction Status Date / Time Cyclobenzaprine Allergy Mild Hives Verified 03/30/17 09:27 naproxen Allergy Mild Hives Verified 03/30/17 09:28 Medical - CN: Exam - Constitutional Vitals: Temp Pulse Resp BP Pulse Ox 98.0 F 104 H 20 117/75 89 L 04/08/17 16:00 04/08/17 16:00 04/08/17 16:00 04/08/17 16:00 04/08/17 16:13 General appearance: average body habitus, mild distress - Head Head exam: Present: normal inspection, normocephalic - Eye Eye exam: Present: normal appearance, PERRL. Absent: periorbital swelling, scleral icterus - ENT ENT exam: Present: mucous membranes moist, normal oropharynx. Absent: mucous membranes dry - Neck Neck exam: Present: normal inspection. Absent: lymphadenopathy, tenderness - Respiratory Respiratory exam: Present: rales, respiratory distress, rhonchi - Cardiovascular Cardiovascular exam: Present: +S1, +S2. Absent: systolic murmur - GI/Abdominal GI/Abdominal exam: Present: soft. Absent: mass, tenderness - Expanded Upper Extremity Exam Shoulder exam: Present: full ROM. Absent: erythema, tenderness Upper Arm exam: Present: full ROM. Absent: swelling, tenderness Elbow exam: Present: full ROM. Absent: erythema, swelling, tenderness Forearm wrist exam: Present: full ROM. Absent: erythema, swelling, tenderness Hand wrist exam: Present: full ROM. Absent: erythema, swelling, tenderness - Expanded Lower Extremity Exam Hip exam: Present: full ROM Upper Leg exam: Present: full ROM. Absent: swelling, tenderness Knee exam: Present: full knee extension, full ROM. Absent: swelling, tenderness Lower Leg exam: Present: full ROM. Absent: He's sign, swelling, tenderness Ankle exam: Absent: crepitus, erythema, swelling, tenderness Foot/Toe exam: Absent: erythema, swelling, tenderness Gait: Present: not tested/not observed - Back Exam Back exam: Absent: CVA tenderness (R), muscle spasm, rash noted - Neurological Exam Neurological exam: Present: alert, oriented X3. Absent: motor sensory deficit - Psychiatric Psychiatric exam: Present: normal affect, normal mood. Absent: depressed - Skin Skin exam: Absent: cyanosis, mottled, rash Medical - CN: Result - Labs CBC & Chem 7: 04/08/17 04:00 04/08/17 04:00 Labs: Short CBC 04/08/17 Range/Units 04:00 WBC 16.6 H (4.5-11.0) K/mcL Hgb 11.6 L (13.5-16.5) g/dL Hct 34.7 L (41.0-55.0) % Plt Count 506 H (140-440) K/mcL BMP 04/08/17 04:00 Sodium 138 Potassium 3.7 Chloride 101 Carbon Dioxide 29 BUN 18 Creatinine 0.8 Glucose 100 Calcium 8.5 L Cardiac Enzymes 04/08/17 Range/Units 06:40 Total Creatine Kinase 37 (24-195) IU/L Liver Function 04/08/17 Range/Units 04:00 Total Bilirubin 0.3 (0.0-1.0) mg/dL Direct Bilirubin < 0.2 (0.0-0.3) mg/dL GGT 86 H (8-61) U/L AST 15 (0-37) U/l ALT 27 (0-40) U/l Alkaline Phosphatase 92 (39-117) U/L Albumin 3.0 L (3.2-5.2) gm/dL Medical - CN: A/P (1) Rheumatoid factor positive Status: Acute (2) Abnormal immunological finding in serum Status: Acute (3) ESR raised Status: Acute (4) CRP elevated Status: Acute (5) Pneumonia Status: Acute - Narrative A/P Narrative: 56 year old male with history of alcoholism, stroke, CHF who had been admitted in hospital with hypoxic respiratory failure. He reports worsening symptoms of cough with productive yellow sputum and shortness of breath in last 1 year. CTA of chest in concerning for bronchiectasis with honeycombing and airspace densities. He also had mediastinal and hilar lymphadenopathy. Rheumatology has been consulted for + RF of 108. CCP Ab testing was negative, Inflammatory markers were significantly elevated. CK levels were within normal limites. Blood Cultures were negative. MARGARITA was 1:80. HIMANSHU, myositis panel, ANCA testing and aldolase level is pending. He does not report history concerning for cutaneous rashes, muscle weakness, inflammatory joint pain, cytopenias , mono/ polyneuropathy, worsening kidney functions. I do not think that his history points towards any specific systemic rheumatological process to explain his illness. RF positivity can been seen in RA, connective tissue disorders like SLE, Sjogren's syndrome, inflammatory myositis , systemic vasculitis, myeloproliferative disorders, and chronic infections. He does not have history suggestive of RA , systemic vasculitis, or connective tissue disorders. I suspect infectious process is responsible for his pulmonary disease as he is at high risk for aspiration with history of significant alcohol use. Inflammatory myositis would be less likely given CK level is normal and he does not have any other symptoms suggestive of this process. Sarcoidosis could be a remote possibility but will require tissue diagnosis. Patient is currently on antibiotics and high dose steroids. I will recommend extensive pulmonology work up including bronchoscopy with lavage studies to exclude infectious process and possible lymph node/ lung biopsy before consideration for lobsterman immunosuppressive therapy. Awaiting ANCA, HIMANSHU , aldolase, and myositis panel. Rheumatology can be consulted again if any of those pending labs are concerning for Rheumatological process otherwise will defer management to Pulmonary. Total of 60 min spent in this encounter out of which more than 50% of time was spent in direct face to face patient evaluation, examination, education and emotional counseling. Lenny Escalona M.D. Rheumatology.
[2017-04-08] MEDS: ATORVASTATIN 20 MG TABLET PO SCH (21:02)
[2017-04-09] MEDS: IPRATROPIUM/ALBUTEROL 3 ML AMPUL.NEB NEB SCH ×3 (02:58→11:21)
[2017-04-09] MEDS: 0.9 % SODIUM CHLORIDE 10 ML SYRINGE IV SCH (05:23)
[2017-04-09] MEDS: PIPERACILLIN SODIUM/TAZOBACTAM 3.375 GM in DEXTROSE 5% IN WATER 50 ML IV SCH ×2 (05:23→11:59)
[2017-04-09 07:03] LABS: Basophils # (Auto) 0 K/mcL (0.0-0.3); Basophils % (Auto) 0.1 % (0.0-2.0); Eosinophils # (Auto) 0.2 K/mcL (0.0-0.7); Eosinophils % (Auto) 1.3 % (0.0-7.0); Granulocytes % (Auto) 81.4 % (38.0-78.0); Lymphocytes # (Auto) 1.6 K/mcL (1.5-4.8); Lymphocytes % (Auto) 9.8 % (15.5-49.0); Mean Cell Volume 86.1 fL (80.0-100.0); Mean Corpuscular HGB Conc 33.2 g/dL (31.0-36.0); Mean Corpuscular Hemoglobin 28.5 pg (26.0-34.0); Monocytes # (Auto) 1.2 K/mcL (0.1-0.9); Monocytes % (Auto) 7.4 % (1.0-12.0); Platelet Count 521 K/mcL (140-440); RBC 4.04 M/mcL (4.50-5.90); Red Cell Distribution Width 13.8 % (11.5-14.5)
[2017-04-09 07:28] LABS: ALT/SGPT 27 U/l (0-40); Albumin 3.3 gm/dL (3.2-5.2); Albumin/Globulin Ratio 0.9 (1.0-2.3); Alkaline Phosphatase 92 U/L (39-117); Bilirubin,Direct < 0.2 mg/dL (0.0-0.3); Blood Urea Nitrogen 14 mg/dl (6-20); Gamma Glutamyl Transpeptidase 83 U/L (8-61); Magnesium 2.4 mg/dL (1.6-2.5); Uric Acid 3.1 mg/dL (2.5-8.0)
[2017-04-09] MEDS ORDERED: ASPIRIN 325 MG TABLET.DR PO SCH (09:00)
[2017-04-09] MEDS: BUDESONIDE 0.5 MG/2 ML AMPUL.NEB NEB SCH (09:18)
[2017-04-09] MEDS: predniSONE 20 MG TABLET PO SCH (09:33)
[2017-04-09] MEDS: ASPIRIN 81 MG TAB.CHEW PO SCH (09:33)
[2017-04-09] MEDS: LACTOBACILLUS 1 CAPSULE PO SCH (09:33)
[2017-04-09] MEDS: FOLIC ACID 1 MG TABLET PO SCH (09:33)
[2017-04-09] MEDS: HEPARIN 5,000 UNIT/ML VIAL SQ SCH (09:33)
[2017-04-09] MEDS: PANTOPRAZOLE 40 MG TABLET PO SCH (09:33)
[2017-04-09] MEDS: VANCOMYCIN 1,000 MG in 0.9 % SODIUM CHLORIDE 250 ML IV SCH (09:33)
[2017-04-09] MEDS: CALCIUM CARBONATE 500 MG TAB.CHEW CHEWED SCH (09:33)
[2017-04-09] MEDS: LISINOPRIL 10 MG TABLET PO SCH (09:33)
[2017-04-09] MEDS ORDERED: FUROSEMIDE 20 MG/2 ML VIAL IV SCH ×3 (09:44→21:00)
[2017-04-09] MEDS: MULTIVIT,THER IRON,CA,FA & MIN 1 TABLET PO SCH (09:45)
[2017-04-09] MEDS: THIAMINE 100 MG TABLET PO SCH (09:46)
[2017-04-09] MEDS: VITAMIN D3 1,000 UNIT TABLET PO SCH (09:46)
--- NOTE | 2017-04-09 10:15 | XRay Report ---
HISTORY: Reason for Exam:hypoxia and follow-up pulmonary infiltrates FINDINGS: Severe widespread alveolar opacities are present throughout both lungs. The greatest consolidation is around the left hilum and in the left lower lobe. Air bronchograms are present in the left lower lobe. No pneumothorax or pleural effusion are present. The heart is partially obscured by the consolidated lung parenchyma. There has been little change since 04/03 and 04/05/2017. IMPRESSION: Persistent bilateral pulmonary infiltrates which could be due to congestive heart failure with pulmonary edema, severe pneumonia or ARDS Interpreted and Authenticated by: Parish Cummings 04/09/17
[2017-04-09] MEDS ORDERED: DOCUSATE SODIUM 100 MG CAPSULE PO PRN (12:01)
[2017-04-09] MEDS ORDERED: NALOXONE HCL 0.4 MG/ML VIAL IV PRN (12:01)
[2017-04-09] MEDS ORDERED: ONDANSETRON 4 MG/2 ML VIAL IV PRN (12:01)
[2017-04-09] MEDS ORDERED: ACETAMINOPHEN 325 MG TABLET PO PRN (12:01)
[2017-04-09] MEDS ORDERED: ACETAMINOPHEN 1,000 MG/100 ML BOTTLE IV PRN (12:01)
[2017-04-09] MEDS ORDERED: ALBUTEROL SULFATE 2.5 MG/3 ML NEBULIZER NEB PRN (12:01)
[2017-04-09] MEDS ORDERED: HYDROcodone/APAP 5/325MG TABLET PO PRN (12:01)
[2017-04-09] MEDS ORDERED: VANCOMYCIN PER PHARMACY IV SCH (12:01)
[2017-04-09] MEDS ORDERED: PIPERACILLIN SODIUM/TAZOBACTAM 3.375 GM in DEXTROSE 5% IN WATER 50 ML IV SCH ×2 (13:00→18:00)
[2017-04-09] MEDS ORDERED: 0.9 % SODIUM CHLORIDE 10 ML SYRINGE IV SCH (14:00)
--- NOTE | 2017-04-09 14:08 | Transfer Summary ---
Transfer Discharge Sum: Prov Patient information: Note initiated : 04/09/17 at 2:06 pm Service Date, if different from initiated Date: [] Patient: Drew Broussard Jr 56 y/o M admitted on 03/29/17 for shortness of breath. Chief Complaint: [] Date of admission: 03/29/17 21:21 Discharge Date: 04/09/17 Primary care physician: Kristopher Tillman Admitting clinician: Sravani Pittman Consults: 03/30/17 13:02 Consult to Physician [CONS] Routine Comment: IPF? Consulting Provider: Aiden Burr Reason For Exam: Physician to Consult 04/08/17 13:14 Consult to Physician [CONS] Routine Comment: ILD Consulting Provider: Lenny Escalona Reason For Exam: Physician to Consult Attending physician on discharge: Lashonda Jameson Receiving physician/facility: Dr Medina. Transfer Discharge Sum: Med - Medications Active and Home Medications: Home Medications aspirin 81 mg tablet,delayed release 81 mg PO QDAY 03/28/17 [History Confirmed 03/29/17] furosemide 20 mg tablet 20 mg PO QDAY 03/28/17 [History Confirmed 03/29/17] lisinopril 10 mg tablet 10 mg PO QDAY 03/28/17 [History Confirmed 03/29/17] omeprazole 20 mg capsule,delayed release 20 mg PO QDAY cap 03/28/17 [History Confirmed 03/29/17] Active Medications Acetaminophen (Tylenol) 650 mg PO Q6HP PRN PRN Reason: PAIN/FEVER > 101 Hydrocodone Bitart/Acetaminophen (Lloyd 5/325mg) 1 tab PO Q4HP PRN PRN Reason: Pain Albuterol Sulfate (Ventolin) 2.5 mg NEB Q2HP PRN PRN Reason: Shortness Of Breath Albuterol/Ipratropium (Duoneb) 3 ml NEB Q4HRT LOGAN Aspirin (Aspirin) 81 mg PO DAILY LOGAN Atorvastatin Calcium (Lipitor) 20 mg PO HS LOGAN Budesonide (Pulmicort) 0.5 mg NEB Q12 [facility] Calcium Carbonate/Glycine (Tums) 500 mg CHEWED BID LOGAN Docusate Sodium (Colace) 100 mg PO BID PRN PRN Reason: Constipation Folic Acid (Folic Acid) 1 mg PO DAILY LOGAN Furosemide (Lasix) 40 mg IV Q12 [facility] Heparin Sodium (Porcine) (Heparin) 5,000 unit SQ Q12 [facility] Acetaminophen (Ofirmev) 1,000 mg in 100 mls @ 200 mls/hr IV Q6HP PRN PRN Reason: PAIN/FEVER > 101 Vancomycin HCl 1,000 mg/ (Sodium Chloride) 250 mls @ 250 mls/hr IV Q12H [facility] Piperacillin Sod/Tazobactam (Sod 3.375 gm/ Dextrose) 50 mls @ 100 mls/hr IV Q6 [facility] Iron Carb/Multivit/Supervisor Core [employer]illing/Folic Acid (Multivitamin W/Minerals) 1 tab PO DAILY [facility] Lactobacillus Rhamnosus (Culturelle) 1 cap PO BID [facility] Lisinopril (Zestril) 10 mg PO DAILY [facility] Naloxone HCl (Narcan) 0.1 mg IV Q2MIN PRN PRN Reason: Opiate Reversal Ondansetron HCl (Zofran) 4 mg IV Q6HP PRN PRN Reason: Nausea And Vomiting Pantoprazole Sodium (Protonix) 40 mg PO BIDAC [facility] Prednisone (Prednisone) 60 mg PO QAC [facility] Senna/Docusate Sodium (Senna Plus Tablet) 2 tab PO HS PRN PRN Reason: Constipation Sodium Chloride (Saline Flush) 10 ml IV Q8 [facility] Last Admin: 04/09/17 12:33 Dose: 10 ml Thiamine HCl (Vitamin B1) 100 mg PO QDAY [facility] Vancomycin HCl (Vancomycin Per Pharmacy) 1 order IV UD [facility] Vitamin D (Vitamin D3) 1,000 unit PO BID [facility] Transfer Discharge Sum: Hosp Hospital course: Mr. Bobo Hayden is a 56 year old Male with h/o CAD, CVA, Etoh use, who presented to the hospital with shortness of breath, hypoxia, weakness, headache and dizziness. He was noted to be hypoxic on admission and CT chest to r/o PE showed bronchiatesis, ILD and superimposed PNA, no PE. The patient was admitted to the hospital for further management. Acute hypoxic respiratory failure: Due to pna and ILD, he was on 4L oxygen on presentation. Given high suspicion of aspiration related pna, he was treated with IV zosyn from admission. The patient also had sepsis with fever and elevated wbc count. Which improved initially with this, the patient however continued to have low grade fevers and his condition continued to worsen. His oxygen requirement kept getting worse througout the stay, intially needing hi flow nasal canula and then trasitioning to bipap on prn basis. Since yesterday he was unable to keep his oxygen saturation > 90 even on 15L of oxygen and was laced on continuos bipap, which he is tolerating very well. His ABG on present setting is 7.45/53/71. his x ray today is reported at "Persistent bilateral pulmonary infiltrates which could be due to congestive heart failure with pulmonary edema, severe pneumonia,or ARDS" Given his worsening condition, and lack of available pulmonary and critical care support he will be transferred to a higher center. Patient is in agreement with this plan. PNA: Treated with broad spectrum Antibiotics, cultures have been negative so far. The patient has been on zosyn given his high supspicion of aspiration pneumonitis since admission, however given persitant fevers later, vancomycin was also added on the 16 march (zosyn since 29 March). patient also completed a 3 day course with zithromax 500mg daily for atypical bactermia. patients resp condition seems to be worsening, and has been placed on IV lasix given that he is 4-5 L positive today, but clinically does not look that overloaded, nonethe less hopefully lasix will help him keep dry. ILD/ bronchiectasis. : Pulmonary and Rheumatology consult appreciated, no clear evidence of autoimmune process at present, RA positivity noted but CCP is neg, MARGARITA is mildly positiev, CK is normal, dolly subanal of MARGARITA, anti Jamila antibodies are still pending. Rheumatology consult did not feel that autoimmune process was at play and the patient. The patient is on prednisone 60mg once a day to help with same. He will continue same dose and this can be gradually tapered off as the patient improves. His vasculitis panel is pending, c3,c4 is normal Barium swallow did show reflux disease. CHF/ CAD Ptatient did not have any significant issues with rest of his medical illness. his medications were continued, pt denies any chest pain, echo shows low normal lvef, and mildly dialated lv. The patient will benefit from pulmonary evaluation and possible bronchoscopy for lavage for atypical mycobateria/ fungal infection to tailor antibiotics. He may also benefit from a lung biopsy. Given that these services are not available, and the patients respiratory condition is worsening, he will be transferred to a higher center. Dr Medina at [facility] accepted the patient for transfer. - Time Spent with Patient Total time spent providing and/or coordinating transfer services: Greater than 30 minutes Transfer Discharge Sum: Exam - Constitutional Vitals: Vital Signs Temp Pulse Pulse Resp BP BP Pulse Ox 04/09/17 13:01 98 H 26 H 133/79 96 04/09/17 13:00 97 H 16 133/79 98 04/09/17 12:16 97 H 36 H 124/76 97 04/09/17 12:09 94 H 30 H 98 04/09/17 12:03 28 H 124/76 98 04/09/17 11:23 97 H 26 H 04/09/17 11:03 95 H 28 H 137/77 96 04/09/17 10:40 100 H 35 H 137/77 97 04/09/17 09:25 92 H 24 H 04/09/17 09:19 92 H 24 H 04/09/17 09:12 139/93 92 04/09/17 08:00 97.4 F 99 H 24 H 139/93 95 04/09/17 07:46 91 H 33 H 96 04/09/17 07:35 22 94 04/09/17 05:20 97 H 21 92 04/09/17 04:11 98.2 F 24 H 116/62 90 04/08/17 23:37 22 130/77 94 04/08/17 23:07 97 H 24 H 04/08/17 22:00 92 04/08/17 20:22 98.3 F 22 131/77 94 04/08/17 19:45 93 04/08/17 19:42 105 H 24 H 04/08/17 19:18 95 04/08/17 16:13 89 L 04/08/17 16:00 98.0 F 104 H 20 117/75 96 04/08/17 15:21 104 H 22 Intake and Output 04/09/17 04/09/17 04/09/17 05:59 13:59 21:59 Intake Total 300 / 300 50 / 50 Output Total 300 / 300 2024 Balance 0 / 0 -1974 / Intake: IV 300 / 300 50 / 50 Zosyn 3.375 gm In 50 / 50 50 / 50 Dextrose 5% in Water 50 ml @ 100 mls/hr IV Q6H [facility] Rx#:[id number] Vancomycin 1,000 mg In 250 / 250 Sodium Chloride 0.9% 250 ml @ 250 mls/hr IV Q12H [facility] Rx#:[id number] Output: Void Amount 300 / 300 2024 Additional comments: Constitutional; Afebrile, cooperative, alert, not in distress. Eyes- No icterus, , No periorbital swelling Ears- Ext ear normal, hearing normal to conversation. Neck- Midline trachea, supple Respiratory system: Air Entry equal on both sides, maykel conducted breath sounds, no wheezing noted. tachypenic. CVS- Rate rhythm regular, S1,S2 heard, no gallop, no rub. Abdomen- Soft nontender abdomen, no organomegaly, no tenderness, no guarding or rigidity, FIN[employer]- AOOx3, moving all extremities, no gross focal deficit noted. Transfer Discharge Sum: Data Procedures and tests throughout hospitalization: Pending Orders 03/30/17 01:42 Bedrest w/bathroom privileges DAILY Elevate head of bed .ROUTINE IV Insertion/Management QSHIFT Notify Provider .PRN Pulse Oximetry CONT 03/30/17 02:06 Nebulizer management .Routine 03/30/17 03:14 Case Management Referral .Routine 03/30/17 13:02 Consult to Physician [CONS] Routine 04/02/17 10:02 Nebulizer management .Routine 04/02/17 17:27 Lactic Acid (RT) NOW 04/03/17 Lunch Low Sodium Diet (2gm) 04/04/17 07:50 PEP Therapy/Acapella .ROUTINE 04/04/17 17:27 MARGARITA Comprehensive Panel Stat DNA Antibody DS Stat 04/05/17 12:22 ST [Speech Therapy Eval & Treat] .Routine 04/08/17 06:40 ANCA Scrn W/MPO,PR3,W/Rflx TTR Urgent MYOSITIS ASSESSR PLUS JAMILA-1 ABS Urgent 04/08/17 07:48 Chest physiotherapy TID 04/08/17 12:55 Aldolase Stat 04/08/17 13:14 Consult to Physician [CONS] Routine 04/09/17 10:14 ABG (RT) NOW 04/09/17 12:01 Acetaminophen [Ofirmev] 1,000 mg in 100 ml IV Q6HP Acetaminophen [Tylenol] 650 mg PO Q6HP PRN Albuterol Sulfate [Ventolin] 2.5 mg NEB Q2HP PRN Docusate Sodium [Colace] 100 mg PO BID PRN HYDROcodone/APAP 5/325MG [Lloyd 5/325Mg] 1 tab PO Q4HP PRN Naloxone HCl [Narcan] 0.1 mg IV Q2MIN PRN Ondansetron [Zofran] 4 mg IV Q6HP PRN Vancomycin Per Pharmacy 1 order IV UD Nebulizer management .Routine 04/09/17 14:00 0.9 % Sodium Chloride [Saline Flush] 10 ml IV Q8 04/09/17 15:00 Ipratropium/Albuterol [Duoneb] 3 ml NEB Q4HRT 04/09/17 17:00 Pantoprazole [Protonix] 40 mg PO BIDAC 04/09/17 18:00 Piperacillin Sodium/Tazobactam [Zosyn] 3.375 gm Dextrose 5% in Water 50 ml IV Q6 Vancomycin 1,000 mg 0.9 % Sodium Chloride [Sodium Chloride 0.9%] 250 ml IV Q12H 04/09/17 21:00 Atorvastatin [Lipitor] 20 mg PO HS Budesonide [Pulmicort] 0.5 mg NEB Q12 Calcium Carbonate [Tums] 500 mg CHEWED BID Furosemide [Lasix] 40 mg IV Q12 Heparin 5,000 unit SQ Q12 Lactobacillus [Culturelle] 1 cap PO BID Sennosides/Docusate Sodium [Senna Plus Tablet] 2 tab PO HS PRN Vitamin D3 1,000 unit PO BID 04/10/17 04:00 Complete Blood Count DAILY Inpatient Panel DAILY 04/10/17 08:00 predniSONE 60 mg PO [facility] 04/10/17 09:00 Aspirin 81 mg PO DAILY Folic Acid 1 mg PO DAILY Lisinopril [Zestril] 10 mg PO DAILY Multivit,Ther Iron,Ca,FA & Min [Multivitamin W/Minerals] 1 tab PO DAILY Thiamine [Vitamin B1] 100 mg PO QDAY 04/11/17 04:00 Complete Blood Count DAILY Inpatient Panel DAILY 04/12/17 04:00 Complete Blood Count DAILY Inpatient Panel DAILY 04/13/17 04:00 Complete Blood Count DAILY Inpatient Panel DAILY 04/14/17 04:00 Complete Blood Count DAILY Inpatient Panel DAILY Transfer Discharge Sum: A/P - Plan Functional capacity at transfer: bed bound Overall status at transfer: patient is not back to baseline Disposition: er [facility] Quality Measure Queries - VTE Deep Vein Thrombosis/Pulmonary Embolism Present on Admission: No
[2017-04-09] MEDS ORDERED: IPRATROPIUM/ALBUTEROL 3 ML AMPUL.NEB NEB SCH (15:00)
[2017-04-09] MEDS ORDERED: PANTOPRAZOLE 40 MG TABLET PO SCH (17:00)
[2017-04-09] MEDS ORDERED: VANCOMYCIN 1,000 MG in 0.9 % SODIUM CHLORIDE 250 ML IV SCH (18:00)
[2017-04-09] MEDS ORDERED: SENNOSIDES/DOCUSATE SODIUM 1 TAB TABLET PO PRN (21:00)
[2017-04-09] MEDS ORDERED: LACTOBACILLUS 1 CAPSULE PO SCH (21:00)
[2017-04-09] MEDS ORDERED: VITAMIN D3 1,000 UNIT TABLET PO SCH (21:00)
[2017-04-09] MEDS ORDERED: HEPARIN 5,000 UNIT/ML VIAL SQ SCH (21:00)
[2017-04-09] MEDS ORDERED: CALCIUM CARBONATE 500 MG TAB.CHEW CHEWED SCH (21:00)
[2017-04-09] MEDS ORDERED: BUDESONIDE 0.5 MG/2 ML AMPUL.NEB NEB SCH (21:00)
[2017-04-09] MEDS ORDERED: ATORVASTATIN 20 MG TABLET PO SCH (21:00)
[2017-04-10] MEDS ORDERED: predniSONE 20 MG TABLET PO SCH (08:00)
[2017-04-10] MEDS ORDERED: ASPIRIN 81 MG TAB.CHEW PO SCH (09:00)
[2017-04-10] MEDS ORDERED: THIAMINE 100 MG TABLET PO SCH (09:00)
[2017-04-10] MEDS ORDERED: MULTIVIT,THER IRON,CA,FA & MIN 1 TABLET PO SCH (09:00)
[2017-04-10] MEDS ORDERED: FOLIC ACID 1 MG TABLET PO SCH (09:00)
[2017-04-10] MEDS ORDERED: LISINOPRIL 10 MG TABLET PO SCH (09:00)
[2017-04-16 09:44] LABS: ANCA Screen NEGATIVE (NEGATIVE); Myeloperoxidase Antibody <1.0 AI (<1.0)
[2017-04-18 11:32] LABS: DNA AB(DS) Crithidia, IFA NEGATIVE (NEGATIVE); Rhuematoid Factor 97 IU/mL (<14); SM Antibody <1.0 NEG AI (SEE COMMENT); Scl-70 <1.0 NEG AI (SEE COMMENT)
== END 2017-04-09 11:47 | disposition short-term general hospital (02) | DRG 871 ==
LOC: ED 18:15 → MEDSUR 21:21 → ICU 04-02 12:02
PROVIDERS: ADMIT Internal Medicine; ATTEND Internal Medicine